=== PATIENT | female | born 1985 | race African-American/Black ===

== ENCOUNTER 2017-07-23 00:16 | Emergency (ER) | payer OTHER ==
[2017-07-23] MEDS ORDERED: CIPROFLOXACIN HCL 500 MG TABLET PO ONE (02:55)
[2017-07-23] MEDS ORDERED: CLONIDINE HCL 0.1 MG TABLET PO ONE (02:55)
--- NOTE | 2017-07-23 02:57 | ER Document Report ---
HPI - HPI Patient complains to provider of: foot ulcer Onset: Other - Chronic, worse over 2 days Onset/Duration: Worse Quality of pain: Achy Pain Level: 2 Context: Patient states that she has a chronic wound to her left foot that started as a blister one year ago and then developed into a callus. Patient states she cut the callus off 2 days ago after he started to lift up. Patient states she has noticed malodorous drainage from her foot. Patient denies any fever or significant foot tenderness. Patient does have a history of high blood pressure diabetes although has not been on any medication for the past 3 months as she had temporarily lost her insurance. Patient does have insurance now and has an appointment with her primary doctor in 2 weeks for recheck. Associated Symptoms: Other - Foot ulcer. denies: Fever Exacerbated by: Denies Relieved by: Denies Similar symptoms previously: Yes Recently seen / treated by doctor: No - ROS ROS below otherwise negative: Yes Systems Reviewed and Negative: Yes All other systems reviewed and negative - CONSTITUTIONAL Constitutional: DENIES: Fever, Chills - NEURO Neurology: DENIES: Headache - CARDIOVASCULAR Cardiovascular: DENIES: Chest pain - RESPIRATORY Respiratory: DENIES: Trouble Breathing, Coughing - GASTROINTESTINAL Gastrointestinal: DENIES: Nausea - REPRODUCTIVE Reproductive: DENIES: : - MUSCULOSKELETAL Musculoskeletal: DENIES: Swelling - DERM Skin Color: Normal Skin Problems: Ulcer Past Medical History - General Information source: Patient - Social History Smoking Status: Current Every Day Smoker Smoking Education Provided: Yes Drug Abuse: None 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 Lives with: Family Family History: Reviewed & Not Pertinent, Hypertension Patient has suicidal ideation: No Patient has homicidal ideation: No - Past Medical History Cardiac Medical History: Reports: Hx Hypertension Endocrine Medical History: Reports: Hx Diabetes Mellitus Type 2 Renal/ Medical History: Denies: Hx Peritoneal Dialysis Surgical Hx: Negative - Immunizations Hx Diphtheria, Pertussis, Tetanus Vaccination: No Vertical Provider Document - CONSTITUTIONAL Agree With Documented VS: Yes Exam Limitations: No Limitations General Appearance: WD/WN, No Apparent Distress, Obese - INFECTION CONTROL TRAVEL OUTSIDE OF THE [place] IN LAST 30 DAYS: No - HEENT HEENT: Atraumatic, Normocephalic - NECK Neck: Normal Inspection, Supple - RESPIRATORY Respiratory: Breath Sounds Normal, No Respiratory Distress O2 Sat by Pulse Oximetry: 99 - CARDIOVASCULAR Cardiovascular: Regular Rate, Regular Rhythm Pulses: Normal: Dorsalis pedis - BACK Back: Normal Inspection - MUSCULOSKELETAL/EXTREMETIES Musculoskeletal/Extremeties: MAYRA, FROM - NEURO Level of Consciousness: Awake, Alert, Appropriate Motor/Sensory: No Motor Deficit - DERM Integumentary: Warm, Dry. negative: Abscess Notes: Patient with chronic foot ulcer to plantar surface of left foot. Wound nontender. No surrounding erythema. No overt odor appreciated. Wound with a sloughy yellow-brown appearance Course - Re-evaluation Re-evalutation: 07/23/17 04:15 Patient states that she has previously taken glipizide to manage her diabetes but ran out a few months ago. Patient is uncertain of the blood pressure medication but does suspect that she has taken lisinopril to treat her blood pressure. Discussed results of patient's diagnostic tests with her. Patient encouraged to follow-up with primary doctor for recheck of her foot wound as well as her high blood pressure and diabetes management. Patient encouraged to follow-up with the wound clinic for further management of her chronic foot ulcer. Patient without any signs concerning for osteomyelitis or cellulitis at this time. Will place patient on antibiotic to cover given her reported history of malodorous drainage. - Vital Signs Vital signs: Temp Pulse Resp BP Pulse Ox 98.9 F 85 16 182/119 H 99 07/23/17 00:58 07/23/17 00:58 07/23/17 02:20 07/23/17 00:58 07/23/17 02:20 - Laboratory Result Diagrams: 07/23/17 01:57 07/23/17 01:57 Laboratory results interpreted by me: 07/23/17 06:02 Labs- Entire Visit 07/23/17 07/23/17 01:57 01:57 WBC 5.9 RBC 5.21 Hgb 14.1 Hct 41.9 MCV 80 MCH 26.9 L MCHC 33.5 RDW 14.3 H Plt Count 198 Seg Neutrophils % 46.8 Lymphocytes % 45.3 H Monocytes % 5.7 Eosinophils % 1.7 Basophils % 0.5 Absolute Neutrophils 2.7 Absolute Lymphocytes 2.7 Absolute Monocytes 0.3 Absolute Eosinophils 0.1 Absolute Basophils 0.0 Sodium 139.8 Potassium 3.6 Chloride 102 Carbon Dioxide 25 Anion Gap 13 BUN 14 Creatinine 0.57 Est GFR ( Amer) > 60 Est GFR (Non-Af Amer) > 60 Glucose 251 H Calcium 8.9 Total Bilirubin 0.6 Direct Bilirubin 0.3 Indirect Bilirubin Not Reportable Neonat Total Bilirubin Not Reportable AST 29 ALT 20 Alkaline Phosphatase 79 Total Protein 7.7 Albumin 3.8 - Diagnostic Test Radiology reviewed: Reports reviewed Discharge - Discharge Clinical Impression: Hx of essential hypertension Diabetic foot ulcer Qualifiers: Diabetic foot ulcer location: unspecified part of foot Diabetes mellitus type: type 2 Laterality: left Non-pressure ulcer stage: unspecified non-pressure ulcer stage Qualified Code(s): E11.621 - Type 2 diabetes mellitus with foot ulcer Condition: Stable Disposition: HOME, SELF-CARE Instructions: Diabetes ([facility]), Foot or Leg Ulcer ([facility]), High Blood Pressure, Requiring Treatment ([facility]) Additional Instructions: Return immediately for any new or worsening symptoms Followup with your primary care provider, call tomorrow to make a followup appointment Follow-up with the wound clinic for further management of diabetic foot ulcer Keep a log of your blood pressure as well as your blood sugar readings to take to your appointment with your primary doctor in 2 weeks. Monitor your blood sugar daily Prescriptions: Ciprofloxacin HCl [Cipro 500 mg Tablet] 500 mg PO BID #14 tablet Glipizide [Glipizide ER] 2.5 mg PO DAILY #15 tab.er.24 Lisinopril 10 mg PO DAILY #15 tablet Forms: Elevated Blood Pressure Referrals: ROBERT MITCHELL MD [Primary Care Provider] - Follow up in 3-5 days Wound Care [Provider Group] - 07/25/17
[2017-07-23 03:15] LABS: ABSOLUTE EOSINOPHILS # (AUTO) 0.1 10^3/uL (0.0-0.6); ABSOLUTE LYMPHOCYTES (AUTO) 2.7 10^3/uL (0.5-4.7); ABSOLUTE MONOCYTES (AUTO) 0.3 10^3/uL (0.1-1.4); ABSOLUTE NEUT (AUTO) 2.7 10^3/uL (1.7-8.2); BASOPHILS % (AUTO) 0.5 % (0-2); EOSINOPHILS % (AUTO) 1.7 % (0-6); HEMATOCRIT 41.9 % (36.0-47.0); HEMOGLOBIN 14.1 g/dL (12.0-15.5); HGB HCT DIFFERENCE 0.4; LYMPHOCYTES % (AUTO) 45.3 % (13-45); MEAN CORPUSCULAR HEMOGLOBIN 26.9 pg (27.0-33.4); MEAN CORPUSCULAR HGB CONC 33.5 g/dL (32.0-36.0); MEAN CORPUSCULAR VOLUME 80 fl (80-97); MONOCYTES % (AUTO) 5.7 % (3-13); RED BLOOD COUNT 5.21 10^6/uL (3.72-5.28); RED CELL DISTRIBUTION WIDTH 14.3 % (11.5-14.0); SEGMENTED NEUTROPHILS % (AUTO) 46.8 % (42-78); WHITE BLOOD COUNT 5.9 10^3/uL (4.0-10.5)
--- NOTE | 2017-07-23 03:25 | RADIOLOGY REPORT (SQ) ---
EXAM DESCRIPTION: FOOT LEFT COMPLETE COMPLETED DATE/TIME: 07/23/2017 3:07 am REASON FOR STUDY: foot wound, hx DM COMPARISON: None. NUMBER OF VIEWS: Three views. TECHNIQUE: AP, lateral and oblique radiographic images acquired of the left foot. LIMITATIONS: None. FINDINGS: MINERALIZATION: Normal. BONES: No acute fracture or dislocation. No worrisome bone lesions. Small calcaneal enthesophytes. Minimal osteophyte of the navicular at the talonavicular joint. JOINTS: No effusions. SOFT TISSUES: No soft tissue swelling. No foreign body. OTHER: No other significant finding. IMPRESSION: No acute findings. TECHNICAL DOCUMENTATION: JOB ID: [id number] [employer]- All Rights Reserved
[2017-07-23 03:30] LABS: ALANINE AMINOTRANSFERASE 20 U/L (9-52); ALBUMIN 3.8 g/dL (3.5-5.0); ALKALINE PHOSPHATASE 79 U/L (38-126); ANION GAP 13 (5-19); ASPARTATE AMINO TRANSFERASE 29 U/L (14-36); BILIRUBIN,DIRECT 0.3 mg/dL (0.0-0.4); BILIRUBIN,TOTAL 0.6 mg/dL (0.2-1.3); BLOOD UREA NITROGEN 14 mg/dL (7-20); CALCIUM 8.9 mg/dL (8.4-10.2); CARBON DIOXIDE 25 mmol/L (22-30); CHLORIDE 102 mmol/L (98-107); CREATININE RESULT 0.57 mg/dL (0.52-1.25); GLUCOSE 251 mg/dL (75-110); POTASSIUM 3.6 mmol/L (3.6-5.0); SODIUM 139.8 mmol/L (137-145); TOTAL PROTEIN 7.7 g/dL (6.3-8.2)
[2017-07-23 04:44] VITALS: BP 161/93
== END 2017-07-23 04:35 | disposition home or self-care (01) ==
LOC: ER 00:16
DX: E11.621 Type 2 diabetes mellitus with foot ulcer (principal); L97.529 Non-pressure chronic ulcer of other part of left foot with unspecified severity; T38.3X6A Underdosing of insulin and oral hypoglycemic [antidiabetic] drugs, initial encounter; Z91.128 Patient's intentional underdosing of medication regimen for other reason; Z91.14 Patient's other noncompliance with medication regimen; I10 Essential (primary) hypertension; F17.200 Nicotine dependence, unspecified, uncomplicated; Z71.6 Tobacco abuse counseling
CPT/HCPCS: 36415; 80053; 85025; 87040; 87070; 87075; 87077; 87186; 87205; 99284

== ENCOUNTER 2018-11-08 07:26 | Emergency (ER) | payer OTHER ==
[2018-11-08] MEDS ORDERED: RINGERS SOLUTION,LACTATED 1,000 ML IV ONE (08:27)
[2018-11-08 08:51] LABS: ABSOLUTE BASOPHILS # (AUTO) 0.1 10^3/uL (0.0-0.2); ABSOLUTE EOSINOPHILS # (AUTO) 0.1 10^3/uL (0.0-0.6); ABSOLUTE LYMPHOCYTES (AUTO) 1.8 10^3/uL (0.5-4.7); ABSOLUTE MONOCYTES (AUTO) 0.4 10^3/uL (0.1-1.4); ABSOLUTE NEUT (AUTO) 2.9 10^3/uL (1.7-8.2); EOSINOPHILS % (AUTO) 1.9 % (0-6); HEMATOCRIT 38.6 % (36.0-47.0); HEMOGLOBIN 13.2 g/dL (12.0-15.5); LYMPHOCYTES % (AUTO) 34.6 % (13-45); MEAN CORPUSCULAR HEMOGLOBIN 26.3 pg (27.0-33.4); MEAN CORPUSCULAR HGB CONC 34.2 g/dL (32.0-36.0); MEAN CORPUSCULAR VOLUME 77 fl (80-97); MONOCYTES % (AUTO) 8.3 % (3-13); PLATELET COUNT 234 10^3/uL (150-450); RED BLOOD COUNT 5.02 10^6/uL (3.72-5.28); RED CELL DISTRIBUTION WIDTH 16.1 % (11.5-14.0); SEGMENTED NEUTROPHILS % (AUTO) 54.2 % (42-78); TOTAL CELLS COUNTED % (AUTO) 100 %; WHITE BLOOD COUNT 5.3 10^3/uL (4.0-10.5)
[2018-11-08 09:10] LABS: ALANINE AMINOTRANSFERASE 16 U/L (9-52); ALBUMIN 3.9 g/dL (3.5-5.0); ALKALINE PHOSPHATASE 65 U/L (38-126); ANION GAP 11 (5-19); ASPARTATE AMINO TRANSFERASE 13 U/L (14-36); BILIRUBIN,DIRECT 0.2 mg/dL (0.0-0.4); BILIRUBIN,TOTAL 0.6 mg/dL (0.2-1.3); BLOOD UREA NITROGEN 9 mg/dL (7-20); CALCIUM 9.5 mg/dL (8.4-10.2); CARBON DIOXIDE 23 mmol/L (22-30); CHLORIDE 100 mmol/L (98-107); GLUCOSE 256 mg/dL (75-110); POTASSIUM 4.5 mmol/L (3.6-5.0); SODIUM 134.3 mmol/L (137-145); TOTAL PROTEIN 7.3 g/dL (6.3-8.2)
[2018-11-08 09:18] LABS: APPEARANCE,URINE CLEAR; BILIRUBIN,URINE NEGATIVE (NEGATIVE); COLOR,URINE YELLOW; GLUCOSE, URINE >=500 mg/dL (NEGATIVE); KETONES,URINE TRACE mg/dL (NEGATIVE); LEUKOCYTE ESTERASE,URINE NEGATIVE (NEGATIVE); NITRITE,URINE NEGATIVE (NEGATIVE); PROTEIN,URINE NEGATIVE (NEGATIVE); URINE SPECIFIC GRAVITY 1.043; UROBILINOGEN,URINE NEGATIVE mg/dL (<2.0)
[2018-11-08] MEDS ORDERED: NORMAL SALINE 1000 ML 1,000 ML IV ONE (09:25)
--- NOTE | 2018-11-08 09:30 | ER Document Report ---
ED General - General Chief Complaint: Dizziness Stated Complaint: DIZZY, NAUSEA, VISION ISSUE Time Seen by Provider: 11/08/18 08:19 Primary Care Provider: ROBERT MITCHELL MD [Primary Care Provider] - Follow up as needed Notes: Patient is a 33-year-old female presents to the emergency department for generalized nausea, dizziness vision loss morning. Patient states she feels as though she was standing for an extended period of time when she got really nauseous, dizzy, lightheaded broke out in a sweat. Patient states she feels as though she was seeing spots and potentially had tunnel vision. States she sat down and overall felt a lot better. Patient states she was sitting in a dark room at work and feels as though she may have fell asleep and felt a whole lot better. Patient states when she stood up again to go back to work she continued to feel nauseous so her job told her to come to the emergency room. Patient states currently while lying flat in the hospital bed she feels a whole lot better. She states she has a slight amount of nausea but is denying any dizziness, lightheadedness, headache, change in vision, chest pain, abdominal pain. Patient is denying any actual syncopal episode, she is denying hitting her head, neck, back or pain in any. Past medical history: Diabetes, hypertension Medications: Clonidine, glipizide Janumet Allergies: None Last menstrual period 09/26/2018 TRAVEL OUTSIDE OF THE [place] IN LAST 30 DAYS: No - Related Data Allergies/Adverse Reactions: No Known Allergies Allergy (Verified 11/08/18 07:26) Past Medical History - General Information source: Patient - Social History Smoking Status: Unknown if Ever Smoked Family History: Reviewed & Not Pertinent, Hypertension Patient has suicidal ideation: No Patient has homicidal ideation: No - Past Medical History Cardiac Medical History: Reports: Hx Hypertension Endocrine Medical History: Reports: Hx Diabetes Mellitus Type 2 Renal/ Medical History: Denies: Hx Peritoneal Dialysis - Immunizations Hx Diphtheria, Pertussis, Tetanus Vaccination: No Review of Systems - Review of Systems Constitutional: See HPI EENT: See HPI Cardiovascular: See HPI Respiratory: No symptoms reported Gastrointestinal: See HPI Genitourinary: No symptoms reported Female Genitourinary: See HPI Musculoskeletal: No symptoms reported Skin: No symptoms reported Hematologic/Lymphatic: No symptoms reported Neurological/Psychological: See HPI Physical Exam - Vital signs Vitals: Temp Pulse Resp BP Pulse Ox 98.6 F 79 18 154/99 H 100 11/08/18 07:31 11/08/18 07:31 11/08/18 07:31 11/08/18 07:31 11/08/18 07:31 - Notes Notes: GENERAL: Alert, interacts well. No acute distress. HEAD: Normocephalic, atraumatic. EYES: Pupils equal, round, and reactive to light. Extraocular movements intact. ENT: Oral mucosa moist, tongue midline. NECK: Full range of motion. Supple. Trachea midline. LUNGS: Clear to auscultation bilaterally, no wheezes, rales, or rhonchi. No respiratory distress. HEART: Regular rate and rhythm. No murmur ABDOMEN: Soft, non-tender. Non-distended. Bowel sounds present in all 4 quadrants. EXTREMITIES: Moves all 4 extremities spontaneously. No edema, normal radial and dorsalis pedis pulses bilaterally. No cyanosis. BACK: no cervical, thoracic, lumbar midline tenderness. No saddle anesthesia, normal distal neurovascular exam. NEUROLOGICAL: Alert and oriented x3. Normal speech. cranial nerves II through XII grossly intact PSYCH: Normal affect, normal mood. SKIN: Warm, dry, normal turgor. No rashes or lesions noted. Course - Re-evaluation Re-evalutation: 11/08/18 10:23 Patient's labs reveal no signs of leukocytosis, no signs of anemia. Patient's sodium is 134.3, treated with normal saline solution in the emergency department. Patient's initial blood sugar glucose is 256 with positive ketones noted on her urine. Patient's specific gravity was also elevated at 1.043. Treated with 2 total liters of fluid resuscitation in the emergency room. Patient does have a positive hCG. Patient also had positive orthostatics noted with a heart rate at 66 while lying flat and went up to 92 while standing. Again patient fluid resuscitated in the emergency department and overall feels a lot better. 11/08/18 12:47 After fluid resuscitation in the emergency department patient states she overall feels a lot better. Patient's blood sugar glucose is down to 172. Discussed close follow-up with primary care provider to inevitably get in with an MEDICAL SUPPORT SPECIALIST. Discussed continued care of her diabetes closely and need to discuss continued medications for her hypertension now due to her being . Patient voices understanding and states she will call her primary care provider today. Close return precautions discussed. - Vital Signs Vital signs: Temp Pulse Resp BP Pulse Ox 98.6 F 66 20 137/79 H 100 11/08/18 07:31 11/08/18 10:14 11/08/18 10:13 11/08/18 10:14 11/08/18 10:13 - Laboratory Result Diagrams: 11/08/18 08:35 11/08/18 08:35 Laboratory results interpreted by me: 11/08/18 11/08/18 11/08/18 08:35 08:35 09:03 MCV 77 L MCH 26.3 L RDW 16.1 H Sodium 134.3 L Glucose 256 H POC Glucose AST 13 L Urine Glucose (UA) >=500 H Urine Ketones TRACE H Urine HCG, Qual POSITIVE H 11/08/18 12:05 MCV MCH RDW Sodium Glucose POC Glucose 172 H AST Urine Glucose (UA) Urine Ketones Urine HCG, Qual Discharge - Discharge Clinical Impression: Dehydration Qualifiers: Weeks of gestation: less than 8 weeks Qualified Code(s): Z3A.01 - Less than 8 weeks gestation of Condition: Stable Disposition: HOME, SELF-CARE Instructions: Dehydration ([facility]), ([facility]) Additional Instructions: As we discussed today your labs reveal signs of dehydration. You are also . It is unsure of exactly how far along you are C need to follow-up with your primary care provider and inevitably MEDICAL SUPPORT SPECIALIST. Also as we discussed you need to call your primary care provider today in order to make an appointment in a rather emergent fashion due to the medications that you are on and them not being safe in . Please make sure if you have any other concerns to return to the emergency room. Referrals: ROBERT MITCHELL MD [Primary Care Provider] - Follow up as needed
[2018-11-08 13:12] VITALS: BP 156/105
== END 2018-11-08 12:50 | disposition home or self-care (01) ==
LOC: ER 07:26
DX: O99.281 Endocrine, nutritional and metabolic diseases complicating pregnancy, first trimester (principal); E86.0 Dehydration; O26.891 Other specified pregnancy related conditions, first trimester; R11.0 Nausea; R42 Dizziness and giddiness; O24.111 Pre-existing type 2 diabetes mellitus, in pregnancy, first trimester; E11.9 Type 2 diabetes mellitus without complications; Z79.84 Long term (current) use of oral hypoglycemic drugs; O16.1 Unspecified maternal hypertension, first trimester; Z3A.01 Less than 8 weeks gestation of pregnancy
CPT/HCPCS: 99284; 96360; 96361; 36415; 87086; 82962; 85025; 81025; 80053; 81001; J7030; J7120

== ENCOUNTER 2018-11-14 19:55 | Observation (INO) | payer OTHER ==
[2018-11-14] MEDS ORDERED: RINGERS SOLUTION,LACTATED 1,000 ML IV ONE ×2 (21:52→23:03)
--- NOTE | 2018-11-14 21:55 | ER Document Report ---
ED Medical Screen (RME) - General Chief Complaint: High Blood Sugar Stated Complaint: BLOOD SUGAR ISSUE Time Seen by Provider: 11/14/18 21:52 Primary Care Provider: ROBERT MITCHELL MD [Primary Care Provider] - Follow up as needed Notes: Patient is a 33-year-old female recently told she was , believe she is 7 weeks presents to the emergency department for an elevation in her blood sugar. Patient states she reported to this facility recently for generalized nausea and vomiting. States she was told she was and followed up with her primary care. Primary care changed her medications to Metformin and labetalol for her diabetes and hypertension. Patient states they tried to place her on Humalog and then inevitably NovoLog but patient states that the medication was over $600 so she was on to get it. Patient states she took her blood sugar today and it was over 300 which is why she presents to the emergency room. Patient states she did vomit once today but states she feels as though that may be associated with her morning sickness. Past medical history: Diabetes, hypertension Medications: Metformin, labetalol Allergies: None GENERAL: Alert, interacts well. No acute distress. HEAD: Normocephalic, atraumatic. ABDOMEN: Soft, non-tender. Non-distended. Bowel sounds present in all 4 quadrants. EXTREMITIES: Moves all 4 extremities spontaneously. No edema, normal radial and dorsalis pedis pulses bilaterally. No cyanosis. SKIN: Warm, dry, normal turgor. No rashes or lesions noted. I have greeted and performed a rapid initial assessment of this patient. A comprehensive ED assessment and evaluation of the patient, analysis of test results and completion of the medical decision making process will be conducted by additional ED providers. TRAVEL OUTSIDE OF THE [place] IN LAST 30 DAYS: No - Related Data Allergies/Adverse Reactions: No Known Allergies Allergy (Verified 11/08/18 07:26) Past Medical History - Past Medical History Cardiac Medical History: Reports: Hx Hypertension Endocrine Medical History: Reports: Hx Diabetes Mellitus Type 2 Renal/ Medical History: Denies: Hx Peritoneal Dialysis - Immunizations Hx Diphtheria, Pertussis, Tetanus Vaccination: No Physical Exam - Vital signs Vitals: Temp Pulse Resp BP Pulse Ox 99.5 F 77 18 190/110 H 100 11/14/18 20:05 11/14/18 20:05 11/14/18 20:05 11/14/18 20:05 11/14/18 20:05 Course - Vital Signs Vital signs: Temp Pulse Resp BP Pulse Ox 99.5 F 77 18 190/110 H 100 11/14/18 20:05 11/14/18 20:05 11/14/18 20:05 11/14/18 20:05 11/14/18 20:05 Doctor's Discharge - Discharge Referrals: ROBERT MITCHELL MD [Primary Care Provider] - Follow up as needed
[2018-11-14 22:30] LABS: ABSOLUTE BASOPHILS # (AUTO) 0.1 10^3/uL (0.0-0.2); ABSOLUTE EOSINOPHILS # (AUTO) 0.1 10^3/uL (0.0-0.6); ABSOLUTE LYMPHOCYTES (AUTO) 2.6 10^3/uL (0.5-4.7); ABSOLUTE MONOCYTES (AUTO) 0.7 10^3/uL (0.1-1.4); ABSOLUTE NEUT (AUTO) 4.7 10^3/uL (1.7-8.2); BASOPHILS % (AUTO) 0.8 % (0-2); EOSINOPHILS % (AUTO) 1.2 % (0-6); HEMATOCRIT 38.3 % (36.0-47.0); HEMOGLOBIN 12.9 g/dL (12.0-15.5); LYMPHOCYTES % (AUTO) 31.7 % (13-45); MEAN CORPUSCULAR HEMOGLOBIN 25.9 pg (27.0-33.4); MEAN CORPUSCULAR HGB CONC 33.6 g/dL (32.0-36.0); MEAN CORPUSCULAR VOLUME 77 fl (80-97); MONOCYTES % (AUTO) 8.2 % (3-13); PLATELET COUNT 255 10^3/uL (150-450); RED BLOOD COUNT 4.96 10^6/uL (3.72-5.28); SEGMENTED NEUTROPHILS % (AUTO) 58.1 % (42-78); TOTAL CELLS COUNTED % (AUTO) 100 %; WHITE BLOOD COUNT 8.2 10^3/uL (4.0-10.5)
[2018-11-14 22:52] LABS: APPEARANCE,URINE CLEAR; BILIRUBIN,URINE NEGATIVE (NEGATIVE); COLOR,URINE YELLOW; GLUCOSE, URINE >=500 mg/dL (NEGATIVE); KETONES,URINE NEGATIVE (NEGATIVE); LEUKOCYTE ESTERASE,URINE NEGATIVE (NEGATIVE); NITRITE,URINE NEGATIVE (NEGATIVE); PROTEIN,URINE NEGATIVE (NEGATIVE); URINE SPECIFIC GRAVITY 1.031; UROBILINOGEN,URINE NEGATIVE mg/dL (<2.0)
[2018-11-14 23:02] LABS: ALANINE AMINOTRANSFERASE 24 U/L (9-52); ALBUMIN 4.2 g/dL (3.5-5.0); ALKALINE PHOSPHATASE 71 U/L (38-126); ANION GAP 11 (5-19); ASPARTATE AMINO TRANSFERASE 14 U/L (14-36); BILIRUBIN,DIRECT 0.2 mg/dL (0.0-0.4); BILIRUBIN,TOTAL 0.6 mg/dL (0.2-1.3); BLOOD UREA NITROGEN 11 mg/dL (7-20); CALCIUM 9.4 mg/dL (8.4-10.2); CARBON DIOXIDE 24 mmol/L (22-30); CHLORIDE 97 mmol/L (98-107); GLUCOSE 271 mg/dL (75-110); POTASSIUM 4.2 mmol/L (3.6-5.0); SODIUM 131.5 mmol/L (137-145); TOTAL PROTEIN 7.6 g/dL (6.3-8.2)
[2018-11-15] MEDS ORDERED: LABETALOL HCL 200 MG TABLET PO ONE ×2 (00:06→06:30)
--- NOTE | 2018-11-15 00:10 | ER Document Report ---
ED General - General Chief Complaint: High Blood Sugar Stated Complaint: BLOOD SUGAR ISSUE Time Seen by Provider: 11/14/18 21:52 Notes: Patient is a 33-year-old female recently told she was , believe she is 7 weeks presents to the emergency department for an elevation in her blood sugar. Patient states she reported to this facility recently for generalized nausea and vomiting. States she was told she was and followed up with her primary care. Primary care changed her medications to Metformin and labetalol for her diabetes and hypertension. Patient states they tried to place her on Humalog and then inevitably NovoLog but patient states that the medication was over $600 so she was on to get it. Patient states she took her blood sugar today and it was over 300 which is why she presents to the emergency room. Patient states she did vomit once today but states she feels as though that may be associated with her morning sickness. Past medical history: Diabetes, hypertension Medications: Metformin, labetalol Allergies: None TRAVEL OUTSIDE OF THE [place] IN LAST 30 DAYS: No - Related Data Allergies/Adverse Reactions: No Known Allergies Allergy (Verified 11/08/18 07:26) Past Medical History - General Information source: Patient - Social History Smoking Status: Never Smoker Family History: Reviewed & Not Pertinent, Hypertension Patient has suicidal ideation: No Patient has homicidal ideation: No - Past Medical History Cardiac Medical History: Reports: Hx Hypertension Endocrine Medical History: Reports: Hx Diabetes Mellitus Type 2 Renal/ Medical History: Denies: Hx Peritoneal Dialysis - Immunizations Hx Diphtheria, Pertussis, Tetanus Vaccination: No Review of Systems - Review of Systems Constitutional: No symptoms reported EENT: No symptoms reported Cardiovascular: No symptoms reported. denies: Chest pain, Dyspnea Respiratory: No symptoms reported. denies: Short of breath Gastrointestinal: See HPI Genitourinary: No symptoms reported Female Genitourinary: No symptoms reported Musculoskeletal: No symptoms reported Skin: No symptoms reported Hematologic/Lymphatic: No symptoms reported Neurological/Psychological: No symptoms reported. denies: Headaches Physical Exam - Vital signs Vitals: Temp Pulse Resp BP Pulse Ox 99.5 F 77 18 190/110 H 100 11/14/18 20:05 11/14/18 20:05 11/14/18 20:05 11/14/18 20:05 11/14/18 20:05 - Notes Notes: GENERAL: Alert, interacts well. No acute distress. HEAD: Normocephalic, atraumatic. EYES: Pupils equal, round, and reactive to light. Extraocular movements intact. ENT: Oral mucosa moist, tongue midline. NECK: Full range of motion. Supple. Trachea midline. LUNGS: Clear to auscultation bilaterally, no wheezes, rales, or rhonchi. No respiratory distress. HEART: Regular rate and rhythm. No murmur ABDOMEN: Obese soft, non-tender. Non-distended. Bowel sounds present in all 4 quadrants. EXTREMITIES: Moves all 4 extremities spontaneously. No edema, normal radial and dorsalis pedis pulses bilaterally. No cyanosis. 5 out of 5 strength all 4 extremities BACK: no cervical, thoracic, lumbar midline tenderness. No saddle anesthesia, normal distal neurovascular exam. NEUROLOGICAL: Alert and oriented x3. Normal speech. cranial nerves II through XII grossly intact PSYCH: Normal affect, normal mood. SKIN: Warm, dry, normal turgor. No rashes or lesions noted. Course - Re-evaluation Re-evalutation: Discussed case with patient's primary care provider Dr. Arshad. He is requesting admission to the hospital for her blood pressure control. He is requesting sliding scale dosing for her blood sugar. Patient's labs show an anion gap of 11, blood sugar 271, no ketones noted on her urine. She has not noted to be in diabetic ketoacidosis. Her blood pressure is noted to continue to be higher. Treated with 100 mg of labetalol and admission to Dr. Arshad for observation. - Vital Signs Vital signs: Temp Pulse Resp BP Pulse Ox 98.7 F 88 18 165/87 H 99 11/15/18 04:33 11/15/18 04:33 11/15/18 04:33 11/15/18 06:05 11/15/18 04:33 - Laboratory Result Diagrams: 11/14/18 22:12 11/14/18 22:12 Laboratory results interpreted by me: 11/14/18 11/14/18 11/14/18 22:11 22:12 22:12 MCV 77 L MCH 25.9 L RDW 16.0 H Sodium 131.5 L Chloride 97 L Glucose 271 H Urine Glucose (UA) >=500 H Urine HCG, Qual POSITIVE H Discharge - Discharge Clinical Impression: Hyperglycemia Hypertension affecting Qualifiers: Trimester: first trimester Qualified Code(s): O16.1 - Unspecified maternal hypertension, first trimester Condition: Stable Disposition: ADMITTED OBSERVATION Admitting Provider: Pavithra Unit Admitted: Medical Floor
[2018-11-15] MEDS ORDERED: INSULIN REG, HUMAN 100 UNIT/ML 3 ML VIAL (PYX) IV ONE (00:36)
[2018-11-15] MEDS ORDERED: DEXTROSE 40% GEL 15 GM TUBE PO PRN ×3 (07:00→19:16)
[2018-11-15] MEDS ORDERED: DEXTROSE 50%-WATER SYRINGE 12.5 GM/25 ML DOSE IV PRN (07:00)
[2018-11-15] MEDS ORDERED: GLUCAGON,HUMAN RECOMB 1 MG INJ IM PRN ×2 (07:00→19:16)
[2018-11-15] MEDS ORDERED: DEXTROSE 40% GEL 15 GM TUBE X 2 PO PRN (07:00)
[2018-11-15] MEDS ORDERED: DEXTROSE 50%-WATER SYRINGE 25 GM/50 ML DOSE IV PRN (07:00)
[2018-11-15] MEDS ORDERED: NORMAL SALINE 1000 ML 1,000 ML IV PRN (08:08)
[2018-11-15] MEDS: INSULIN LISPRO 100 UNIT/ML 3 ML VIAL SUBCUT SCH ×3 (08:23→18:06)
[2018-11-15] MEDS ORDERED: LABETALOL HCL 200 MG TABLET PO SCH (10:00)
[2018-11-15] MEDS ORDERED: (PENDING PHARMACY ID) (Metformin Hcl [Metformin Hcl] 1,000 MG) PO SCH (10:00)
[2018-11-15] MEDS ORDERED: PRENATAL VITAMIN W DHA CAPSULE PO SCH (10:00)
[2018-11-15] MEDS: METFORMIN HCL 500 MG TABLET PO SCH ×2 (10:01→18:10)
[2018-11-15 10:17] LABS: ANION GAP 10 (5-19); BLOOD UREA NITROGEN 9 mg/dL (7-20); CALCIUM 9.6 mg/dL (8.4-10.2); CARBON DIOXIDE 24 mmol/L (22-30); CHLORIDE 101 mmol/L (98-107); GLUCOSE 232 mg/dL (75-110); POTASSIUM 4.4 mmol/L (3.6-5.0); SODIUM 135.4 mmol/L (137-145)
--- NOTE | 2018-11-15 12:36 | RADIOLOGY REPORT (SQ) ---
EXAM DESCRIPTION: U/S [id number] TRNABD 1GES W/ODOP COMPLETED DATE/TIME: 11/15/2018 12:10 pm REASON FOR STUDY: pt with pos preg test believed to be 7w per LMP COMPARISON: None. TECHNIQUE: Transabdominal static and realtime grayscale images acquired of the pelvis. Additional se lected spectral and color Doppler images recorded. All images stored on PACs. bHCG: None available CLINICAL DATES: 09/26/2018 LIMITATIONS: None. FINDINGS: FETUS: Single Living intrauterine . ULTRASOUND EGA: 7 weeks 0 days ULTRASOUND ZOIE: 07/04/2019 EFW: Not applicable less than 20 weeks. CRL: 9.8 mm FHR: 157 beats per minute. SURVEY: Too early to assess AMNIOTIC FLUID: Adequate amount. PLACENTA: Not yet developed due to early gestation. SUBCHORIONIC BLEED: No SIZE OF BLEED: Not applicable. UTERUS: No masses. No anomalies. Uterus is 11 x 6 x 5 cm in size CERVICAL LENGTH: Closed, 2.4 cm in length RIGHT ADNEXA: Not visualized due to adnexal bowel gas. LEFT ADNEXA: Not visualized due to adnexal bowel gas FREE FLUID: None. OTHER: No other significant finding. IMPRESSION: LIVING INTRAUTERINE . EGA 7 weeks 0 days Trimester of : First - 0 to 13 weeks. TECHNICAL DOCUMENTATION: JOB ID: [id number] [employer]- All Rights Reserved rev Reading location - IP/workstation name: [email or web address]
--- NOTE | 2018-11-15 13:22 | PDOC H&P ---
History of Present Illness Admission Date/PCP: 11/15/18 00:12 [facility] Patient complains of: High blood sugar History of Present Illness: AAMIR GUSMAN is a 33 year old female known to my practice who was recently diagnosed with intrauterine . In view of her her medication for diabetes mellitus and hypertension were changed accordingly. Patient reported to the ED due to elevated blood glucose level on home monitor. She claimed that her prescribed Humalog will cost about $600.00 out of pocket and she could not afford it. Her pharmacy is in the process of resubmitting Novolog insulin and she is not aware how much it will cost her due to her current prescription coverage limitation. She reported that her home accuchek reading remain persistently above 300 mg/dl. She denied any significant nausea, vomiting, abdominal pain, or abnormal vaginal bleeding. No fever or chills. No urinary frequency, dysuria or flank pain. No chest pain or difficulty with her breathing. Her initial evaluation in the ED was significant for hyperglycemia, elevated blood pressure and hyponatremia. Her morbidities include diabetes mellitus type 2, hypertension, and morbid obesity. She was advised hospitalization on observation bed for further evaluation and management. Past Medical History Cardiac Medical History: Reports: Hypertension Endocrine Medical History: Reports: Diabetes Mellitus Type 2 Social History Smoking Status: Never Smoker - Advance Directive Resuscitation Status: Full Code Family History Family History: Reviewed & Not Pertinent, Hypertension Parental Family History Reviewed: Yes Children Family History Reviewed: Yes Sibling(s) Family History Reviewed.: Yes Medication/Allergy Home Medications: Labetalol HCl 100 mg PO BID 11/15/18 Metformin HCl 1,000 mg PO BID 11/15/18 Allergies/Adverse Reactions: No Known Allergies Allergy (Verified 11/08/18 07:26) Review of Systems Constitutional: ABSENT: chills, fever(s), headache(s), weight gain, weight loss Eyes: ABSENT: visual disturbances Ears: ABSENT: hearing changes Cardiovascular: ABSENT: chest pain, dyspnea on exertion, edema, orthropnea, palpitations Respiratory: ABSENT: cough, hemoptysis Gastrointestinal: ABSENT: abdominal pain, constipation, diarrhea, hematemesis, hematochezia, nausea, vomiting Genitourinary: ABSENT: dysuria, hematuria Musculoskeletal: ABSENT: joint swelling Integumentary: ABSENT: rash, wounds Neurological: ABSENT: abnormal gait, abnormal speech, confusion, dizziness, focal weakness, syncope Psychiatric: ABSENT: anxiety, depression, homidical ideation, suicidal ideation Endocrine: ABSENT: cold intolerance, heat intolerance, polydipsia, polyuria Hematologic/Lymphatic: ABSENT: easy bleeding, easy bruising, lymphadenopathy Physical Exam Vital Signs: Temp Pulse Resp BP Pulse Ox 98.5 F 83 18 152/89 H 99 11/15/18 07:54 11/15/18 07:54 11/15/18 07:54 11/15/18 07:54 11/15/18 07:54 Intake & Output 11/14/18 11/15/18 11/16/18 06:59 06:59 06:59 Intake Total 1999 Balance 1999 Weight 149.232 kg General appearance: PRESENT: no acute distress, morbidly obese Head exam: PRESENT: atraumatic, normocephalic Eye exam: PRESENT: conjunctiva pink, EOMI, PERRLA. ABSENT: scleral icterus Ear exam: PRESENT: normal external ear exam Mouth exam: PRESENT: moist Neck exam: PRESENT: full ROM. ABSENT: JVD, lymphadenopathy, thyromegaly Respiratory exam: PRESENT: clear to auscultation [place] Cardiovascular exam: PRESENT: RRR. ABSENT: diastolic murmur, rubs, systolic murmur Pulses: PRESENT: normal dorsalis pedis pul, +2 pedal pulses bilateral Vascular exam: PRESENT: normal capillary refill. ABSENT: pallor GI/Abdominal exam: PRESENT: normal bowel sounds, soft. ABSENT: distended, guarding, mass, organolmegaly, rebound, tenderness Rectal exam: PRESENT: deferred Extremities exam: ABSENT: pedal edema Musculoskeletal exam: ABSENT: deformity Neurological exam: PRESENT: alert, awake, oriented to person, oriented to place, oriented to time, oriented to situation, CN II-XII grossly intact. ABSENT: motor sensory deficit Psychiatric exam: PRESENT: appropriate affect, normal mood. ABSENT: homicidal ideation, suicidal ideation Skin exam: PRESENT: dry, warm Results Laboratory Results: 11/14/18 22:12 11/14/18 22:12 11/14/18 11/14/18 11/14/18 22:11 22:12 22:12 WBC 8.2 RBC 4.96 Hgb 12.9 Hct 38.3 MCV 77 L MCH 25.9 L MCHC 33.6 RDW 16.0 H Plt Count 255 Seg Neutrophils % 58.1 Lymphocytes % 31.7 Monocytes % 8.2 Eosinophils % 1.2 Basophils % 0.8 Absolute Neutrophils 4.7 Absolute Lymphocytes 2.6 Absolute Monocytes 0.7 Absolute Eosinophils 0.1 Absolute Basophils 0.1 Sodium 131.5 L Potassium 4.2 Chloride 97 L Carbon Dioxide 24 Anion Gap 11 BUN 11 Creatinine 0.58 Est GFR ( Amer) > 60 Est GFR (Non-Af Amer) > 60 Glucose 271 H Calcium 9.4 Total Bilirubin 0.6 AST 14 ALT 24 Alkaline Phosphatase 71 Total Protein 7.6 Albumin 4.2 Urine Color YELLOW Urine Appearance CLEAR Urine pH 6.0 Ur Specific [place] 1.031 Urine Protein NEGATIVE Urine Glucose (UA) >=500 H Urine Ketones NEGATIVE Urine Blood NEGATIVE Urine Nitrite NEGATIVE Ur Leukocyte Esterase NEGATIVE Urine WBC (Auto) 0 Urine RBC (Auto) 0 Assessment & Plan - Diagnosis (1) Uncontrolled type 2 diabetes mellitus Qualifiers: Glycemic state: with hyperglycemia Qualified Code(s): E11.65 - Type 2 diabetes mellitus with hyperglycemia Is this a current diagnosis for this admission?: Yes Plan: Maintain on qachs accuchek and Humalog Insulin sliding scale coverage and IV fluid support. She will remain on her preadmission Metformin 1000 mg p.o bid therapy. (2) Uncontrolled stage 2 hypertension Is this a current diagnosis for this admission?: Yes Plan: I will adjust her Labetalol dosage as indicated to keep her SBP < 140mmHg and DBP < 90 mmHg. (3) and [id number]-[id number] diabetes mellitus in first trimester Is this a current diagnosis for this admission?: Yes Plan: Continue her medication management with vitamin administration. (4) Morbid (severe) obesity due to excess calories Plan: Maintain on adequate calorie intake in view of her . Encourage portion control and walking exercise. - Time Time Spent: 50 to 70 Minutes Medications reviewed and adjusted accordingly: Yes Anticipated discharge: Home Within: within 24 hours - Inpatient Certification Post Hospital Care: D/C It Service Delivery Manager Documentation - Patient may benefit from OB medicaid assistance to cover her medication during pregmnancy. I will request consultation with land use planner on this issue. If her blood pressure remain fairly controlled and her blood glucose remain in reasonable ranhe she will be discharge home withing next 24 hours. - Plan Summary Plan Summary: See admitting attending physician orders as outline for above care plan.
--- NOTE | 2018-11-15 17:53 | PDOC CONSULTATION ---
Consultation Consult Date: 11/15/18 Attending physician:: ROBERT MITCHELL Consult reason:: HTN and Type II DM and newly History of Present Illness Admission Date/PCP: 11/15/18 00:12 ROBERT MITCHELL Patient complains of: hyperglycemia and poor control of sugars and BP History of Present Illness: AAMIR GUSMAN is a 33 year old female at 7+1ega by known LMP which is c/w US today. ZOIE 07/03/2019 by LMP. She reports that she presented to ER for severely elevated BS at 300 on 11/14. She reports that she was on Janumet and Clonidine and another pill prior to . She is unsure of dosage. She reports that she was dx with DM and HTN approx 4 years ago. Her Hb A1c per report at dx was approx 11. HbA1c 8.7 today. She reports some morning sickness but o/w feels ok. She denies any other medical issues at this time. She was admitted by her PCM and PCM has consulted OB due to with comorbidities of HTN and DM Past Medical History LMP: 09/26/2018 Gynecological Infection: No Cardiac Medical History: Reports: Hypertension Endocrine Medical History: Reports: Diabetes Mellitus Type 2 Social History Information Source: Patient Lives with: Family Smoking Status: Never Smoker Frequency of Alcohol Use: None Hx Recreational Drug Use: No Drugs: None Hx Prescription Drug Abuse: No - Advance Directive Resuscitation Status: Full Code Family History Family History: Reviewed & Not Pertinent, Hypertension Parental Family History Reviewed: No Children Family History Reviewed: NA Sibling(s) Family History Reviewed.: NA Medication/Allergy Home Medications: Labetalol HCl 100 mg PO BID 11/15/18 Metformin HCl 1,000 mg PO BID 11/15/18 Allergies/Adverse Reactions: No Known Allergies Allergy (Verified 11/08/18 07:26) Review of Systems Constitutional: ABSENT: chills, fever(s), headache(s), weight gain, weight loss Ears: ABSENT: hearing changes Respiratory: ABSENT: cough, hemoptysis Gastrointestinal: ABSENT: abdominal pain, constipation, diarrhea, hematemesis, hematochezia, nausea, vomiting Genitourinary: ABSENT: dysuria, hematuria Neurological: ABSENT: abnormal gait, abnormal speech, confusion, dizziness, focal weakness, syncope Endocrine: ABSENT: cold intolerance, heat intolerance, polydipsia, polyuria Hematologic/Lymphatic: ABSENT: easy bleeding, easy bruising Physical Exam - Physical Exam Vital Signs: Temp Pulse Resp BP Pulse Ox 98.6 F 71 18 154/95 H 100 11/15/18 16:02 11/15/18 16:02 11/15/18 16:02 11/15/18 16:02 11/15/18 16:02 Intake & Output 11/14/18 11/15/18 11/16/18 06:59 06:59 06:59 Intake Total 1999 Balance 1999 Weight 149.232 kg General appearance: PRESENT: no acute distress, obese, well-developed, well- nourished Head exam: PRESENT: atraumatic, normocephalic Neck exam: PRESENT: full ROM. ABSENT: carotid bruit, JVD, lymphadenopathy, thyromegaly Respiratory exam: PRESENT: clear to auscultation [place], symmetrical, unlabored Cardiovascular exam: PRESENT: RRR. ABSENT: diastolic murmur, rubs, systolic m urmur Pulses: PRESENT: normal dorsalis pedis pul, +2 pedal pulses bilateral GI/Abdominal exam: PRESENT: normal bowel sounds, soft. ABSENT: distended, guarding, mass, organolmegaly, rebound, tenderness Rectal exam: PRESENT: deferred Extremities exam: PRESENT: full ROM. ABSENT: calf tenderness, clubbing, pedal edema Neurological exam: PRESENT: alert, awake, oriented to person, oriented to place, oriented to time, oriented to situation, CN II-XII grossly intact. ABSENT: motor sensory deficit Psychiatric exam: PRESENT: appropriate affect, normal mood. ABSENT: homicidal ideation, suicidal ideation Result Laboratory Results: 11/14/18 22:12 11/15/18 09:06 11/14/18 11/14/18 11/14/18 22:11 22:12 22:12 WBC 8.2 RBC 4.96 Hgb 12.9 Hct 38.3 MCV 77 L MCH 25.9 L MCHC 33.6 RDW 16.0 H Plt Count 255 Seg Neutrophils % 58.1 Lymphocytes % 31.7 Monocytes % 8.2 Eosinophils % 1.2 Basophils % 0.8 Absolute Neutrophils 4.7 Absolute Lymphocytes 2.6 Absolute Monocytes 0.7 Absolute Eosinophils 0.1 Absolute Basophils 0.1 Sodium 131.5 L Potassium 4.2 Chloride 97 L Carbon Dioxide 24 Anion Gap 11 BUN 11 Creatinine 0.58 Est GFR ( Amer) > 60 Est GFR (Non-Af Amer) > 60 Glucose 271 H Calcium 9.4 Total Bilirubin 0.6 AST 14 ALT 24 Alkaline Phosphatase 71 Total Protein 7.6 Albumin 4.2 Urine Color YELLOW Urine Appearance CLEAR Urine pH 6.0 Ur Specific [place] 1.031 Urine Protein NEGATIVE Urine Glucose (UA) >=500 H Urine Ketones NEGATIVE Urine Blood NEGATIVE Urine Nitrite NEGATIVE Ur Leukocyte Esterase NEGATIVE Urine WBC (Auto) 0 Urine RBC (Auto) 0 11/15/18 09:06 WBC RBC Hgb Hct MCV MCH MCHC RDW Plt Count Seg Neutrophils % Lymphocytes % Monocytes % Eosinophils % Basophils % Absolute Neutrophils Absolute Lymphocytes Absolute Monocytes Absolute Eosinophils Absolute Basophils Sodium 135.4 L Potassium 4.4 Chloride 101 Carbon Dioxide 24 Anion Gap 10 BUN 9 Creatinine 0.64 Est GFR ( Amer) > 60 Est GFR (Non-Af Amer) > 60 Glucose 232 H Calcium 9.6 Total Bilirubin AST ALT Alkaline Phosphatase Total Protein Albumin Urine Color Urine Appearance Urine pH Ur Specific [place] Urine Protein Urine Glucose (UA) Urine Ketones Urine Blood Urine Nitrite Ur Leukocyte Esterase Urine WBC (Auto) Urine RBC (Auto) Impressions: Obstetrics Ultrasound 11/15/18 00:00 IMPRESSION: LIVING INTRAUTERINE . EGA 7 weeks 0 days Trimester of : First - 0 to 13 weeks. Assessment & Plan - Diagnosis (1) Uncontrolled type 2 diabetes mellitus Qualifiers: Glycemic state: with hyperglycemia Qualified Code(s): E11.65 - Type 2 diabetes mellitus with hyperglycemia Is this a current diagnosis for this admission?: Yes Plan: Uncontrolled Type II DM Prolonged discussion with patient regarding the risks to with HbA1c of 8.7 - - including Miscarriage, IUFD, congenital cardiac anomalies, labor, delivery, PreE, NICU admission for baby etc. Reviewed goals for DM in are much more stringent than outside and that intervention now to move toward those goals is important. Metformin unfortunately is not achieving this goal was discontinued as Insulin is better to manage her accuchecks in . Numerical Control Drill Press Operator consult placed Accucheck changed to fasting and 2hr pp Will start insulin with targets as follows. Accucheck Goals: Fasting <90 2hr PP <120 (if needs to do 1 hr PP as outpatient then goal is <140) Tighter SSI orders written. SS consult for assistance with medicaid placed by [facility] - Thank you. Insulin regimen starting dose based on weight and gestational age with 2/3 to 1/3 rule (but this is just a starting dose and will need to be adjusted depending on her response.) We are happy to manage this in hospital and outpatient. 0.3 units per kg (150Kg) - total 45 units of insulin per day in divided dosage Per Calc: NPH 20u QAM, 10u QHS with snack - - adjusted to 15/10 to see how she responds then will increase from there. Regular 10u ACbrkfast, 5u ACdinner May also need to add regular insulin coverage for lunch depending on values. All insulin orders written. Consults that will be needed for DM as outpatient: Ophtho for eye exam, Cardiology for Maternal ECHO and EKG, WOODS SUPERINTENDENT at [facility] for management of (we will then place consult for MFM and ECHO). Due to increased risks as above: needs TSH (ordered), Needs 24 hr UTP and P:C ratio (ordered), (2) Morbid (severe) obesity due to excess calories Is this a current diagnosis for this admission?: Yes Plan: BMI 46 which puts patient at risk for PreE, delivery, obstructed labor, cardiac anomalies and peripartum thrombosis among many other things. Recommendations are as above for already addressed DM. Additionally will need SCDs and likely lovenox peripartum. Will address these issues again in office. (3) Hypertension affecting Qualifiers: Trimester: first trimester Qualified Code(s): O16.1 - Unspecified maternal hypertension, first trimester Is this a current diagnosis for this admission?: Yes Plan: BPs still with very poor control. Per patient reports she seems to have been on several medications to manage her BPs. 24 hr UTP ordered. Need to establish baseline renal function due to risk of PreE. Will increase Labetolol to 200mg TID, may need a secondary agent as well. Reviewed risks of HTN in and . - Time Critical Time spent with patient: 25-34 minutes Medications reviewed and adjusted accordingly: Yes Anticipated discharge: Home Within: within 48 hours - Inpatient Certification Based on my medical assessment, after consideration of the patient's comorbiditi es, presenting symptoms, or acuity I expect that the services needed warrant INPATIENT care.: Yes I certify that my determination is in accordance with my understanding of [facility]'s requirements for reasonable and necessary INPATIENT services [42 CFR 412.3e].: Yes Medical Necessity: Failure to Improve With Outpatient Therapy, Significant Comorbidiites Make Outpatient Treatment Too Risky, Need Close Monitoring Due to Risk of Patient Decompensation Post Hospital Care: D/C Bill Adjuster Documentation - Plan Summary Plan Summary: will try to continue to adjust meds and then continue management as an outpatient.
[2018-11-15 19:08] LABS: URIC ACID 2.7 mg/dL (2.5-6.2)
[2018-11-15] MEDS ORDERED: DEXTROSE 50%-WATER 25 GM/50 ML DISP.SYRIN IV PRN ×2 (19:16)
[2018-11-15 19:25] LABS: FREE T4 (FREE THYROXINE) 1.72 ng/dL (0.78-2.19)
[2018-11-15 19:39] LABS: THYROID STIMULATING HORMONE 0.17 uIU/mL (0.47-4.68)
[2018-11-15] MEDS ORDERED: INSULIN REG, HUMAN 100 UNIT/ML 3 ML VIAL (PYX) ONE (20:59)
[2018-11-15] MEDS ORDERED: INSULIN NPH (ISOPHANE), HUMAN 100 UNIT/ML 3 ML SUBCUT SCH (22:00)
[2018-11-15] MEDS: LABETALOL HCL 200 MG TABLET PO SCH (22:07)
[2018-11-16] MEDS: LABETALOL HCL 200 MG TABLET PO SCH (06:52)
[2018-11-16] MEDS ORDERED: INSULIN NPH (ISOPHANE), HUMAN 100 UNIT/ML 3 ML SUBCUT SCH (08:00)
[2018-11-16] MEDS ORDERED: INSULIN REG, HUMAN 100 UNIT/ML 3 ML VIAL (PYX) SUBCUT SCH ×2 (08:00→16:00)
--- NOTE | 2018-11-16 08:19 | PDOC DISCHARGE SUMMARY ---
General - Admit/Disc Date/PCP Admission Date/Primary Care Provider: 11/15/18 00:12 ROBERT MITCHELL Discharge Date: 11/16/18 - Discharge Diagnosis (1) Uncontrolled type 2 diabetes mellitus Is this a current diagnosis for this admission?: Yes (2) Uncontrolled stage 2 hypertension Is this a current diagnosis for this admission?: Yes (3) and [id number] diabetes mellitus in first trimester Is this a current diagnosis for this admission?: Yes (4) Morbid (severe) obesity due to excess calories Is this a current diagnosis for this admission?: Yes - Additional Information Resuscitation Status: Full Code Discharge Diet: Cardiac, Diabetic Discharge Activity: Activity As Tolerated Prescriptions: Insulin Regular, Human [Humulin R (Reg) Insulin 100 unit/mL] 0 - 12 unit SUBCUT ASDIR PRN #1000 unit PRN Reason: Labetalol HCl [Normodyne 200 mg Tablet] 200 mg PO Q8 #90 tablet Metformin HCl 1,000 mg PO BID #60 tablet NPH, Human Insulin Isophane [Humulin N (NPH) Insulin 100 unit/mL] 15 unit SUBCUT BIDACBS #1000 unit Vit/Dha [ Multi + Dha Capsule] 1 cap PO DAILY #90 capsule Syringe and Needle,Insulin,1Ml [Insulin Syringe 1 mL] 1 syr MC ASDIR PRN #100 syringe PRN Reason: Home Medications: Insulin Regular, Human [Humulin R (Reg) Insulin 100 unit/mL] 0 - 12 unit SUBCUT ASDIR PRN #1000 unit 11/16/18 Labetalol HCl [Normodyne 200 mg Tablet] 200 mg PO Q8 #90 tablet 11/16/18 Metformin HCl 1,000 mg PO BID #60 tablet 11/16/18 NPH, Human Insulin Isophane [Humulin N (NPH) Insulin 100 unit/mL] 15 unit SUBCUT BIDACBS #1000 unit 11/16/18 Vit/Dha [ Multi + Dha Capsule] 1 cap PO DAILY #90 capsule 11/16/18 Syringe and Needle,Insulin,1Ml [Insulin Syringe 1 mL] 1 syr MC ASDIR PRN #100 syringe 11/16/18 History of Present Illness Patient complains of: Elevated blood sugar History of Present Illness: AAMIR GUSMAN is a 33 year old female known to my practice who was recently diagnosed with intrauterine . In view of her her medication for diabetes mellitus and hypertension were changed accordingly. Patient reported to the ED due to elevated blood glucose level on home monitor. She claimed that her prescribed Humalog will cost about $600.00 out of pocket and she could not afford it. Her pharmacy is in the process of resubmitting Novolog insulin and she is not aware how much it will cost her due to her current prescription coverage limitation. She reported that her home accuchek reading remain persistently above 300 mg/dl. She denied any significant nausea, vomiting, abdominal pain, or abnormal vaginal bleeding. No fever or chills. No urinary frequency, dysuria or flank pain. No chest pain or difficulty with her breathing. Her initial evaluation in the ED was significant for hyperglycemia, elevated blood pressure and hyponatremia. Her morbidities include diabetes mellitus type 2, hypertension, and morbid obesity. She was advised hospitalization on observation bed for further evaluation and management. Hospital Course Hospital Course: Patient was managed with IV fluid support and insulin therapy with improvement in her blood glucose level. She remain on oral Metformin with NPH insulin and humalog insulin sliding scale management. Her Labetalol dosage was adjusted for blood pressure control.. She was seen in consultation by Dr. Beck, OB service, while on admission for her intrauterine . She has been instructed to follow up upon discharge. She will follow up with me in the office as instructed upon discharge. Physical Exam Vital Signs: Temp Pulse Resp BP Pulse Ox 98.4 F 72 18 168/96 H 100 11/16/18 04:48 11/16/18 04:48 11/16/18 04:48 11/16/18 04:48 11/16/18 04:48 Intake & Output 11/15/18 11/16/18 11/17/18 06:59 06:59 06:59 Intake Total 2000 1550 Output Total 600 Balance 2000 950 Weight 149.232 kg 150.7 kg General appearance: PRESENT: no acute distress, morbidly obese Head exam: PRESENT: atraumatic, normocephalic Eye exam: PRESENT: conjunctiva pink, EOMI, PERRLA. ABSENT: scleral icterus Ear exam: PRESENT: normal external ear exam Mouth exam: PRESENT: moist Respiratory exam: PRESENT: clear to auscultation [place] Cardiovascular exam: PRESENT: RRR. ABSENT: diastolic murmur, rubs, systolic murmur Vascular exam: ABSENT: pallor GI/Abdominal exam: PRESENT: normal bowel sounds, soft. ABSENT: distended, guarding, mass, organolmegaly, rebound, tenderness Extremities exam: ABSENT: pedal edema Neurological exam: PRESENT: alert, awake, oriented to person, oriented to place, oriented to time, oriented to situation, CN II-XII grossly intact. ABSENT: motor sensory deficit Psychiatric exam: PRESENT: appropriate affect, normal mood. ABSENT: homicidal ideation, suicidal ideation Skin exam: PRESENT: dry, warm Results Laboratory Results: 11/14/18 22:12 11/15/18 09:06 11/15/18 11/15/18 11/15/18 09:06 09:06 09:06 Sodium 135.4 L Potassium 4.4 Chloride 101 Carbon Dioxide 24 Anion Gap 10 BUN 9 Creatinine 0.64 Est GFR ( Amer) > 60 Est GFR (Non-Af Amer) > 60 Glucose 232 H Uric Acid 2.7 Calcium 9.6 AST 12 L ALT 19 TSH 0.17 L Free T4 1.72 Impressions: Obstetrics Ultrasound 11/15/18 00:00 IMPRESSION: LIVING INTRAUTERINE . EGA 7 weeks 0 days Trimester of : First - 0 to 13 weeks. Qualifiers - * PATIENT BEING DISCHARGED WITH ANY OF THE FOLLOWING DIAGNOSIS: No Plan Discharge Plan: D/C home today. Follow up with Dr. Beck and myself as instructed upon discharge.
[2018-11-16 08:35] VITALS: BP 152/94
[2018-11-16] MEDS ORDERED: INSULIN REG, HUMAN 100 UNIT/ML 3 ML VIAL (PYX) SUBCUT PRN (19:16)
== END 2018-11-16 09:20 | disposition home or self-care (01) ==
LOC: ER 19:55 → EH 11-15 00:12 → 2S 11-15 01:48
PROVIDERS: ADMIT Internal Medicine Geriatric Medicine; ATTEND Internal Medicine Geriatric Medicine
DX: O24.111 Pre-existing type 2 diabetes mellitus, in pregnancy, first trimester (principal); E11.65 Type 2 diabetes mellitus with hyperglycemia; O16.1 Unspecified maternal hypertension, first trimester; O99.211 Obesity complicating pregnancy, first trimester; E66.01 Morbid (severe) obesity due to excess calories; O26.891 Other specified pregnancy related conditions, first trimester; E87.1 Hypo-osmolality and hyponatremia; Z3A.01 Less than 8 weeks gestation of pregnancy; Z79.84 Long term (current) use of oral hypoglycemic drugs; Z79.899 Other long term (current) drug therapy; Z82.49 Family history of ischemic heart disease and other diseases of the circulatory system
CPT/HCPCS: 99284; 96360; 96361; 36415 ×2; 84439; 82962 ×2; 84450; 84460; 84443; 84550; 85025; 81025; 80048; 80053; 81001; 83036; 76801; J1815 ×5; J7120 ×2; J3490; G0378

== ENCOUNTER 2018-12-22 09:39 | Day surgery (SDC) | payer OTHER ==
[2018-12-22] MEDS ORDERED: SUCCINYLCHOLINE CHLORIDE INJ 200 MG/10 ML VIAL ONE (10:28)
[2018-12-22 10:38] LABS: HEMOGLOBIN 11.3 g/dL (12.0-15.5); MEAN CORPUSCULAR HEMOGLOBIN 26.1 pg (27.0-33.4); MEAN CORPUSCULAR HGB CONC 34.4 g/dL (32.0-36.0); MEAN CORPUSCULAR VOLUME 76 fl (80-97); PLATELET COUNT 256 10^3/uL (150-450); RED BLOOD COUNT 4.35 10^6/uL (3.72-5.28); RED CELL DISTRIBUTION WIDTH 16.2 % (11.5-14.0); WHITE BLOOD COUNT 4.7 10^3/uL (4.0-10.5)
[2018-12-22] MEDS ORDERED: MIDAZOLAM 2 MG/2 ML INJ ONE (11:30)
[2018-12-22] MEDS ORDERED: FENTANYL CITRATE INJ/PF 100 MCG/2 ML AMPUL ONE (11:30)
[2018-12-22] MEDS ORDERED: PROPOFOL INJ 200 MG/20 ML VIAL IV ONE (11:31)
[2018-12-22] MEDS ORDERED: ONDANSETRON HCL INJ/PF 4 MG/2 ML SDV ONE (11:31)
[2018-12-22] MEDS ORDERED: DEXAMETHASONE SOD PHOSPHATE INJ 4 MG/1 ML VIAL ONE (11:31)
[2018-12-22] MEDS ORDERED: FENTANYL CITRATE INJ/PF 100 MCG/2 ML AMPUL IV PRN ×3 (12:30)
[2018-12-22] MEDS ORDERED: DIPHENHYDRAMINE HCL 50 MG/ML VIAL IV PRN (12:30)
[2018-12-22] MEDS ORDERED: MEPERIDINE HCL/PF INJ 25 MG/1 ML DISP.SYRIN IV PRN (12:30)
[2018-12-22] MEDS ORDERED: MORPHINE SULFATE 10 MG/ML INJ IV PRN (12:30)
[2018-12-22] MEDS ORDERED: PROMETHAZINE HCL INJ 25 MG/1 ML VIAL IV PRN ×2 (12:30)
[2018-12-22] MEDS ORDERED: ONDANSETRON HCL INJ/PF 4 MG/2 ML SDV IV PRN (12:30)
[2018-12-22] MEDS ORDERED: KETOROLAC TROMETHAMINE INJ/PF 30 MG/1 ML SDV ONE (13:03)
[2018-12-22] MEDS ORDERED: RINGERS SOLUTION,LACTATED 1,000 ML IV PRN (13:22)
[2018-12-22] MEDS ORDERED: OXYCODONE-ACETAMINOPHEN 5-325 MG TABLET PO PRN ×2 (13:23→13:24)
[2018-12-22] MEDS ORDERED: IBUPROFEN 800 MG TABLET PO PRN (13:23)
[2018-12-22] MEDS ORDERED: MORPHINE SULFATE 10 MG/ML INJ IM PRN (13:24)
[2018-12-22] MEDS ORDERED: KETOROLAC TROMETHAMINE INJ/PF 30 MG/1 ML SDV IV ONE (14:00)
[2018-12-22 14:51] VITALS: BP 116/79
--- NOTE | 2018-12-22 17:04 | OPERATIVE REPORT E ---
Operative Report NAME: AAMIR GUSMAN : 1985 AGE: 33Y DATE OF SURGERY: 12/22/2018 ROOM: PREOPERATIVE DIAGNOSIS: MISSED AB AT 9 WEEKS. POSTOPERATIVE DIAGNOSIS: MISSED AB AT 9 WEEKS. OPERATION: SUCTION DILATION AND CURETTAGE. SURGEON: TOYA JOLLY M.D. ANESTHESIA STAFF: Dr. Walters ANESTHESIA: General. FINDINGS: Uterus sounded to 14 cm. Copious amounts of products of conception obtained. COMPLICATIONS: None. ESTIMATED BLOOD LOSS: 200 mL. SPECIMENS REMOVED: Products of conception. PROCEDURE: The patient was taken to the operating room, prepared and draped in normal sterile fashion in dorsal lithotomy position under sterile condition. In and out catheterization was performed for approximately 300 mL of clear urine. The sterile speculum was placed in the vagina. The cervix was located and grasped on the anterior lip with a single-tooth tenaculum. The uterus was then sounded to approximately 14 cm. The cervix was dilated to accommodate an 8 mm curved curette, which was introduced using the suction device, and suction and curettage was performed until no further tissue was obtained. A sharp curettage revealed small amount of decidua that was removed at that point, and another pass of the suction curettage was performed to ensure that products of conception were completely evacuated from the uterus. At the end of the procedure, the cervix was reinspected and found to be hemostatic and closing. The instruments were removed. Sponge, lap, and needle counts were correct x2, and the patient was taken to recovery in stable condition. DICTATING PHYSICIAN: TOYA JOLLY M.D. [id number] Y#: [id number] ID: [id number] JOB#: [id number] ACCT: [id number] cc:TOYA JOLLY M.D. >
== END 2018-12-22 14:35 | disposition home or self-care (01) ==
LOC: OROUT 09:39
PROVIDERS: ATTEND Obstetrics & Gynecology
DX: O02.1 Missed abortion (principal); E11.9 Type 2 diabetes mellitus without complications; E66.9 Obesity, unspecified; I10 Essential (primary) hypertension; Z87.891 Personal history of nicotine dependence
CPT/HCPCS: 1965; 36415; 82962; 85027; 88305; J0330; J1100; J1885; J2250; J2405; J2704; J3010

== ENCOUNTER 2019-04-20 08:44 | Emergency (ER) | payer OTHER ==
[2019-04-20] MEDS ORDERED: KETOROLAC TROMETHAMINE 60 MG/2 ML SDV IM ONE (10:44)
--- NOTE | 2019-04-20 11:28 | ER Document Report ---
HPI - HPI Time Seen by Provider: 04/20/19 09:31 Pain Level: 3 Notes: Patient is a 33-year-old female presenting to the emergency department chief complaint of left knee pain. Patient reports she was walking at work when she slipped on a wet spot on the floor and fell forward onto her left knee. She reports pain with any movement of the knee. She denies striking her head, denies any loss of consciousness. - CONSTITUTIONAL Constitutional: DENIES: Fever, Chills - EENT EENT: DENIES: Sore Throat, Ear Pain, Eye problems - NEURO Neurology: DENIES: Headache, Weakness, Vision blurred, Dizzinesss / Vertigo - REPRODUCTIVE Reproductive: DENIES: : - MUSCULOSKELETAL Musculoskeletal: REPORTS: Extremity pain - L knee Past Medical History - General Information source: Patient - Social History Smoking Status: Current Every Day Smoker Frequency of alcohol use: None Drug Abuse: None Family History: Reviewed & Not Pertinent, Hypertension Patient has suicidal ideation: No Patient has homicidal ideation: No - Past Medical History Cardiac Medical History: Reports: Hx Hypertension Denies: Hx Coronary Artery Disease, Hx Heart Attack Pulmonary Medical History: Denies: Hx Asthma, Hx Bronchitis, Hx COPD, Hx Pneumonia Neurological Medical History: Denies: Hx Cerebrovascular Accident, Hx Seizures Endocrine Medical History: Reports: Hx Diabetes Mellitus Type 2 Renal/ Medical History: Denies: Hx Peritoneal Dialysis Musculoskeletal Medical History: Denies Hx Arthritis - Immunizations Hx Diphtheria, Pertussis, Tetanus Vaccination: No Vertical Provider Document - CONSTITUTIONAL Notes: PHYSICAL EXAMINATION: GENERAL: Well-appearing, well-nourished and in no acute distress. HEAD: Atraumatic, normocephalic. EYES: Pupils equal round extraocular movements intact, conjunctiva are normal. ENT: Nares patent NECK: Normal range of motion LUNGS: No respiratory distress Musculoskeletal: Limited range of motion to left knee, strong popliteal pulse, mild swelling noted without erythema or edema. NEUROLOGICAL: Normal speech. PSYCH: Normal mood, normal affect. SKIN: Warm, Dry, normal turgor, no rashes or lesions noted. - INFECTION CONTROL TRAVEL OUTSIDE OF THE [place] IN LAST 30 DAYS: No Course - Re-evaluation Re-evalutation: Knee X-Ray 04/20/19 10:40 IMPRESSION: Mild degenerative joint disease with no acute finding. X-ray was negative for any fracture dislocation. Unable to rule out internal knee injury. Will place patient in an John Paul wrap due to her size and will have her use crutches. Patient given information for orthopedics. Patient will use ice, elevate, compression and ibuprofen at home. We will follow-up with Ortho if not improving over the next several days. - Vital Signs Vital signs: Temp Pulse Resp BP Pulse Ox 97.9 F 92 18 146/85 H 99 04/20/19 08:58 04/20/19 08:58 04/20/19 08:58 04/20/19 08:58 04/20/19 08:58 Procedures - Immobilization Left knee Pre-Proc Neuro Vasc Exam: Normal Immobilizer type: John Paul wrap, Crutches Performed by: PCT Post-Proc Neuro Vasc Exam: Normal Alignment checked and good: Yes Discharge - Discharge Clinical Impression: Left knee injury Qualifiers: Encounter type: initial encounter Qualified Code(s): S89.92XA - Unspecified injury of left lower leg, initial encounter Condition: Stable Disposition: HOME, SELF-CARE Instructions: Use of Crutches ([facility]), Ice & Elevation ([facility]), Sprained Knee ([facility]) Additional Instructions: The x-ray of your left knee does not show any acute abnormalities such as fractures or dislocations. This does not necessarily rule out an internal knee injury such as a torn ligament or tendon. Please use the John Paul wrap for compression, use crutches stay off of the left knee as much as possible. Take ibuprofen 600 mg every 6 hours. Use the pain medication prescribed for severe pain only. If the pain does not resolve or improve over the next several days please follow-up with orthopedics a contact has been provided for you below. Prescriptions: Hydrocodone Bit/Acetaminophen [Hydrocodon-Acetaminophen 5-325] 1 each PO Q4H #10 tablet Forms: Return to Work Referrals: MASSIEL BARRERA DO [ACTIVE STAFF] - Follow up as needed
--- NOTE | 2019-04-20 11:40 | RADIOLOGY REPORT (SQ) ---
EXAM DESCRIPTION: KNEE LEFT 4 VIEW COMPLETED DATE/TIME: 04/20/2019 11:32 am REASON FOR STUDY: knee pain s/p fall COMPARISON: None. NUMBER OF VIEWS: Four views. TECHNIQUE: AP, lateral, and both oblique radiographic images acquired of the left knee. LIMITATIONS: None. FINDINGS: MINERALIZATION: Normal. BONES: No acute fracture or dislocation. No worrisome bone lesions. JOINT: Marginal osteophytes are present laterally with slight narrowing of the joint space. Small po sterior patellar and trochlear osteophytes are present. There is no significant joint effusion. SOFT TISSUES: No soft tissue swelling. No radio-opaque foreign body. OTHER: No other significant finding. IMPRESSION: Mild degenerative joint disease with no acute finding. TECHNICAL DOCUMENTATION: JOB ID: [id number] [employer]- All Rights Reserved Reading location - IP/workstation name: [email or web address]
[2019-04-20 12:34] VITALS: BP 139/82
== END 2019-04-20 12:34 | disposition home or self-care (01) ==
LOC: ER 08:44
DX: S89.92XA Unspecified injury of left lower leg, initial encounter (principal); W01.0XXA Fall on same level from slipping, tripping and stumbling without subsequent striking against object, initial encounter; Y93.89 Activity, other specified; Y99.0 Civilian activity done for income or pay; M17.12 Unilateral primary osteoarthritis, left knee; F17.200 Nicotine dependence, unspecified, uncomplicated; I10 Essential (primary) hypertension; E11.9 Type 2 diabetes mellitus without complications
CPT/HCPCS: 73564; J1885; 96372; 99283

== ENCOUNTER 2019-09-06 06:49 | Emergency (ER) | payer OTHER ==
[2019-09-06] MEDS ORDERED: DEXAMETHASONE SOD PHOS INJ 10 MG/1 ML VIAL IM ONE (09:56)
[2019-09-06] MEDS ORDERED: KETOROLAC TROMETHAMINE 60 MG/2 ML SDV IM ONE (09:56)
[2019-09-06] MEDS ORDERED: CYCLOBENZAPRINE HCL 10 MG TABLET PO ONE (10:11)
--- NOTE | 2019-09-06 11:44 | ER Document Report ---
ED Neck/Back Problem - General Chief Complaint: Back Pain Stated Complaint: POSSIBLE PULLED MUSCLE IN BACK Time Seen by Provider: 09/06/19 09:44 Primary Care Provider: ROBERT MITCHELL MD [Primary Care Provider] - Follow up in 3-5 days Notes: 34-year-old female presents with left lower back pain that started upon awakening. Patient states she has associated numbness that runs down her left leg. Patient denies any injury or trauma. Patient denies any difficulty with urinating or defecating. Patient different denies any saddle anesthesia. Patient denies any IV drug use. Patient states she works on her feet all day and this makes it worse. TRAVEL OUTSIDE OF THE [place] IN LAST 30 DAYS: No - Related Data Allergies/Adverse Reactions: No Known Allergies Allergy (Verified 04/20/19 08:46) Home Medications: bp med. novalin N and R insulins Past Medical History - Social History Smoking Status: Current Every Day Smoker Family History: Reviewed & Not Pertinent, Hypertension Patient has suicidal ideation: No Patient has homicidal ideation: No - Past Medical History Cardiac Medical History: Reports: Hx Hypertension Denies: Hx Coronary Artery Disease, Hx Heart Attack Pulmonary Medical History: Denies: Hx Asthma, Hx Bronchitis, Hx COPD, Hx Pneumonia Neurological Medical History: Denies: Hx Cerebrovascular Accident, Hx Seizures Endocrine Medical History: Reports: Hx Diabetes Mellitus Type 2 Renal/ Medical History: Denies: Hx Peritoneal Dialysis Musculoskeletal Medical History: Denies Hx Arthritis - Immunizations Hx Diphtheria, Pertussis, Tetanus Vaccination: No Review of Systems - Review of Systems Notes: Constitutional: Negative for fever. HENT: Negative for sore throat. Eyes: Negative for visual changes. Cardiovascular: Negative for chest pain. Respiratory: Negative for shortness of breath. Gastrointestinal: Negative for abdominal pain, vomiting or diarrhea. Genitourinary: Negative for dysuria. Musculoskeletal: Positive for back pain. Skin: Negative for rash. Neurological: Negative for headaches, weakness or numbness. 10 point ROS negative except as marked above and in HPI. Physical Exam - Vital signs Vitals: Temp Pulse Resp BP Pulse Ox 97.7 F 110 H 16 155/110 H 100 09/06/19 06:57 09/06/19 06:57 09/06/19 06:57 09/06/19 06:57 09/06/19 06:57 - Notes Notes: GENERAL: Well-appearing, well-nourished and uncomfortable. HEAD: Atraumatic, normocephalic. EYES: Extraocular movements intact, sclera anicteric, conjunctiva are normal. ENT: TMs normal, nares patent, oropharynx clear without exudates. Moist mucous membranes. NECK: Normal range of motion, supple without lymphadenopathy or JVD. ABDOMEN: Soft, nontender. No guarding, no rebound. No masses appreciated. EXTREMITIES: Normal range of motion, no pitting or edema. No clubbing or cyano sis. BACK: No spinal tenderness. Tenderness to the left lower paraspinal muscles. NEUROLOGICAL: Cranial nerves II through XII grossly intact. Normal speech, normal gait. Lower extremity strength equal bilaterally. PSYCH: Normal mood, normal affect. SKIN: Warm, Dry, normal turgor, no rashes or lesions noted. Course - Re-evaluation Re-evalutation: 09/06/19 34-year-old female presents with left low back that started upon awakening. Patient has numbness down the left leg. Patient denies any difficulty with urinating/defecating or saddle anesthesia. Patient denies any history of IV drug abuse. Patient is nontoxic, well-appearing. Patient is tender over left lower lumbar paraspinal muscles. No spinal tenderness. No fu rther labs or imaging warranted based off of exam. Patient given shot of Toradol and Decadron. And Flexeril. 09/06/19 11:43 Pt is feeling better. Patient resting comfortably. Patient given prescription for ibuprofen and prednisone. Patient also given prescription for Nexium to prevent stomach ulcers. Patient given prescription for Flexeril with sedation warnings. Patient given close follow-up with PCP. Strict return precautions given. Patient voices understanding and agrees with plan of care. - Vital Signs Vital signs: Temp Pulse Resp BP Pulse Ox 97.7 F 110 H 16 155/110 H 100 09/06/19 06:57 09/06/19 06:57 09/06/19 06:57 09/06/19 06:57 09/06/19 06:57 Discharge - Discharge Clinical Impression: Sciatica Qualifiers: Laterality: left Qualified Code(s): M54.32 - Sciatica, left side Strain of lumbar paraspinal muscle Qualifiers: Encounter type: initial encounter Qualified Code(s): S39.012A - Strain of muscle, fascia and tendon of lower back, initial encounter Condition: Stable Disposition: HOME, SELF-CARE Instructions: Low Back Pain ([facility]), Muscle Strain ([facility]), Warm Packs ([facility]) Additional Instructions: Please take medications as prescribed. Please take Nexium while taking ibuprofen and steroids to prevent a stomach ulcer. Please take Flexeril as prescribed. Do not drink or drive while taking Flexeril as it may make you drowsy. Please follow-up with your primary care doctor in 3 to 5 days. Return immediately to ER if you start having any worsening symptoms, including numbness to your private area, difficulty with urinating/defecating, worsening pain, fever, chest pain, shortness of breath, nausea/vomiting, or any other symptoms that are concerning to you. Prescriptions: Prednisone [Deltasone] 20 mg PO BID #14 tablet Cyclobenzaprine HCl [Flexeril 10 mg Tablet] 10 mg PO TIDP PRN #15 tab PRN Reason: Ibuprofen [Motrin 800 mg Tablet] 800 mg PO Q8H PRN #30 tab PRN Reason: Esomeprazole Mag Trihydrate [Nexium] 40 mg PO DAILY #14 capsule.dr Forms: Return to Work Referrals: ROBERT MITCHELL MD [Primary Care Provider] - Follow up in 3-5 days
[2019-09-06 12:26] VITALS: BP 142/99
== END 2019-09-06 12:25 | disposition home or self-care (01) ==
LOC: ER 06:49
DX: S39.012A Strain of muscle, fascia and tendon of lower back, initial encounter (principal); M54.32 Sciatica, left side; R20.0 Anesthesia of skin; X58.XXXA Exposure to other specified factors, initial encounter; F17.200 Nicotine dependence, unspecified, uncomplicated; E11.9 Type 2 diabetes mellitus without complications; I10 Essential (primary) hypertension
CPT/HCPCS: 99283; 96372; 36415; 84703; J1885; J1100

== ENCOUNTER 2020-06-04 10:33 | Inpatient (IN) | payer OTHER ==
--- NOTE | 2020-06-04 12:12 | ER Document Report ---
ED Medical Screen (RME) - General Chief Complaint: Skin Sore(s) Stated Complaint: LEFT PINKY TOE PAIN,LEG PAIN Primary Care Provider: ROBERT MITCHELL MD [Primary Care Provider] - Follow up as needed Notes: 35-year-old female with past medical history of hypertension, diabetes, neuropathy presenting today with left foot pain for approximately 3 weeks. 3 weeks ago she put a hot pack on her left foot due to her feet being swollen and a blister developed. The blister slowly progressed and spread. She has not seen her primary care provider. She does not know what her blood sugars have been. She cannot feel the bottom portion of her foot. She takes NovoLog and amlodipine. She denies says that she has had some chills. No fever. No additional symptoms reported at this time. Physical exam: Left foot-left second toe is necrotic, necrosis also on the left little toe. She has no sensation along the plantar lateral aspect of her foot, no sensation along the big toe. She has palpable dorsalis pedis pulse. Associated erythema and warmth distal to the toes. I have greeted and performed a rapid initial assessment of this patient. A comprehesive ED assessment and evaluation of this patient, analysis of test results and completion of the medical decision-making process will be conducted by additional ED providers. TRAVEL OUTSIDE OF THE [place] IN LAST 30 DAYS: No - Related Data Allergies/Adverse Reactions: No Known Allergies Allergy (Verified 06/04/20 11:43) Home Medications: metformin. vitamin b 12. acidophilus. amlodipine. iron. irbesartan. hctz. novolin. humulin Past Medical History - Social History Chew tobacco use (# tins/day): No Frequency of alcohol use: None Drug Abuse: None - Past Medical History Cardiac Medical History: Reports: Hx Hypertension Denies: Hx Coronary Artery Disease, Hx Heart Attack Pulmonary Medical History: Denies: Hx Asthma, Hx Bronchitis, Hx COPD, Hx Pneumonia Neurological Medical History: Denies: Hx Cerebrovascular Accident, Hx Seizures Endocrine Medical History: Reports: Hx Diabetes Mellitus Type 2 Renal/ Medical History: Denies: Hx Peritoneal Dialysis Musculoskeltal Medical History: Denies Hx Arthritis - Immunizations Hx Diphtheria, Pertussis, Tetanus Vaccination: No Physical Exam - Vital signs Vitals: Temp Pulse Resp BP Pulse Ox 99.3 F 128 H 19 164/101 H 100 06/04/20 10:38 06/04/20 10:38 06/04/20 10:38 06/04/20 10:38 06/04/20 10:38 Course - Vital Signs Vital signs: Temp Pulse Resp BP Pulse Ox 99.3 F 128 H 19 164/101 H 100 06/04/20 11:43 06/04/20 10:38 06/04/20 10:38 06/04/20 10:38 06/04/20 10:38 Doctor's Discharge - Discharge Referrals: ROBERT MITCHELL MD [Primary Care Provider] - Follow up as needed
[2020-06-04] MEDS ORDERED: VANCOMYCIN HCL INJ 1000 MG VIAL IV ONE (12:14)
[2020-06-04] MEDS ORDERED: PIPERACILLIN/TAZOBACTAM 3.375 GM VIAL IV ONE (12:16)
[2020-06-04 12:38] LABS: ABSOLUTE BASOPHILS # (AUTO) 0.1 10^3/uL (0.0-0.2); ABSOLUTE LYMPHOCYTES (AUTO) 1.3 10^3/uL (0.5-4.7); ABSOLUTE MONOCYTES (AUTO) 0.8 10^3/uL (0.1-1.4); ABSOLUTE NEUT (AUTO) 9.5 10^3/uL (1.7-8.2); BASOPHILS % (AUTO) 0.6 % (0-2); EOSINOPHILS % (AUTO) 0.2 % (0-6); HEMATOCRIT 34.5 % (36.0-47.0); HEMOGLOBIN 12.1 g/dL (12.0-15.5); LYMPHOCYTES % (AUTO) 11.2 % (13-45); MEAN CORPUSCULAR HEMOGLOBIN 25.6 pg (27.0-33.4); MEAN CORPUSCULAR HGB CONC 35.2 g/dL (32.0-36.0); MEAN CORPUSCULAR VOLUME 73 fl (80-97); MONOCYTES % (AUTO) 6.8 % (3-13); PLATELET COUNT 281 10^3/uL (150-450); RED BLOOD COUNT 4.73 10^6/uL (3.72-5.28); SEGMENTED NEUTROPHILS % (AUTO) 81.2 % (42-78); TOTAL CELLS COUNTED % (AUTO) 100 %; WHITE BLOOD COUNT 11.7 10^3/uL (4.0-10.5)
--- NOTE | 2020-06-04 12:51 | RADIOLOGY REPORT (SQ) ---
EXAM DESCRIPTION: FOOT LEFT COMPLETE IMAGES COMPLETED DATE/TIME: 06/04/2020 12:42 pm REASON FOR STUDY: necrosis COMPARISON: 07/23/2017 NUMBER OF VIEWS: Three views. TECHNIQUE: AP, lateral and oblique radiographic images acquired of the left foot. LIMITATIONS: None. FINDINGS: MINERALIZATION: Normal. BONES: No acute fracture or dislocation. No worrisome bone lesions. JOINTS: No effusions. SOFT TISSUES: No soft tissue swelling. No foreign body. OTHER: No other significant finding. IMPRESSION: Negative exam. No conventional radiographic evidence of osteomyelitis. TECHNICAL DOCUMENTATION: JOB ID: [id number] [employer]- All Rights Reserved Reading location - IP/workstation name: [email or web address]
[2020-06-04 13:05] LABS: ALBUMIN 3.8 g/dL (3.5-5.0); ALKALINE PHOSPHATASE 78 U/L (38-126); ANION GAP 9 (5-19); ASPARTATE AMINO TRANSFERASE 15 U/L (14-36); BILIRUBIN,DIRECT 0.4 mg/dL (0.0-0.4); BILIRUBIN,TOTAL 0.7 mg/dL (0.2-1.3); BLOOD UREA NITROGEN 7 mg/dL (7-20); CALCIUM 9.2 mg/dL (8.4-10.2); CARBON DIOXIDE 27 mmol/L (22-30); CHLORIDE 97 mmol/L (98-107); GLUCOSE 205 mg/dL (75-110); POTASSIUM 3.9 mmol/L (3.6-5.0); TOTAL PROTEIN 7.8 g/dL (6.3-8.2)
--- NOTE | 2020-06-04 14:22 | ER Document Report ---
ED General - General Chief Complaint: Skin Sore(s) Stated Complaint: LEFT PINKY TOE PAIN,LEG PAIN Time Seen by Provider: 06/04/20 14:09 Primary Care Provider: ROBERT MITCHELL MD [Primary Care Provider] - Follow up as needed Mode of Arrival: Ambulatory Information source: Patient Notes: Patient is a 35-year-old -[place] female with history of diabetes. Com es in today for left foot infection. According to the patient several weeks ago had a hot pack on her foot. Blister formed as a result of the hot pack. Instead of healing the blister formed an ulceration particularly over the small toe. Now patient is having redness and swelling of the left foot also having skin ulceration of the left small digit and there is also some blackening of the skin of the second toe. She reports chills. No nausea or vomiting TRAVEL OUTSIDE OF THE [place] IN LAST 30 DAYS: No - Related Data Allergies/Adverse Reactions: No Known Allergies Allergy (Verified 06/04/20 11:43) Home Medications: metformin. vitamin b 12. acidophilus. amlodipine. iron. irbesartan. hctz. novolin. humulin Past Medical History - General Information source: Patient - Social History Smoking Status: Current Every Day Smoker Chew tobacco use (# tins/day): No Frequency of alcohol use: None Drug Abuse: None Family History: Reviewed & Not Pertinent, Hypertension Patient has homicidal ideation: No - Past Medical History Cardiac Medical History: Reports: Hx Hypertension Denies: Hx Coronary Artery Disease, Hx Heart Attack Pulmonary Medical History: Denies: Hx Asthma, Hx Bronchitis, Hx COPD, Hx Pneumonia Neurological Medical History: Denies: Hx Cerebrovascular Accident, Hx Seizures Endocrine Medical History: Reports: Hx Diabetes Mellitus Type 2 Renal/ Medical History: Denies: Hx Peritoneal Dialysis Musculoskeletal Medical History: Denies Hx Arthritis Past Surgical History: Reports: Hx Gynecologic Surgery - D&C 2019 - Immunizations Hx Diphtheria, Pertussis, Tetanus Vaccination: No Review of Systems - Review of Systems Notes: Constitutional: No fevers. +chills. EENT: No eye redness. No eye pain. No ear pain. No sore throat. Cardiovascular: No chest pain. No palpitations. Respiratory: No cough. No shortness of breath. No respiratory distress. Gastrointestinal: No abdominal pain. No nausea, vomiting, or diarrhea. Genitourinary: Atraumatic. No lesions. No pain. No discharge. Musculoskeletal: Positive left foot infection Skin: Positive ulceration left foot Lymphatic: No swollen lymph nodes. Neurologic: No headache. No syncope. Psychiatric: No suicidal or homicidal ideation. Physical Exam - Vital signs Vitals: Temp Pulse Resp BP Pulse Ox 99.3 F 128 H 19 164/101 H 100 06/04/20 10:38 06/04/20 10:38 06/04/20 10:38 06/04/20 10:38 06/04/20 10:38 - Notes Notes: General: Well-developed, well-nourished. In no acute distress. Non-toxic appearing. Cardiac: Well-perfused. Tachycardia .no murmurs, rubs, or gallops. Pulmonary: No respiratory distress. No cyanosis. Bilateral lung anthony are clear to auscultation. Abdominal: Non-distended. Non-rigid. Bowels sounds are present in all four quadrants. No guarding or rebound. HEENT: Head is atraumatic. Conjunctivae not reddened. No tearing. PERRL. EOMI. Orbits atraumatic. No periorbital swelling or erythema. Oropharynx is without erythema, swelling, or exudates. Neck: Supple. No adenopathy. No meningismus. Dermatologic: Warm with good turgor. No rash. Atraumatic. Chest: Atraumatic. No chest wall tenderness to palpation. Musculoskeletal: Left foot examined. Left small toe is ulcerated over the dorsal surface. There is formation of some black eschar. Left second toe is also turning black over the middle phalanx Genitourinary: Examination deferred Neurologic: No gross neurologic deficits. Psychiatric: Normal mood. Course - Re-evaluation Re-evalutation: 06/04/20 15:55 Multiple phone calls placed to Dr. Mitchell cell phone as well as his office. No response from either end. 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 06/04/20 17:06 I was finally able to get through to Dr. Mitchell. He agrees to admit her. - Vital Signs Vital signs: Temp Pulse Resp BP Pulse Ox 99.1 F 128 H 23 H 164/101 H 98 06/04/20 15:25 06/04/20 10:38 06/04/20 16:00 06/04/20 10:38 06/04/20 16:00 - Laboratory Result Diagrams: 06/04/20 12:25 06/04/20 12:25 Laboratory results interpreted by me: 06/04/20 06/04/20 12:25 12:25 WBC 11.7 H Hct 34.5 L MCV 73 L MCH 25.6 L RDW 17.0 H Lymph % (Auto) 11.2 L Absolute Neuts (auto) 9.5 H Seg Neutrophils % 81.2 H Sodium 132.6 L Chloride 97 L Glucose 205 H Discharge - Discharge Clinical Impression: Cellulitis of foot Diabetic ulcer of toe Qualifiers: Diabetes mellitus type: type 2 Laterality: left Non-pressure ulcer stage: with other severity Qualified Code(s): E11.621 - Type 2 diabetes mellitus with foot ulcer; L97.528 - Non-pressure chronic ulcer of other part of left foot with other specified severity Condition: Good Disposition: ADMITTED INPATIENT Admitting Provider: Pavithra Unit Admitted: Medical Floor
[2020-06-04] MEDS ORDERED: NORMAL SALINE 1000 ML 1,000 ML IV ONE (14:26)
[2020-06-04] MEDS ORDERED: ACETAMINOPHEN 325 MG TABLET PO ONE (14:47)
[2020-06-04 18:04] LABS: APPEARANCE,URINE CLEAR; BILIRUBIN,URINE NEGATIVE (NEGATIVE); COLOR,URINE YELLOW; GLUCOSE, URINE 150 mg/dL (NEGATIVE); KETONES,URINE NEGATIVE (NEGATIVE); LEUKOCYTE ESTERASE,URINE NEGATIVE (NEGATIVE); NITRITE,URINE NEGATIVE (NEGATIVE); PROTEIN,URINE NEGATIVE (NEGATIVE); URINE SPECIFIC GRAVITY 1.014
[2020-06-04] MEDS ORDERED: DEXTROSE 40% GEL 15 GM TUBE PO PRN ×2 (18:42)
[2020-06-04] MEDS ORDERED: GLUCAGON,HUMAN RECOMB 1 MG INJ IM PRN (18:42)
[2020-06-04] MEDS ORDERED: DEXTROSE 50%-WATER 25 GM/50 ML DISP.SYRIN IV PRN ×2 (18:42)
[2020-06-04] MEDS ORDERED: VANCOMYCIN HCL 0 MG in DEXTROSE 5%-WATER 250 ML IV NR (19:00)
[2020-06-04] MEDS: ENOXAPARIN SODIUM INJ 40 MG/0.4 ML DISP.SYRIN SUBCUT SCH (19:44)
[2020-06-04] MEDS: NORMAL SALINE 1000 ML 1,000 ML IV PRN (19:45)
[2020-06-04] MEDS: INSULIN LISPRO 100 UNIT/ML 3 ML VIAL SUBCUT SCH (22:30)
[2020-06-04] MEDS: PIPERACILLIN SODIUM/TAZOBACTAM 3.375 GM in NORMAL SALINE 100 ML IV SCH (22:41)
[2020-06-05] MEDS: PIPERACILLIN SODIUM/TAZOBACTAM 3.375 GM in NORMAL SALINE 100 ML IV SCH ×4 (02:44→21:35)
[2020-06-05] MEDS: PANTOPRAZOLE SODIUM 40 MG TABLET.DR PO SCH (05:47)
[2020-06-05] MEDS ORDERED: VANCOMYCIN HCL 2,000 MG in DEXTROSE 5%-WATER 500 ML IV SCH (06:00)
[2020-06-05 06:53] LABS: ABSOLUTE EOSINOPHILS # (AUTO) 0.1 10^3/uL (0.0-0.6); ABSOLUTE LYMPHOCYTES (AUTO) 1.8 10^3/uL (0.5-4.7); ABSOLUTE MONOCYTES (AUTO) 0.9 10^3/uL (0.1-1.4); ABSOLUTE NEUT (AUTO) 5.7 10^3/uL (1.7-8.2); BASOPHILS % (AUTO) 0.5 % (0-2); EOSINOPHILS % (AUTO) 1.1 % (0-6); HEMATOCRIT 32.1 % (36.0-47.0); LYMPHOCYTES % (AUTO) 20.8 % (13-45); MEAN CORPUSCULAR HEMOGLOBIN 25.1 pg (27.0-33.4); MEAN CORPUSCULAR HGB CONC 34.2 g/dL (32.0-36.0); MEAN CORPUSCULAR VOLUME 73 fl (80-97); MONOCYTES % (AUTO) 10.6 % (3-13); PLATELET COUNT 271 10^3/uL (150-450); RED BLOOD COUNT 4.38 10^6/uL (3.72-5.28); RED CELL DISTRIBUTION WIDTH 16.9 % (11.5-14.0); TOTAL CELLS COUNTED % (AUTO) 100 %; WHITE BLOOD COUNT 8.6 10^3/uL (4.0-10.5)
[2020-06-05 07:17] LABS: ALBUMIN 3.2 g/dL (3.5-5.0); ALKALINE PHOSPHATASE 71 U/L (38-126); ANION GAP 8 (5-19); ASPARTATE AMINO TRANSFERASE 14 U/L (14-36); BILIRUBIN,DIRECT 0.4 mg/dL (0.0-0.4); BILIRUBIN,TOTAL 0.8 mg/dL (0.2-1.3); BLOOD UREA NITROGEN 7 mg/dL (7-20); CALCIUM 8.6 mg/dL (8.4-10.2); CARBON DIOXIDE 25 mmol/L (22-30); CHLORIDE 103 mmol/L (98-107); CHOLESTEROL 138.83 mg/dL (0-200); GLUCOSE 248 mg/dL (75-110); TOTAL PROTEIN 6.8 g/dL (6.3-8.2); TRIGLYCERIDES 149 mg/dL (<150)
[2020-06-05 07:28] LABS: DIRECT LDL 81 mg/dL (<100)
[2020-06-05] MEDS ORDERED: INSULIN NPH HUMAN ISOPHANE SUBCUT SCH (08:00)
--- NOTE | 2020-06-05 08:30 | EKG REPORT ---
SEVERITY:- NORMAL ECG - SINUS RHYTHM : Confirmed by: Marleni Chilel MD 05-Jun-2020 08:29:59
[2020-06-05] MEDS: LACTOBACILLUS ACIDOPHILUS 250 MG TAB PO SCH ×2 (09:33→17:09)
[2020-06-05] MEDS: AMLODIPINE BESYLATE 10 MG TABLET PO SCH (09:33)
[2020-06-05] MEDS: HYDROCHLOROTHIAZIDE 12.5 MG TABLET PO SCH (09:33)
[2020-06-05] MEDS: TRAMADOL HCL 50 MG TABLET PO PRN (09:33)
[2020-06-05] MEDS: LOSARTAN POTASSIUM 50 MG TABLET PO SCH (09:34)
[2020-06-05] MEDS: FERROUS SULFATE 325 MG TABLET PO SCH (09:34)
[2020-06-05] MEDS: METFORMIN HCL 500 MG TABLET PO SCH ×2 (09:34→17:09)
[2020-06-05] MEDS: INSULIN NPH (ISOPHANE), HUMAN 100 UNIT/ML 3 ML SUBCUT SCH ×2 (09:35→17:10)
[2020-06-05] MEDS: ENOXAPARIN SODIUM INJ 40 MG/0.4 ML DISP.SYRIN SUBCUT SCH (09:36)
[2020-06-05] MEDS: INSULIN LISPRO 100 UNIT/ML 3 ML VIAL SUBCUT SCH ×4 (09:36→22:21)
[2020-06-05] MEDS ORDERED: [UNRECOGNIZED DRUG - OTHER] PO SCH (10:00)
[2020-06-05] MEDS ORDERED: (PENDING PHARMACY ID) (Metformin Hcl [Metformin Hcl] 1,000 MG) PO SCH (10:00)
[2020-06-05] MEDS ORDERED: (PENDING PHARMACY ID) (Cyanocobalamin (Vitamin B-12) [Vitamin B-12] 50 MCG) PO SCH (10:00)
[2020-06-05] MEDS ORDERED: (PENDING PHARMACY ID) (Irbesartan [Irbesartan] 300 MG) PO SCH (10:00)
--- NOTE | 2020-06-05 13:55 | PDOC H&P ---
History of Present Illness Admission Date/PCP: 06/04/20 18:12 [facility] Patient complains of: Left foot pain, swelling, sore History of Present Illness: AAMIR GUSMAN is a 35 year old female patient known to my practice who presented to the ED with several weeks of left foot and leg pain. Patient reported usage of warm compress on her left foot for pain. She subsequently developed blister lesion on her pinky toe that eventually developed into a sore. Patient reported development of warmth and swelling over her left foot. There is development of black discoloration over her second toe with increasing pain that prompted her coming to the ED. She denied any definite fever or elevated temperature but admitted to intermittent chills. She has history of diabetes mellitus type 2 and admitted to poor glycemic control. Her medication and dietary compliance remain a concern. She denied any chest pain, abdominal pain, nausea, or vomiting. Her morbidities are as listed below. She was advised hospitalization for further evaluation and management. Past Medical History Cardiac Medical History: Reports: Hypertension Denies: Coronary Artery Disease, Myocardial Infarction Pulmonary Medical History: Denies: Asthma, Bronchitis, Chronic Obstructive Pulmonary Disease (COPD), Pneumonia Neurological Medical History: Denies: Seizures Endocrine Medical History: Reports: Diabetes Mellitus Type 2 Musculoskeltal Medical History: Denies: Arthritis Psychiatric Medical History: Denies: Depression Hematology: Denies: Anemia Social History Smoking Status: Current Every Day Smoker Cigarettes Packs Per Day: 0.5 Electronic Cigarette use?: No Frequency of Alcohol Use: None Hx Recreational Drug Use: No Drugs: None Hx Prescription Drug Abuse: No - Advance Directive Resuscitation Status: Full Code Family History Family History: Reviewed & Not Pertinent, Hypertension Parental Family History Reviewed: Yes Children Family History Reviewed: Yes Sibling(s) Family History Reviewed.: Yes Medication/Allergy Home Medications: Metformin HCl 1,000 mg PO BID #60 tablet 11/16/18 Amlodipine Besylate [Norvasc 10 mg Tablet] 10 mg PO DAILY 06/04/20 Cyanocobalamin (Vitamin B-12) [Vitamin B-12] 50 mcg PO DAILY 06/04/20 Ferrous Sulfate [Feosol 325 mg Tablet] 325 mg PO DAILY 06/04/20 Hydrochlorothiazide [Hydrodiuril 12.5 mg Tablet] 12.5 mg PO DAILY 06/04/20 Insulin NPH Human Isophane [Novolin N Flexpen] 30 units SQ QPM 06/04/20 Insulin NPH Human Isophane [Novolin N Flexpen] 50 units SQ QAM 06/04/20 Insulin Regular, Human [Novolin R] 0 units SQ .PERSLIDINGSCALE MDD AT LUNCH Irbesartan 300 mg PO DAILY 06/04/20 Lactobacillus Acidophilus/Fos [Acidophilus Probiotic Tablet] 1 tab PO BID 06/04/20 Allergies/Adverse Reactions: No Known Allergies Allergy (Verified 06/04/20 11:43) Review of Systems Constitutional: PRESENT: chills. ABSENT: fever(s), headache(s) Eyes: ABSENT: visual disturbances Ears: ABSENT: hearing changes Nose, Mouth, and Throat: ABSENT: headache(s), vertigo Cardiovascular: ABSENT: chest pain, dyspnea on exertion, edema, orthropnea, palpitations Respiratory: ABSENT: cough, dyspnea, hemoptysis, sputum Gastrointestinal: ABSENT: abdominal pain, constipation, diarrhea, hematemesis, hematochezia, nausea, vomiting Genitourinary: ABSENT: difficulty urinating, dysuria, hematuria Musculoskeletal: PRESENT: other - foot swelling with pain and open wound on left 5th and blister lesion on 2nd toe. ABSENT: joint swelling Integumentary: ABSENT: rash, wounds Neurological: ABSENT: abnormal gait, abnormal speech, confusion, dizziness, focal weakness, syncope Psychiatric: ABSENT: anxiety, depression, homidical ideation, suicidal ideation Endocrine: ABSENT: cold intolerance, heat intolerance, menstrual abnormalities, polydipsia, polyuria Hematologic/Lymphatic: ABSENT: easy bleeding, easy bruising, lymphadenopathy Allergic/Immunologic: ABSENT: seasonal rhinorrhea Physical Exam Vital Signs: Temp Pulse Resp BP Pulse Ox 99.3 F 84 16 125/83 100 06/04/20 22:27 06/05/20 02:00 06/04/20 22:27 06/04/20 22:27 06/04/20 22:27 Intake & Output 06/04/20 06/05/20 06/06/20 06:59 06:59 06:59 Intake Total 1000 Balance 1000 Weight 161 kg General appearance: PRESENT: no acute distress, morbidly obese Head exam: PRESENT: atraumatic, normocephalic Eye exam: PRESENT: conjunctiva pink, EOMI, PERRLA. ABSENT: scleral icterus Ear exam: PRESENT: normal external ear exam Mouth exam: PRESENT: moist, tongue midline Neck exam: PRESENT: full ROM. ABSENT: carotid bruit, JVD, lymphadenopathy, thyromegaly Respiratory exam: PRESENT: clear to auscultation [place] Cardiovascular exam: PRESENT: RRR, +S1, +S2. ABSENT: diastolic murmur, rubs, systolic murmur Pulses: PRESENT: normal dorsalis pedis pul, +2 pedal pulses bilateral Vascular exam: PRESENT: normal capillary refill. ABSENT: pallor GI/Abdominal exam: PRESENT: normal bowel sounds, soft. ABSENT: distended, guarding, mass, organolmegaly, rebound, tenderness Rectal exam: PRESENT: deferred Extremities exam: PRESENT: tenderness - left foot wth sweling, open wound on left 5th toe and around 2nd toe.. ABSENT: pedal edema Musculoskeletal exam: PRESENT: ambulatory Neurological exam: PRESENT: alert, awake, oriented to person, oriented to place, oriented to time, oriented to situation, CN II-XII grossly intact. ABSENT: motor sensory deficit Psychiatric exam: PRESENT: appropriate affect, normal mood. ABSENT: homicidal ideation, suicidal ideation Skin exam: PRESENT: dry, intact, warm. ABSENT: cyanosis, rash Results Laboratory Results: 06/05/20 06:04 06/05/20 06:04 06/04/20 06/04/20 06/04/20 12:25 12:25 12:25 WBC 11.7 H RBC 4.73 Hgb 12.1 Hct 34.5 L MCV 73 L MCH 25.6 L MCHC 35.2 RDW 17.0 H Plt Count 281 Seg Neutrophils % 81.2 H Sodium 132.6 L Potassium 3.9 Chloride 97 L Carbon Dioxide 27 Anion Gap 9 BUN 7 Creatinine 0.59 Est GFR ( Amer) > 60 Glucose 205 H Lactic Acid 1.9 Calcium 9.2 Total Bilirubin 0.7 AST 15 Alkaline Phosphatase 78 Total Protein 7.8 Albumin 3.8 Triglycerides Cholesterol LDL Cholesterol Direct VLDL Cholesterol HDL Cholesterol Urine Color Urine Appearance Urine pH Ur Specific [place] Urine Protein Urine Glucose (UA) Urine Ketones Urine Blood Urine Nitrite Ur Leukocyte Esterase Urine WBC (Auto) Urine RBC (Auto) 06/04/20 06/05/20 06/05/20 17:30 06:04 06:04 WBC 8.6 RBC 4.38 Hgb 11.0 L Hct 32.1 L MCV 73 L MCH 25.1 L MCHC 34.2 RDW 16.9 H Plt Count 271 Seg Neutrophils % 67.0 Sodium 135.6 L Potassium 4.0 Chloride 103 Carbon Dioxide 25 Anion Gap 8 BUN 7 Creatinine 0.66 Est GFR ( Amer) > 60 Glucose 248 H Lactic Acid Calcium 8.6 Total Bilirubin 0.8 AST 14 Alkaline Phosphatase 71 Total Protein 6.8 Albumin 3.2 L Triglycerides 149 Cholesterol 138.83 LDL Cholesterol Direct 81 VLDL Cholesterol 30.0 HDL Cholesterol 30 L Urine Color YELLOW Urine Appearance CLEAR Urine pH 6.0 Ur Specific [place] 1.014 Urine Protein NEGATIVE Urine Glucose (UA) 150 H Urine Ketones NEGATIVE Urine Blood NEGATIVE Urine Nitrite NEGATIVE Ur Leukocyte Esterase NEGATIVE Urine WBC (Auto) 0 Urine RBC (Auto) 1 Impressions: Foot X-Ray 06/04/20 12:12 IMPRESSION: Negative exam. No conventional radiographic evidence of osteomyelitis. Assessment & Plan - Diagnosis (1) Cellulitis of foot Is this a current diagnosis for this admission?: Yes Plan: See admitting attending physician orders for details. (2) Diabetic ulcer of toe Qualifiers: Diabetes mellitus type: type 2 Laterality: left Non-pressure ulcer stage: with other severity Qualified Code(s): E11.621 - Type 2 diabetes mellitus with foot ulcer; L97.528 - Non-pressure chronic ulcer of other part of left foot with other specified severity Is this a current diagnosis for this admission?: Yes Plan: See admitting attending physician orders for details. (3) Uncontrolled stage 2 hypertension Is this a current diagnosis for this admission?: Yes Plan: See admitting attending physician orders for details. (4) Uncontrolled type 2 diabetes mellitus Qualifiers: Glycemic state: with hyperglycemia Qualified Code(s): E11.65 - Type 2 diabetes mellitus with hyperglycemia Is this a current diagnosis for this admission?: Yes Plan: See admitting attending physician orders for details. (5) Morbid (severe) obesity due to excess calories Is this a current diagnosis for this admission?: Yes Plan: See admitting attending physician orders for details. - Time Time Spent: 50 to 70 Minutes Medications reviewed and adjusted accordingly: Yes Anticipated Discharge Disposition: Home with Home Health Anticipated Discharge Timeframe: within 72 hours - Inpatient Certification Based on my medical assessment, after consideration of the patient's comorbid ities, presenting symptoms, or acuity I expect that the services needed warrant INPATIENT care.: Yes I certify that my determination is in accordance with my understanding of Medicare's requirements for reasonable and necessary INPATIENT services [42 CFR 412.3e].: Yes Medical Necessity: Significant Comorbidiites Make Outpatient Treatment Too Risky, Need Close Monitoring Due to Risk of Patient Decompensation, Need For IV Fluids, Need For Continuous Telemetry Monitoring, Need for IV Antibiotics, Need for Surgery, Risk of Complication if Not Cared For in Hospital, Risk of Diagnosis Which Will Require Inpatient Eval/Care/Monitoring Post Hospital Care: D/C [employer] Documentation - Plan Summary Plan Summary: See admitting attending physician orders for details.
[2020-06-05] MEDS: VANCOMYCIN HCL 1,500 MG in DEXTROSE 5%-WATER 250 ML IV SCH ×2 (13:58→22:22)
--- NOTE | 2020-06-05 14:11 | PDOC PROGRESS REPORT ---
Subjective Progress Note for:: 06/05/20 Subjective:: Patient reported pain in her left foot. Awaiting surgical evaluation. No chest pain, difficulty with breathing, nausea, vomiting, or abdominal pain. She demonstrate persistent hypoglycemia so far since admission. Reason For Visit: DIABETIC ULCER OF TOE/CELLULITIS Physical Exam Vital Signs: Temp Pulse Resp BP Pulse Ox 99.3 F 84 16 125/83 100 06/04/20 22:27 06/05/20 02:00 06/04/20 22:27 06/04/20 22:27 06/04/20 22:27 Intake & Output 06/04/20 06/05/20 06/06/20 06:59 06:59 06:59 Intake Total 1000 Balance 1000 Weight 161 kg General appearance: PRESENT: mild distress - due to left foot pain, morbidly obese Head exam: PRESENT: atraumatic, normocephalic Eye exam: PRESENT: conjunctiva pink. ABSENT: scleral icterus Mouth exam: PRESENT: moist Respiratory exam: PRESENT: clear to auscultation [place] Cardiovascular exam: PRESENT: RRR, +S1, +S2. ABSENT: diastolic murmur, rubs, systolic murmur Vascular exam: ABSENT: pallor GI/Abdominal exam: PRESENT: normal bowel sounds, soft. ABSENT: distended, guarding, mass, organolmegaly, rebound, tenderness Extremities exam: ABSENT: pedal edema Neurological exam: PRESENT: alert, awake, oriented to person, oriented to place, oriented to time, oriented to situation, CN II-XII grossly intact. ABSENT: motor sensory deficit Psychiatric exam: PRESENT: appropriate affect, normal mood. ABSENT: homicidal ideation, suicidal ideation Skin exam: PRESENT: dry, warm. ABSENT: intact - there is open wound involving left 5th toe and to certain degree left 2nd toe. Some improvement in her left foot swelling is probably due to elevated position. Results Laboratory Results: 06/05/20 06:04 06/05/20 06:04 06/04/20 06/04/20 06/04/20 12:25 12:25 12:25 WBC 11.7 H RBC 4.73 Hgb 12.1 Hct 34.5 L MCV 73 L MCH 25.6 L MCHC 35.2 RDW 17.0 H Plt Count 281 Seg Neutrophils % 81.2 H Sodium 132.6 L Potassium 3.9 Chloride 97 L Carbon Dioxide 27 Anion Gap 9 BUN 7 Creatinine 0.59 Est GFR ( Amer) > 60 Glucose 205 H Lactic Acid 1.9 Calcium 9.2 Total Bilirubin 0.7 AST 15 Alkaline Phosphatase 78 Total Protein 7.8 Albumin 3.8 Triglycerides Cholesterol LDL Cholesterol Direct VLDL Cholesterol HDL Cholesterol Urine Color Urine Appearance Urine pH Ur Specific [place] Urine Protein Urine Glucose (UA) Urine Ketones Urine Blood Urine Nitrite Ur Leukocyte Esterase Urine WBC (Auto) Urine RBC (Auto) 06/04/20 06/05/20 06/05/20 17:30 06:04 06:04 WBC 8.6 RBC 4.38 Hgb 11.0 L Hct 32.1 L MCV 73 L MCH 25.1 L MCHC 34.2 RDW 16.9 H Plt Count 271 Seg Neutrophils % 67.0 Sodium 135.6 L Potassium 4.0 Chloride 103 Carbon Dioxide 25 Anion Gap 8 BUN 7 Creatinine 0.66 Est GFR ( Amer) > 60 Glucose 248 H Lactic Acid Calcium 8.6 Total Bilirubin 0.8 AST 14 Alkaline Phosphatase 71 Total Protein 6.8 Albumin 3.2 L Triglycerides 149 Cholesterol 138.83 LDL Cholesterol Direct 81 VLDL Cholesterol 30.0 HDL Cholesterol 30 L Urine Color YELLOW Urine Appearance CLEAR Urine pH 6.0 Ur Specific [place] 1.014 Urine Protein NEGATIVE Urine Glucose (UA) 150 H Urine Ketones NEGATIVE Urine Blood NEGATIVE Urine Nitrite NEGATIVE Ur Leukocyte Esterase NEGATIVE Urine WBC (Auto) 0 Urine RBC (Auto) 1 Impressions: Foot X-Ray 06/04/20 12:12 IMPRESSION: Negative exam. No conventional radiographic evidence of osteomyelitis. Assessment & Plan - Diagnosis (1) Cellulitis of foot Is this a current diagnosis for this admission?: Yes Plan: Continue current antibiotic coverage with Zosyn and Vancomycin ads per pharmacy protocol. (2) Diabetic ulcer of toe Qualifiers: Diabetes mellitus type: type 2 Laterality: left Non-pressure ulcer stage: with other severity Qualified Code(s): E11.621 - Type 2 diabetes mellitus with foot ulcer; L97.528 - Non-pressure chronic ulcer of other part of left foot with other specified severity Is this a current diagnosis for this admission?: Yes Plan: Follow up with surgical consult request for evaluation of her left foot wound and consideration of debridement as necessary. Continue daily wet to dry dressing. (3) Uncontrolled stage 2 hypertension Is this a current diagnosis for this admission?: Yes Plan: There is fair improvement in her blood pressure control. Continue to monitor renal indices as needed. (4) Uncontrolled type 2 diabetes mellitus Qualifiers: Glycemic state: with hyperglycemia Qualified Code(s): E11.65 - Type 2 diabetes mellitus with hyperglycemia Is this a current diagnosis for this admission?: Yes Plan: Continue current sliding scale coverage. I will restart her preadmission diabetic medication since her oral intake is better. (5) Morbid (severe) obesity due to excess calories Is this a current diagnosis for this admission?: Yes Plan: Maintain on dietary choice and calorie restrictions. - Time Time Spent with patient: 25-34 minutes Level of Care: IMCU Medications reviewed and adjusted accordingly: Yes Anticipated discharge: Home with Homehealth Anticipated DC Timeframe: within 72 hours - Inpatient Certification Based on my medical assessment, after consideration of the patient's comorbidities, presenting symptoms, or acuity I expect that the services needed warrant INPATIENT care.: Yes I certify that my determination is in accordance with my understanding of Medicare's requirements for reasonable and necessary INPATIENT services [42 CFR 412.3e].: Yes Medical Necessity: Significant Comorbidiites Make Outpatient Treatment Too Risky , Need Close Monitoring Due to Risk of Patient Decompensation, Need For IV Fluids, Need For Continuous Telemetry Monitoring, Need for IV Antibiotics, Need for Surgery, Risk of Complication if Not Cared For in Hospital, Risk of Diagnosis Which Will Require Inpatient Eval/Care/Monitoring Post 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 Repeat request for surgical consultation for her left foot wound evaluation and further management as necessary.
[2020-06-05] MEDS ORDERED: GLUCAGON,HUMAN RECOMB 1 MG INJ SUBCUT PRN (15:15)
[2020-06-05] MEDS ORDERED: DEXTROSE 40% GEL 15 GM TUBE PO PRN ×2 (15:15)
[2020-06-05] MEDS ORDERED: DEXTROSE 50%-WATER 25 GM/50 ML DISP.SYRIN IV PRN ×2 (15:15)
[2020-06-05] MEDS: NORMAL SALINE 1000 ML 1,000 ML IV PRN (17:07)
--- NOTE | 2020-06-05 17:56 | PDOC CONSULTATION ---
Consultation Consult Date: 06/05/20 Provider Consulted: TAWNY GODWIN Consult reason:: Left foot infection. History of Present Illness Admission Date/PCP: 06/04/20 18:12 [facility] Patient complains of: Left foot pain History of Present Illness: AAMIR GUSMAN is a 35 year old female with history of diabetes and hypertension presenting with a several week history of a blister on her left foot fifth toe which turned black with some associated pain. Patient developed similar finding on the second toe more recently. She has no history of peripheral vascular dise ase and she denies any claudication symptoms. No history of atrial fib Past Medical History Cardiac Medical History: Reports: Hypertension Denies: Coronary Artery Disease, Myocardial Infarction Pulmonary Medical History: Denies: Asthma, Bronchitis, Chronic Obstructive Pulmonary Disease (COPD), Pneumonia Neurological Medical History: Denies: Seizures Endocrine Medical History: Reports: Diabetes Mellitus Type 2 Musculoskeltal Medical History: Denies: Arthritis Psychiatric Medical History: Denies: Depression Hematology: Denies: Anemia Social History Smoking Status: Current Every Day Smoker Cigarettes Packs Per Day: 0.5 Electronic Cigarette use?: No Frequency of Alcohol Use: None Hx Recreational Drug Use: No Drugs: None Hx Prescription Drug Abuse: No - Advance Directive Resuscitation Status: Full Code Family History Family History: Reviewed & Not Pertinent, Hypertension Parental Family History Reviewed: Yes - High blood pressure and diabetes Children Family History Reviewed: Yes Sibling(s) Family History Reviewed.: Yes Medication/Allergy Home Medications: Metformin HCl 1,000 mg PO BID #60 tablet 11/16/18 Amlodipine Besylate [Norvasc 10 mg Tablet] 10 mg PO DAILY 06/04/20 Cyanocobalamin (Vitamin B-12) [Vitamin B-12] 50 mcg PO DAILY 06/04/20 Ferrous Sulfate [Feosol 325 mg Tablet] 325 mg PO DAILY 06/04/20 Hydrochlorothiazide [Hydrodiuril 12.5 mg Tablet] 12.5 mg PO DAILY 06/04/20 Insulin NPH Human Isophane [Novolin N Flexpen] 30 units SQ QPM 06/04/20 Insulin NPH Human Isophane [Novolin N Flexpen] 50 units SQ QAM 06/04/20 Insulin Regular, Human [Novolin R] 0 units SQ .PERSLIDINGSCALE MDD AT LUNCH 06/04/20 Irbesartan 300 mg PO DAILY 06/04/20 Lactobacillus Acidophilus/Fos [Acidophilus Probiotic Tablet] 1 tab PO BID 06/04/20 Allergies/Adverse Reactions: No Known Allergies Allergy (Verified 06/04/20 11:43) Physical Exam Vital Signs: Temp Pulse Resp BP Pulse Ox 98.6 F 81 17 120/74 100 06/05/20 11:33 06/05/20 11:33 06/05/20 11:33 06/05/20 11:33 06/05/20 11:33 Intake & Output 06/04/20 06/05/20 06/06/20 06:59 06:59 06:59 Intake Total 1000 972 Balance 1000 972 Weight 161 kg General appearance: PRESENT: no acute distress, cooperative Eye exam: PRESENT: conjunctiva pink Respiratory exam: PRESENT: clear to auscultation [place] Cardiovascular exam: PRESENT: RRR Vascular exam: PRESENT: other - 2+ palpable dorsalis pedis pulses bilaterally GI/Abdominal exam: PRESENT: other - Soft, nondistended, nontender to palpation. Extremities exam: PRESENT: other - No finger splinter hemorrhages. Right foot appears normal with no ulcerations and no lesions. Left forefoot has diffuse swelling with black discoloration of the fifth toe with purulent discharge and surrounding erythema. The left second toe has a black discoloration but no discharge. No crepitus. Neurological exam: PRESENT: alert, awake Psychiatric exam: PRESENT: appropriate affect Skin exam: PRESENT: warm Results Laboratory Results: 06/05/20 06:04 06/05/20 06:04 06/04/20 06/05/20 06/05/20 17:30 06:04 06:04 WBC 8.6 RBC 4.38 Hgb 11.0 L Hct 32.1 L MCV 73 L MCH 25.1 L MCHC 34.2 RDW 16.9 H Plt Count 271 Seg Neutrophils % 67.0 Sodium 135.6 L Potassium 4.0 Chloride 103 Carbon Dioxide 25 Anion Gap 8 BUN 7 Creatinine 0.66 Est GFR ( Amer) > 60 Glucose 248 H Calcium 8.6 Total Bilirubin 0.8 AST 14 Alkaline Phosphatase 71 Total Protein 6.8 Albumin 3.2 L Triglycerides 149 Cholesterol 138.83 LDL Cholesterol Direct 81 VLDL Cholesterol 30.0 HDL Cholesterol 30 L Urine Color YELLOW Urine Appearance CLEAR Urine pH 6.0 Ur Specific [place] 1.014 Urine Protein NEGATIVE Urine Glucose (UA) 150 H Urine Ketones NEGATIVE Urine Blood NEGATIVE Urine Nitrite NEGATIVE Ur Leukocyte Esterase NEGATIVE Urine WBC (Auto) 0 Urine RBC (Auto) 1 Impressions: Foot X-Ray 06/04/20 12:12 IMPRESSION: Negative exam. No conventional radiographic evidence of osteomyelitis. Assessment & Plan - Diagnosis (1) Diabetic infection of left foot Is this a current diagnosis for this admission?: Yes Plan: Of the left fifth toe. Will need 5th toe amputation. It has the appearance of wet gangrene. Patient with black discoloration of the left second toe without purulent discharge.Patient will benefit from amputation of this toe as well at the same time. Patient has excellent pulses of her left foot. Recommend cardiology consultation for echocardiography to rule out a embolic focus. Plan left fifth and second toe amputation tomorrow. We will make the patient n.p.o. post midnight. I have discussed with the patient the risk and benefits of surgery including risk of poor wound healing, need for additional surgery, need for additional surgery, infection, bleeding, cardiopulmonary risks. Patient understands and agrees to proceed.
[2020-06-05] MEDS ORDERED: INSULIN NPH HUMAN ISOPHANE 30 UNIT SUBCUT SCH (18:00)
--- NOTE | 2020-06-05 21:50 | XCELERA REPORT ---
[address] [address] Transthoracic Echocardiogram Report Name: AAMIR GUSMAN Age: 35 yrs Gender: Female : 1985 Patient Status: Inpatient Patient Location: [address] [place] [address] Study Date: 06/05/2020 08:01 PM Height: 71 in Weight: 354 lb BSA: 2.7 m2 Procedure: A two-dimensional transthoracic echocardiogram with color flow and Doppler was performed. Study Quality: Good. Reason For Study: Left foot cellulitis with toe gangrene, DMT2, HTN History: MURMUR / HTN / PRE_OP( Indication Discussed with ). Ordering Physician: ROBERT MITCHELL Performed By: Karis Ojeda Interpretation Summary The left ventricle is normal in size. There is mild concentric left ventricular hypertrophy. Left ventricular systolic function is normal. LV EF is 65% Doppler measurements suggest normal left ventricular diastolic function The left ventricular wall motion is normal. There is no thrombus. No ASD,VSD,or PFO seen. The right ventricle is normal in size and function. The right atrium is normal. The left atrial size is normal. There is no evidence of mitral valve prolapse. There is no vegetation seen on the mitral valve. There is no mitral valve stenosis. There is a trace amount of mitral regurgitation There is no aortic valvular vegetation. There is no aortic valve stenosis There is no LVOT obstruction. No aortic regurgitation is present. There is no tricuspid stenosis. There is a trace amount of tricuspid regurgitation Tricuspid regurgitation jet envelope not well defined to measure RV systolic pressure accurately. There is no pulmonic valvular stenosis. There is no pulmonic valvular regurgitation. The aortic root is normal size. The inferior vena cava appeared normal and decreased > 50% with respiration (RAP 5-10 mmHg) There is no pericardial effusion. MMode/2D Measurements & Calculations RVDd: 3.2 cm LVIDd: 5.1 cm FS: 38.6 % Ao root diam: 3.4 cm IVSd: 1.2 cm LVIDs: 3.1 cm EDV(Teich): 124.0 ml Ao root area: 9.0 cm2 LVPWd: 1.2 cm ESV(Teich): 38.9 ml LA dimension: 2.9 cm EF(Teich): 68.6 % Doppler Measurements & Calculations MV E max yusuf: MV P1/2t max yusuf: Ao V2 max: LV V1 max P.3 cm/sec 145.4 cm/sec 182.6 cm/sec 7.1 mmHg MV A max yusuf: MV P1/2t: 78.4 msec Ao max PG: LV V1 max: 93.8 cm/sec MVA(P1/2t): 2.8 cm2 13.3 mmHg 132.8 cm/sec MV E/A: 1.4 MV dec slope: 543.2 cm/sec2 MV dec time: 0.23 sec PA V2 max: MV P1/2t-pr_phl: 89.8 cm/sec 78.4 msec PA max P.2 mmHg Left Ventricle The left ventricle is normal in size. There is mild concentric left ventricular hypertrophy. Left ventricular systolic function is normal. LV EF is 65%. Doppler measurements suggest normal left ventricular diastolic function. The left ventricular wall motion is normal. There is no thrombus. No ASD,VSD,or PFO seen. Right Ventricle The right ventricle is normal in size and function. Atria The right atrium is normal. The left atrial size is normal. Mitral Valve There is no evidence of mitral valve prolapse. There is no vegetation seen on the mitral valve. There is no mitral valve stenosis. There is a trace amount of mitral regurgitation. Aortic Valve There is no aortic valvular vegetation. There is no aortic valve stenosis. There is no LVOT obstruction. No aortic regurgitation is present. Tricuspid Valve There is no tricuspid stenosis. There is a trace amount of tricuspid regurgitation. Tricuspid regurgitation jet envelope not well defined to measure RV systolic pressure accurately. Pulmonic Valve There is no pulmonic valvular stenosis. There is no pulmonic valvular regurgitation. Great Vessels The aortic root is normal size. The inferior vena cava appeared normal and decreased > 50% with respiration (RAP 5-10 mmHg). Effusions There is no pericardial effusion. : ROBERT MITCHELL, Marleni
--- NOTE | 2020-06-05 21:53 | PDOC CONSULTATION ---
Consultation-Blank Consultation: CARDIOLOGY consultation by Dr. Marleni Chilel on 06/05/2020. Patient seen at 9:15 PM. 60 minutes spent on this patient more than 50% of time spent in direct patient care. REASON FOR CONSULTATION: Preoperative cardiac risk assessment for left fifth toe amputation. CONSULT REQUESTING PHYSICIAN: Dr. Arshad. HISTORY of PRESENT ILLNESS: Patient is a 35-year-old Afro-Finnish female with known history of hypertension, diabetes mellitus type 2 insulin-dependent admitted with a few weeks history of blister in the left fifth toe which is turned into a diabetic ulcer with gangrene and infection. Hence patient's for amputation of the left fifth toe. She also has early changes of diabetic infection/gangrene of the left second toe. The patient denies any chest pain or discomfort. There is no shortness of breath. Although she is a smoker there is no history of COPD. There is no history of sleep apnea. There is no history of asthma. The patient denies any symptoms suggestive of cold infection. She has no cough or upper respiratory tract infection. She has no history of dyspnea on exertion. She is obese but has no history of sleep apnea. She has no chest pain discomfort. There is no prior history of [place] angina coronary artery disease. She has no history of atrial fibrillation or other cardiac arrhythmias. There is no history of congestive heart failure. No history of palpitations or syncope. Past Medical History Cardiac Medical History: Reports: Hypertension Denies: Coronary Artery Disease, Myocardial Infarction Pulmonary Medical History: Denies: Asthma, Bronchitis, Chronic Obstructive Pulmonary Disease (COPD), Pneumonia Neurological Medical History: Denies: Seizures Endocrine Medical History: Reports: Diabetes Mellitus Type 2 Musculoskeltal Medical History: Denies: Arthritis Psychiatric Medical History: Denies: Depression Hematology: Denies: Anemia Social History Smoking Status: Current Every Day Smoker Cigarettes Packs Per Day: 0.5 Electronic Cigarette use?: No Frequency of Alcohol Use: None Hx Recreational Drug Use: No Drugs: None Hx Prescription Drug Abuse: No - Advance Directive Resuscitation Status: Full Code. The patient's mother is her surrogate healthcare decision maker. Family History Family History: Reviewed & Not Pertinent, Hypertension Parental Family History Reviewed: Yes Children Family History Reviewed: Yes Sibling(s) Family History Reviewed.: Yes Medication/Allergy Home Medications: Metformin HCl 1,000 mg PO BID #60 tablet 11/16/18 Amlodipine Besylate [Norvasc 10 mg Tablet] 10 mg PO DAILY 06/04/20 Cyanocobalamin (Vitamin B-12) [Vitamin B-12] 50 mcg PO DAILY 06/04/20 Ferrous Sulfate [Feosol 325 mg Tablet] 325 mg PO DAILY 06/04/20 Hydrochlorothiazide [Hydrodiuril 12.5 mg Tablet] 12.5 mg PO DAILY 06/04/20 Insulin NPH Human Isophane [Novolin N Flexpen] 30 units SQ QPM 06/04/20 Insulin NPH Human Isophane [Novolin N Flexpen] 50 units SQ QAM 06/04/20 Insulin Regular, Human [Novolin R] 0 units SQ .PERSLIDINGSCALE MDD AT LUNCH 06/04/20 Irbesartan 300 mg PO DAILY 06/04/20 Lactobacillus Acidophilus/Fos [Acidophilus Probiotic Tablet] 1 tab PO BID 06/04/20 Allergies/Adverse Reactions: No Known Allergies Allergy (Verified 06/04/20 11:43) Current Medications Generic Name Dose Route Start Last Admin Trade Name Delia PRN Reason Stop Dose Admin Amlodipine Besylate 10 mg 06/05/20 10:00 06/05/20 09:33 Norvasc 10 Mg Tablet PO 07/05/20 09:59 10 mg DAILY ADY Administration Dextrose 12.5 gm 06/04/20 18:42 Dextrose Inj 50% Syringe (25 Gm/50 Ml) IV 07/04/20 18:41 PRN PRN FOR BG 50-69 IN ALERT PATIENT Protocol Dextrose 25 gm 06/04/20 18:42 Dextrose Inj 50% Syringe (25 Gm/50 Ml) IV 07/04/20 18:41 PRN PRN PER PROTOCOL Protocol Enoxaparin Sodium 40 mg 06/04/20 19:30 06/05/20 09:36 Lovenox Inj 40 Mg/0.4 Ml Disp.Syrin SUBCUT 07/04/20 19:29 40 mg DAILY ADY Administration Ferrous Sulfate 325 mg 06/05/20 10:00 06/05/20 09:34 Feosol 325 Mg Tablet PO 07/05/20 09:59 325 mg DAILY ADY Administration Glucagon 1 mg 06/04/20 18:42 Glucagen Inj 1 Mg Vial IM 07/04/20 18:41 PRN PRN Evaluate for BG < 70 Protocol Glucose 15 gm 06/04/20 18:42 Glutose 40% Gel 15 Gm Tube PO 07/04/20 18:41 PRN PRN FOR BG 50-69 IN ALERT PATIENT Protocol Glucose 30 gm 06/04/20 18:42 Glutose 40% Gel 15 Gm Tube PO 07/04/20 18:41 PRN PRN FOR BG < 50 IN ALERT PATIENT Protocol Hydrochlorothiazide 12.5 mg 06/05/20 10:00 06/05/20 09:33 Hydrodiuril 12.5 Mg Tablet PO 07/05/20 09:59 12.5 mg DAILY ADY Administration Sodium Chloride 1,000 mls @ 100 mls/hr 06/04/20 18:42 06/05/20 17:07 Nacl 0.9% 1000 Ml Iv Soln IV 07/04/20 18:41 100 mls/hr CONTINUOUS PRN Administration THIS MED IS NOT "PRN" Piperacillin Sod/Tazobactam 100 mls @ 200 mls/hr 06/04/20 21:00 06/05/20 21:35 Sod 3.375 gm/ Sodium Chloride IV 06/11/20 20:59 200 mls/hr Q6A ADY Administration Vancomycin HCl 1,500 mg/ 250 mls @ 166.667 mls/hr 06/05/20 14:00 06/05/20 22:22 Dextrose IV 06/12/20 13:59 166.66 mls/hr Q8 ADY Administration Insulin Human Lispro 0 - 12 unit 06/04/20 22:00 06/05/20 22:21 Humalog Insulin 100 Unit/1 Ml 3 Ml Vial SUBCUT 07/04/20 21:59 4 unit ACHS ADY Administration Protocol Insulin Human NPH 50 unit 06/05/20 08:00 06/05/20 09:35 Humulin N (Nph) Insulin 100 Unit/1 Ml 3 Ml SUBCUT 07/05/20 07:59 50 unit QAM ADY Administration Insulin Human NPH 30 unit 06/05/20 18:00 06/05/20 17:10 Humulin N (Nph) Insulin 100 Unit/1 Ml 3 Ml SUBCUT 07/05/20 17:59 30 unit QPM ADY Administration Lactobacillus Acidophilus 250 mg 06/05/20 10:00 06/05/20 17:09 Bacid 250 Mg Tablet PO 07/05/20 09:59 250 mg BID ADY Administration Losartan Potassium 100 mg 06/05/20 10:00 06/05/20 09:34 Cozaar 50 Mg Tablet PO 07/05/20 09:59 100 mg DAILY ADY Administration Metformin HCl 1,000 mg 06/05/20 08:00 06/05/20 17:09 Glucophage 500 Mg Tablet PO 07/05/20 07:59 1,000 mg BIDACBS ADY Administration Pantoprazole Sodium 40 mg 06/05/20 06:00 06/05/20 05:[address] Tablet PO 07/05/20 05:59 40 mg Q6AM ADY Administration Patient Own Medication 50 mcg 06/05/20 10:00 Cyanocobalamin (Vitamin B-12) [Vitamin B-12] PO 07/05/20 09:59 .DAILY ADY Tramadol HCl 50 mg 06/05/20 08:30 06/05/20 09:33 Ultram 50 Mg Tablet PO 06/12/20 08:29 50 mg Q6HP PRN Administration FOR PAIN Discontinued Medications Generic Name Dose Route Start Last Admin Trade Name Freq PRN Reason Stop Dose Admin Acetaminophen 975 mg 06/04/20 14:47 06/04/20 14:52 Tylenol 325 Mg Tablet PO 06/04/20 14:48 975 mg NOW ONE Administration Sodium Chloride 1,000 mls @ 0 mls/hr 06/04/20 14:26 06/04/20 15:35 Nacl 0.9% 1000 Ml Iv Soln IV 06/04/20 14:27 Infused BOLUS ONE Infusion Wide Open Vancomycin HCl 2,000 mg/ 500 mls @ 250 mls/hr 06/05/20 06:00 06/05/20 05:47 Dextrose IV 06/12/20 05:59 250 mls/hr Q12A ADY 250 mls/hr Administration Piperacillin Sod/Tazobactam Sod 3.375 gm 06/04/20 12:16 06/04/20 14:22 Zosyn Inj 3.375 Gm Vial IV 06/04/20 12:17 3.375 gm IVBAG (ED) ONE Administration Vancomycin HCl 2,000 mg 06/04/20 12:14 06/04/20 15:22 Vancocin Inj 1000 Mg Vial IV 06/04/20 12:15 2,000 mg IVBAG (ED) ONE Administration Review of Systems Constitutional: PRESENT: chills. ABSENT: fever(s), headache(s) Eyes: ABSENT: visual disturbances Ears: ABSENT: hearing changes Nose, Mouth, and Throat: ABSENT: headache(s), vertigo Cardiovascular: ABSENT: chest pain, dyspnea on exertion, edema, orthropnea, palpitations Respiratory: ABSENT: cough, dyspnea, hemoptysis, sputum Gastrointestinal: ABSENT: abdominal pain, constipation, diarrhea, hematemesis, hematochezia, nausea, vomiting Genitourinary: ABSENT: difficulty urinating, dysuria, hematuria Musculoskeletal: PRESENT: other - foot swelling with pain and open wound on left 5th and blister lesion on 2nd toe. ABSENT: joint swelling Integumentary: ABSENT: rash, wounds Neurological: ABSENT: abnormal gait, abnormal speech, confusion, dizziness, focal weakness, syncope Psychiatric: ABSENT: anxiety, depression, homidical ideation, suicidal ideation Endocrine: ABSENT: cold intolerance, heat intolerance, menstrual abnormalities, polydipsia, polyuria Hematologic/Lymphatic: ABSENT: easy bleeding, easy bruising, lymphadenopathy Allergic/Immunologic: ABSENT: seasonal rhinorrhea PHYSICAL EXAMINATION: The patient is morbidly obese. In no acute distress. Selected Entries 06/05/20 20:00 Temperature 98.9 F Temperature Oral Source Pulse Rate 92 Respiratory 14 Rate Blood Pressure 143/85 H [Upper Arm] Blood Pressure 104 Mean [Upper Arm ] Blood Pressure Sitting Position [Upper Arm] Blood Pressure 143 H Systolic [Upper Arm] O2 Sat by Pulse 100 Oximetry Oxygen Delivery Room Air Method ( includes room air) HEAD: Is atraumatic normocephalic. EYES: Pupils are equal round regular reactive to light accommodation. Extraocular movements are normal. There is no conjunctival pallor. There is no scleral icterus. EARS: Tympanic membranes are intact. External auditory canals are clear. NOSE: There is no deviated nasal septum. There is no inflammation of the nasal mucous membrane. MOUTH: Mucous membranes of mouth are moist. Tongue is moist. There is no ulcers. There is no bleeding from the gums. THROAT: There is no redness of the oropharynx. There is no exudates. SKIN: There is no skin rashes. There is no petechia or ecchymosis. There is no skin lesions. NECK: Is supple. There is no JVD. Carotids are equal there is no bruit. There is no lymphadenopathy. There is no goiter. There is no accessory muscle respiration use. Trachea central. LUNGS: Is clear to auscultation percussion. HEART: S1-S2 is heard. There is no S4 gallop there is no S3 gallop. There is systolic murmur left sternal border and the apex without radiation. THERE is no rub. ABDOMEN: Is obese. Nontender there is no hepatosplenomegaly. Bowel sounds are well heard. Bowel sounds are normal. There is no tender areas of. EXTREMITIES: Femorals are deep. There is no femoral bruits. Leg pulses are well felt. There is no pedal edema. There is no DVT cellulitis. There is no calf tenderness. There is early gangrenous changes of the left second toe. There is wet gangrene with infection of the left fifth toe INJECTION SPECIALIST: The patient is conscious awake alert oriented x3 with no focal deficits. PSYCHIATRIC: The patient judgment site are intact her affect is normal. EKG: Sinus rhythm within normal limits. ECHOCARDIOGRAM: Normal left ventricle chamber size. There is mild LVH. Normal left ventricular diastolic function. There is no regional or focal wall motion abnormality. LV ejection fraction is normal. There is trace mitral regurgitation and trace tricuspid regurgitation. There is no mitral stenosis or mitral prolapse. There is no aortic stenosis or aortic regurgitation. The tricuspid regurgitant jet is not enough to estimate right ventricle systolic pressure. There is no pericardial effusion. Labs- Entire Visit 06/04/20 06/04/20 06/04/20 12:25 12:25 12:25 WBC 11.7 H RBC 4.73 Hgb 12.1 Hct 34.5 L MCV 73 L MCH 25.6 L MCHC 35.2 RDW 17.0 H Plt Count 281 Lymph % (Auto) 11.2 L [place] % (Auto) 6.8 Eos % (Auto) 0.2 Baso % (Auto) 0.6 Absolute Neuts (auto) 9.5 H Absolute Lymphs (auto) 1.3 Absolute Monos (auto) 0.8 Absolute Eos (auto) 0.0 Absolute Basos (auto) 0.1 Seg Neutrophils % 81.2 H Sodium 132.6 L Potassium 3.9 Chloride 97 L Carbon Dioxide 27 Anion Gap 9 BUN 7 Creatinine 0.59 Est GFR ( Amer) > 60 Est GFR (MDRD) Non-Af > 60 Glucose 205 H POC Glucose Hemoglobin A1c % Lactic Acid 1.9 Calcium 9.2 Total Bilirubin 0.7 Direct Bilirubin 0.4 Neonat Total Bilirubin Not Reportable Neonat Direct Bilirubin Not Reportable Neonat Indirect Bili Not Reportable AST 15 ALT 13 Alkaline Phosphatase 78 Total Protein 7.8 Albumin 3.8 Triglycerides Cholesterol LDL Cholesterol Direct VLDL Cholesterol HDL Cholesterol Urine Color Urine Appearance Urine pH Ur Specific Swisher Urine Protein Urine Glucose (UA) Urine Ketones Urine Blood Urine Nitrite Urine Bilirubin Urine Urobilinogen Ur Leukocyte Esterase Urine WBC (Auto) Urine RBC (Auto) Squamous Epi Cells Auto Urine Mucus (Auto) Urine Ascorbic Acid Urine HCG, Qual SARS-CoV-2 (PCR) 06/04/20 06/05/20 06/05/20 17:30 06:04 06:04 WBC 8.6 RBC 4.38 Hgb 11.0 L Hct 32.1 L MCV 73 L MCH 25.1 L MCHC 34.2 RDW 16.9 H Plt Count 271 Lymph % (Auto) 20.8 [place] % (Auto) 10.6 Eos % (Auto) 1.1 Baso % (Auto) 0.5 Absolute Neuts (auto) 5.7 Absolute Lymphs (auto) 1.8 Absolute Monos (auto) 0.9 Absolute Eos (auto) 0.1 Absolute Basos (auto) 0.0 Seg Neutrophils % 67.0 Sodium 135.6 L Potassium 4.0 Chloride 103 Carbon Dioxide 25 Anion Gap 8 BUN 7 Creatinine 0.66 Est GFR ( Amer) > 60 Est GFR (MDRD) Non-Af > 60 Glucose 248 H POC Glucose Hemoglobin A1c % Lactic Acid Calcium 8.6 Total Bilirubin 0.8 Direct Bilirubin 0.4 Neonat Total Bilirubin Not Reportable Neonat Direct Bilirubin Not Reportable Neonat Indirect Bili Not Reportable AST 14 ALT 9 Alkaline Phosphatase 71 Total Protein 6.8 Albumin 3.2 L Triglycerides 149 Cholesterol 138.83 LDL Cholesterol Direct 81 VLDL Cholesterol 30.0 HDL Cholesterol 30 L Urine Color YELLOW Urine Appearance CLEAR Urine pH 6.0 Ur Specific Swisher 1.014 Urine Protein NEGATIVE Urine Glucose (UA) 150 H Urine Ketones NEGATIVE Urine Blood NEGATIVE Urine Nitrite NEGATIVE Urine Bilirubin NEGATIVE Urine Urobilinogen 2.0 H Ur Leukocyte Esterase NEGATIVE Urine WBC (Auto) 0 Urine RBC (Auto) 1 Squamous Epi Cells Auto 1 Urine Mucus (Auto) RARE Urine Ascorbic Acid NEGATIVE Urine HCG, Qual NEGATIVE SARS-CoV-2 (PCR) 09/24/20 09/24/20 09/24/20 06:04 07:26 11:34 WBC RBC Hgb Hct MCV MCH MCHC RDW Plt Count Lymph % (Auto) [place] % (Auto) Eos % (Auto) Baso % (Auto) Absolute Neuts (auto) Absolute Lymphs (auto) Absolute Monos (auto) Absolute Eos (auto) Absolute Basos (auto) Seg Neutrophils % Sodium Potassium Chloride Carbon Dioxide Anion Gap BUN Creatinine Est GFR ( Amer) Est GFR (MDRD) Non-Af Glucose POC Glucose 288 H 267 H Hemoglobin A1c % 10.7 H Lactic Acid Calcium Total Bilirubin Direct Bilirubin Neonat Total Bilirubin Neonat Direct Bilirubin Neonat Indirect Bili AST ALT Alkaline Phosphatase Total Protein Albumin Triglycerides Cholesterol LDL Cholesterol Direct VLDL Cholesterol HDL Cholesterol Urine Color Urine Appearance Urine pH Ur Specific Swisher Urine Protein Urine Glucose (UA) Urine Ketones Urine Blood Urine Nitrite Urine Bilirubin Urine Urobilinogen Ur Leukocyte Esterase Urine WBC (Auto) Urine RBC (Auto) Squamous Epi Cells Auto Urine Mucus (Auto) Urine Ascorbic Acid Urine HCG, Qual SARS-CoV-2 (PCR) 06/05/20 06/05/20 06/05/20 15:22 17:00 21:37 WBC RBC Hgb Hct MCV MCH MCHC RDW Plt Count Lymph % (Auto) [place] % (Auto) Eos % (Auto) Baso % (Auto) Absolute Neuts (auto) Absolute Lymphs (auto) Absolute Monos (auto) Absolute Eos (auto) Absolute Basos (auto) Seg Neutrophils % Sodium Potassium Chloride Carbon Dioxide Anion Gap BUN Creatinine Est GFR ( Amer) Est GFR (MDRD) Non-Af Glucose POC Glucose 169 H 202 H Hemoglobin A1c % Lactic Acid Calcium Total Bilirubin Direct Bilirubin Neonat Total Bilirubin Neonat Direct Bilirubin Neonat Indirect Bili AST ALT Alkaline Phosphatase Total Protein Albumin Triglycerides Cholesterol LDL Cholesterol Direct VLDL Cholesterol HDL Cholesterol Urine Color Urine Appearance Urine pH Ur Specific Swisher Urine Protein Urine Glucose (UA) Urine Ketones Urine Blood Urine Nitrite Urine Bilirubin Urine Urobilinogen Ur Leukocyte Esterase Urine WBC (Auto) Urine RBC (Auto) Squamous Epi Cells Auto Urine Mucus (Auto) Urine Ascorbic Acid Urine HCG, Qual SARS-CoV-2 (PCR) NEGATIVE Foot X-Ray 06/04/20 12:12 IMPRESSION: Negative exam. No conventional radiographic evidence of osteomyelitis. IMPRESSION/RECOMMENDATION: 1. 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 For amputation of the left fifth toe. 2. Hypertension: Patient's blood pressure reasonably controlled continue current antihypertensive. 3. Diabetes mellitus type 2 insulin-dependent. Continue current antidiabetic treatment and Accu-Cheks regularly. 4. Systolic murmur most likely flow murmur no valvular lesions by echocardiography. 5. Clinically and by history no evidence of coronary artery disease. 6. Preoperative cardiac risk assessment work. MY RECOMMENDATION/OPINION IS THAT THIS PATIENT WILL BE LOW CARDIAC RISK FOR THIS SURGICAL PROCEDURE. Medications reviewed. Medical regiment and management plan discussed with Dr. Arshad. Medical decision making is of high complexity. 60 minutes spent with patient with more than 50% of time spent in direct patient care. Will follow.
[2020-06-06] MEDS: PIPERACILLIN SODIUM/TAZOBACTAM 3.375 GM in NORMAL SALINE 100 ML IV SCH ×4 (03:00→21:18)
[2020-06-06] MEDS: PANTOPRAZOLE SODIUM 40 MG TABLET.DR PO SCH (05:09)
[2020-06-06] MEDS: VANCOMYCIN HCL 1,500 MG in DEXTROSE 5%-WATER 250 ML IV SCH ×3 (05:10→22:15)
[2020-06-06] MEDS: INSULIN LISPRO 100 UNIT/ML 3 ML VIAL SUBCUT SCH ×4 (10:43→22:14)
[2020-06-06] MEDS: METFORMIN HCL 500 MG TABLET PO SCH ×2 (10:43→16:57)
[2020-06-06] MEDS: LACTOBACILLUS ACIDOPHILUS 250 MG TAB PO SCH ×2 (10:45→17:46)
[2020-06-06] MEDS: FERROUS SULFATE 325 MG TABLET PO SCH (10:46)
[2020-06-06] MEDS: LOSARTAN POTASSIUM 50 MG TABLET PO SCH (10:46)
[2020-06-06] MEDS: ENOXAPARIN SODIUM INJ 40 MG/0.4 ML DISP.SYRIN SUBCUT SCH (10:47)
[2020-06-06] MEDS: AMLODIPINE BESYLATE 10 MG TABLET PO SCH (10:51)
[2020-06-06] MEDS: HYDROCHLOROTHIAZIDE 12.5 MG TABLET PO SCH (10:51)
[2020-06-06] MEDS: NORMAL SALINE 1000 ML 1,000 ML IV PRN (10:51)
[2020-06-06] MEDS: INSULIN NPH (ISOPHANE), HUMAN 100 UNIT/ML 3 ML SUBCUT SCH ×2 (10:55→17:46)
[2020-06-06] MEDS ORDERED: KETAMINE HCL INJ 500 MG/10 ML VIAL ONE (12:46)
[2020-06-06] MEDS ORDERED: MIDAZOLAM 2 MG/2 ML INJ ONE (12:47)
[2020-06-06] MEDS ORDERED: LIDOCAINE 1% INJ-PF (10 MG/ML) 30 ML SDV ONE (12:47)
[2020-06-06] MEDS ORDERED: BUPIVACAINE HCL 0.25 % INJ/PF (2.5 MG/1 ML) 30 ML VIAL ONE (12:47)
[2020-06-06] MEDS ORDERED: PROPOFOL INJ 200 MG/20 ML VIAL IV ONE (12:47)
[2020-06-06] MEDS ORDERED: FENTANYL CITRATE INJ/PF 100 MCG/2 ML AMPUL ONE (12:47)
[2020-06-06] MEDS ORDERED: DIPHENHYDRAMINE HCL 50 MG/ML VIAL IV PRN (13:27)
[2020-06-06] MEDS ORDERED: MORPHINE SULFATE 10 MG/ML INJ IV PRN (13:27)
[2020-06-06] MEDS ORDERED: MEPERIDINE HCL/PF INJ 25 MG/1 ML DISP.SYRIN IV PRN (13:27)
[2020-06-06] MEDS ORDERED: FENTANYL CITRATE INJ/PF 100 MCG/2 ML AMPUL IV PRN ×3 (13:27)
[2020-06-06] MEDS ORDERED: PROMETHAZINE HCL INJ 25 MG/1 ML VIAL IV PRN ×2 (13:27)
--- NOTE | 2020-06-06 16:43 | PDOC PROGRESS REPORT ---
Subjective Progress Note for:: 06/06/20 Subjective:: Patient denied any chest pain or difficulty with breathing. No nausea, vomiting, or abdominal pain. No fever or chills. She is post left foot 2nd and 5th toes amputation. Dressing is currently satisfactory. Reason For Visit: DIABETIC ULCER OF TOE/CELLULITIS Physical Exam Vital Signs: Temp Pulse Resp BP Pulse Ox 97.8 F 79 16 130/84 H 100 06/06/20 14:03 06/06/20 14:03 06/06/20 14:03 06/06/20 14:03 06/06/20 14:03 Intake & Output 06/05/20 06/06/20 06/07/20 06:59 06:59 06:59 Intake Total 1999 2962 500 Balance 1999 2962 500 Weight 161 kg 155.4 kg Physical Exam: General appearance: PRESENT: appropriate in responses, morbidly obese Head exam: PRESENT: atraumatic, normocephalic Eye exam: PRESENT: conjunctiva pink. ABSENT: pallor, scleral icterus Mouth exam: PRESENT: moist Respiratory exam: PRESENT: clear to auscultation [place] Cardiovascular exam: PRESENT: RRR, +S1, +S2. ABSENT: diastolic murmur, rubs, systolic murmur GI/Abdominal exam: PRESENT: normal bowel sounds, soft. ABSENT: distended, guarding, mass, organomegaly, rebound, tenderness. Extremities exam: ABSENT: pedal edema, s/p left 2nd and 5th toes amputation. Neurological exam: PRESENT: alert, awake, oriented to person, oriented to place, oriented to time, oriented to situation, CN II-XII grossly intact. ABSENT: motor sensory deficit Psychiatric exam: PRESENT: appropriate affect, normal mood. ABSENT: homicidal ideation, suicidal ideation Skin exam: PRESENT: dry, warm. Satisfactory left foot dressing. Results Laboratory Results: 06/05/20 06:04 06/05/20 06:04 06/04/20 18:59 Foot - Left Gram Stain - Final 06/04/20 18:59 Foot - Left Wound Culture - Final Group B Beta Streptococcus Skin Miladys Impressions: Foot X-Ray 06/04/20 12:12 IMPRESSION: Negative exam. No conventional radiographic evidence of o steomyelitis. Assessment & Plan - Diagnosis (1) Cellulitis of foot Is this a current diagnosis for this admission?: Yes (2) Diabetic ulcer of toe Qualifiers: Diabetes mellitus type: type 2 Laterality: left Non-pressure ulcer stage: with other severity Qualified Code(s): E11.621 - Type 2 diabetes mellitus with foot ulcer; L97.528 - Non-pressure chronic ulcer of other part of left foot with other specified severity Is this a current diagnosis for this admission?: Yes (3) Uncontrolled stage 2 hypertension Is this a current diagnosis for this admission?: Yes (4) Uncontrolled type 2 diabetes mellitus Qualifiers: Glycemic state: with hyperglycemia Qualified Code(s): E11.65 - Type 2 diabetes mellitus with hyperglycemia Is this a current diagnosis for this admission?: Yes (5) Morbid (severe) obesity due to excess calories Is this a current diagnosis for this admission?: Yes - Time Time Spent with patient: 25-34 minutes Level of Care: IMCU Medications reviewed and adjusted accordingly: Yes Anticipated discharge: Home with Homehealth Anticipated DC Timeframe: within 72 hours - Inpatient Certification Based on my medical assessment, after consideration of the patient's comorbidities, presenting symptoms, or acuity I expect that the services needed warrant INPATIENT care.: Yes I certify that my determination is in accordance with my understanding of Medicare's requirements for reasonable and necessary INPATIENT services [42 CFR 412.3e].: Yes Medical Necessity: Significant Comorbidiites Make Outpatient Treatment Too Risky, Need Close Monitoring Due to Risk of Patient Decompensation, Need For IV Fluids, Need For Continuous Telemetry Monitoring, Need for IV Antibiotics, Need for Surgery, Risk of Complication if Not Cared For in Hospital, Risk of Diagnosis Which Will Require Inpatient Eval/Care/Monitoring Post Hospital Care: D/C Die Sinker Documentation - Plan Summary Plan Summary: Continue all current medication management. Wound care at the direction of the surgical team.
--- NOTE | 2020-06-06 18:46 | PDOC PROGRESS REPORT ---
Subjective Progress Note for:: 06/06/20 Subjective:: 35-year-old female with a severe diabetic foot infection and wet gangrene of the left fifth toe. She reports erythema extending up the dorsum of the foot. She reports left foot pain, malaise, and fatigue. She denies chest pain, shortness of breath, dizziness, orthostasis, nausea, vomiting, abdominal pain, headache. Reason For Visit: DIABETIC ULCER OF TOE/CELLULITIS Physical Exam Vital Signs: Temp Pulse Resp BP Pulse Ox 98.7 F 81 16 98/71 L 99 06/06/20 16:34 06/06/20 16:34 06/06/20 14:03 06/06/20 16:34 06/06/20 16:34 Intake & Output 06/05/20 06/06/20 06/07/20 06:59 06:59 06:59 Intake Total 1999 2962 990 Balance 1999 2962 990 Weight 161 kg 155.4 kg General appearance: PRESENT: no acute distress, morbidly obese Head exam: PRESENT: atraumatic, normocephalic Eye exam: PRESENT: EOMI, PERRLA. ABSENT: scleral icterus Mouth exam: PRESENT: moist, neck supple Neck exam: ABSENT: meningismus, tenderness, thyromegaly, tracheal deviation Cardiovascular exam: ABSENT: tachycardia GI/Abdominal exam: PRESENT: soft. ABSENT: tenderness Rectal exam: PRESENT: deferred Extremities exam: PRESENT: other - Wet gangrene of the left fifth toe. It extends to the base of the toe, with erythema extending up the dorsum of the foot. Neurological exam: PRESENT: alert, awake, oriented to person, oriented to place, oriented to time, oriented to situation Psychiatric exam: ABSENT: agitated, anxious, depressed Focused psych exam: ABSENT: delusional Skin exam: PRESENT: erythema - See extremity exam. ABSENT: jaundice Results Laboratory Results: 06/05/20 06:04 06/05/20 06:04 06/04/20 18:59 Foot - Left Gram Stain - Final 06/04/20 18:59 Foot - Left Wound Culture - Final Group B Beta Streptococcus Skin Miladys Impressions: Foot X-Ray 06/04/20 12:12 IMPRESSION: Negative exam. No conventional radiographic evidence of osteomyelitis. Assessment & Plan - Diagnosis (1) Gangrene of left foot Is this a current diagnosis for this admission?: Yes - Time Anticipated Discharge Disposition: unknwon Anticipated Discharge Timeframe: unknown - Plan Summary Plan Summary: This is a 35-year-old female with wet gangrene of the left foot. She has obvious necrosis of the left fifth toe, with erythema extending up the dorsum of the foot. Plan for amputation of the left fifth toe today, with drainage of any purulent material of the foot. The patient also has an eschar/callus of the left second toe. At this time I do not identify any obvious infection. I have discussed foot care with her, and the patient does not desire any other amputations (except for the left fifth toe) at this time. Continue to monitor the left second toe very closely. If at any time it appears compromised, she may require amputation of this toe.
--- NOTE | 2020-06-06 18:52 | Operative Report ---
Nonrecallable Operative Report DATE OF SURGERY: 06/06/20 PREOPERATIVE DIAGNOSIS: Wet gangrene of the left fifth toe POSTOPERATIVE DIAGNOSIS: 1. Same as above. 2. Diabetic foot abscess, left. OPERATION: Ray amputation of the left fifth toe, with drainage of accompanying left foot abscess SURGEON: KYRA MENESES ANESTHESIA: LMAC TISSUE REMOVED OR ALTERED: 1. Left fifth toe and metatarsal head. 2. Wound culture of abscess cavity COMPLICATIONS: None apparent ESTIMATED BLOOD LOSS: Minimal PROCEDURE: Drains/implants: 4 x 4 gauze soaked in Kerlix. Procedure in detail: After informed consent was obtained, the patient was brought to the operating room and laid in the supine position. The area of the left foot was prepped and draped in a normal sterile fashion. Local anesthesia was used to anesthetize the skin and soft tissues of the foot. An incision was created around the left fifth toe. The incision was carried proximally on the dorsal/lateral aspect of the foot over the metatarsal. The toe was disarticulated sharply, with a scalpel. It was then passed off the field. As the incision was carried proximally, and an abscess cavity was identified on the dorsum of the foot. There was purulent material present. This was cultured. Next, all nonviable tissue was debrided away sharply. This included skin, fatty tissue, and some muscle. Once the tissue appeared healthy, the metatarsal head was divided using the large bone cutters. It was passed off the field. Next 2- 0 Vicryl suture was used to provide soft tissue coverage over the cut bone surface. The wound was then irrigated, and packed with a 4 x 4 gauze soaked in Betadine. The skin was left open. A dressing was placed, and the procedure was concluded. All sponge, instrument, and needle counts were correct x2. Condition: Fair.
[2020-06-06 21:56] LABS: VANCOMYCIN,TROUGH 11.5 ug/mL (5.0-20.0)
--- NOTE | 2020-06-06 22:42 | Progress Note ---
Provider Note Provider Note: CARDIOLOGY PROGRESS NOTE by Dr. Marleni Chilel on 06/06/2020. SUBJECTIVE: The patient had amputation of her toes. She is stable and without any chest pain or discomfort. There is no shortness of breath there is no PND orthopnea or leg edema. There is no arrhythmias seen on the monitor. PHYSICAL EXAMINATION: The patient morbidly obese. In no acute distress Selected Entries 06/06/20 06/06/20 14:03 16:34 Temperature 97.8 F Pulse Rate 79 Respiratory 16 Rate Blood Pressure 130/84 H O2 Sat by Pulse 100 Oximetry Oxygen Delivery Room Air Method HEAD: Is atraumatic normocephalic. EYES: Pupils are equal round regular reactive to light accommodation. Extraocular movements are normal. There is no conjunctival pallor. There is no scleral icterus. EARS: Tympanic membranes are intact. External auditory canals are clear. NOSE: There is no deviated nasal s eptum. There is no inflammation of the nasal mucous membrane. MOUTH: Mucous membranes of mouth are moist. Tongue is moist. There is no ulcers. There is no bleeding from the gums. THROAT: There is no redness of the oropharynx. There is no exudates. SKIN: There is no skin rashes. There is no petechia or ecchymosis. There is no skin lesions. NECK: Is supple. There is no JVD. Carotids are equal there is no bruit. There is no lymphadenopathy. There is no goiter. There is no accessory muscle respiration use. Trachea central. LUNGS: Is clear to auscultation percussion. HEART: S1-S2 is heard. There is no S4 gallop there is no S3 gallop. There is systolic murmur left sternal border and the apex without radiation. THERE is no rub. ABDOMEN: Is obese. Nontender there is no hepatosplenomegaly. Bowel sounds are well heard. Bowel sounds are normal. There is no tender areas of. EXTREMITIES: Femorals are deep. There is no femoral bruits. Leg pulses are well felt. There is no pedal edema. There is no DVT cellulitis. There is no calf tenderness. There is dressing in the left foot which is clean and dry. 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 PSYCHIATRIC: The patient judgment site are intact her affect is normal. Labs- All tests 24 hr 06/06/20 06/06/20 06/06/20 16:46 21:16 21:16 Creatinine 0.70 Est GFR ( Amer) > 60 Est GFR (MDRD) Non-Af > 60 POC Glucose 229 H Time Trough Drawn 6 Vancomycin Trough 11.5 06/06/20 21:27 Creatinine Est GFR ( Amer) Est GFR (MDRD) Non-Af POC Glucose 204 H Time Trough Drawn Vancomycin Trough Foot X-Ray 06/04/20 12:12 IMPRESSION: Negative exam. No conventional radiographic evidence of osteomyelitis. Cardiac status is stable. IMPRESSION/RECOMMENDATION: 1. 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 Status post amputation of the second and fifth left toes. Postop patient stable 2. Hypertension: Patient's blood pressure reasonably controlled continue current antihypertensive. 3. Diabetes mellitus type 2 insulin-dependent. Continue current antidiabetic treatment and Accu-Cheks regularly. 4. Systolic murmur most likely flow murmur no valvular lesions by echocardiograph. 5. Although clinicallyCAD or by history, patient's risk factor for coronary artery disease are namely age, hypertension, diabetes mellitus, and tobacco abuse disorder hence later would recommend patient have an IV Lexiscan C ardiolite stress test. This can be done as an outpatient if the patient so desires. Medications reviewed. Medical regimen and management plan discussed with the attending provider on the case. Medical decision making is of moderate complexity. Cardiac status is stable. We will sign off. 40 minutes spent as patient more than 50% of time spent in direct patient care. If the patient so desires she can follow-up with me in the office.
[2020-06-07] MEDS: PIPERACILLIN SODIUM/TAZOBACTAM 3.375 GM in NORMAL SALINE 100 ML IV SCH ×4 (03:00→21:00)
[2020-06-07] MEDS: VANCOMYCIN HCL 1,500 MG in DEXTROSE 5%-WATER 250 ML IV SCH ×3 (05:50→22:12)
[2020-06-07] MEDS: PANTOPRAZOLE SODIUM 40 MG TABLET.DR PO SCH (05:50)
[2020-06-07 06:42] LABS: ABSOLUTE EOSINOPHILS # (AUTO) 0.3 10^3/uL (0.0-0.6); ABSOLUTE LYMPHOCYTES (AUTO) 1.5 10^3/uL (0.5-4.7); ABSOLUTE MONOCYTES (AUTO) 0.9 10^3/uL (0.1-1.4); ABSOLUTE NEUT (AUTO) 4.8 10^3/uL (1.7-8.2); BASOPHILS % (AUTO) 0.6 % (0-2); EOSINOPHILS % (AUTO) 3.7 % (0-6); HEMOGLOBIN 10.7 g/dL (12.0-15.5); LYMPHOCYTES % (AUTO) 20.2 % (13-45); MEAN CORPUSCULAR HEMOGLOBIN 24.5 pg (27.0-33.4); MEAN CORPUSCULAR HGB CONC 33.5 g/dL (32.0-36.0); MEAN CORPUSCULAR VOLUME 73 fl (80-97); MONOCYTES % (AUTO) 11.8 % (3-13); PLATELET COUNT 303 10^3/uL (150-450); RED BLOOD COUNT 4.37 10^6/uL (3.72-5.28); RED CELL DISTRIBUTION WIDTH 16.4 % (11.5-14.0); SEGMENTED NEUTROPHILS % (AUTO) 63.7 % (42-78); TOTAL CELLS COUNTED % (AUTO) 100 %; WHITE BLOOD COUNT 7.6 10^3/uL (4.0-10.5)
[2020-06-07 07:06] LABS: ANION GAP 9 (5-19); BLOOD UREA NITROGEN 7 mg/dL (7-20); CALCIUM 8.6 mg/dL (8.4-10.2); CARBON DIOXIDE 24 mmol/L (22-30); CHLORIDE 103 mmol/L (98-107); GLUCOSE 184 mg/dL (75-110); POTASSIUM 4.1 mmol/L (3.6-5.0)
--- NOTE | 2020-06-07 10:49 | PDOC PROGRESS REPORT ---
Subjective Progress Note for:: 06/07/20 Reason For Visit: DIABETIC ULCER OF TOE/CELLULITIS Patient has no complaints, less pain in her foot, and reports less swelling Physical Exam Vital Signs: Temp Pulse Resp BP Pulse Ox 98.3 F 78 18 140/73 H 99 06/07/20 07:40 06/07/20 07:40 06/07/20 07:40 06/07/20 07:40 06/07/20 07:40 Intake & Output 06/06/20 06/07/20 06/08/20 06:59 06:59 06:59 Intake Total 2962 1640 250 Balance 2962 1640 250 Weight 155.4 kg 161.4 kg 161.4 kg General appearance: PRESENT: no acute distress Musculoskeletal exam: PRESENT: other - Left foot examined, dressings removed. Bounding dorsalis pedis pulse. Packing removed from left fifth ray amputation site. Wound cavity clean, no foul smell; no pus expressed from the dorsum of the foot; left second toe dry, with bruised skin and eschar medially; toe appears viable Results Laboratory Results: 06/07/20 05:33 06/07/20 05:33 06/06/20 06/07/20 06/07/20 21:16 05:33 05:33 WBC 7.6 RBC 4.37 Hgb 10.7 L Hct 32.0 L MCV 73 L MCH 24.5 L MCHC 33.5 RDW 16.4 H Plt Count 303 Seg Neutrophils % 63.7 Sodium 136.3 L Potassium 4.1 Chloride 103 Carbon Dioxide 24 Anion Gap 9 BUN 7 Creatinine 0.70 0.72 Est GFR ( Amer) > 60 > 60 Glucose 184 H Calcium 8.6 06/04/20 18:59 Foot - Left Gram Stain - Final 06/04/20 18:59 Foot - Left Wound Culture - Final Group B Beta Streptococcus Skin Miladys Impressions: Foot X-Ray 06/04/20 12:12 IMPRESSION: Negative exam. No conventional radiographic evidence of osteomyelitis. Assessment & Plan - Diagnosis (1) Hyperglycemia Is this a current diagnosis for this admission?: Yes Plan: Impression: Patient is postoperative day 1 status post left fifth ray amputation, wound left open, foot sepsis stabilizing with no indication of infection progression; no indication for further debridement today Plan: 1. Wound redressed today; patient may be up ambulating with surgical sandal 2. Left second toe appears viable at this time. 3. Will reexamine left foot and wound tomorrow morning. The above discussed with nursing staff - Time Time Spent: 30 to 50 Minutes Critical Time spent with patient: Less than 15 minutes Anticipated Discharge Disposition: Home, Self Care Anticipated Discharge Timeframe: within 48 hours
[2020-06-07] MEDS: METFORMIN HCL 500 MG TABLET PO SCH ×2 (11:09→16:02)
[2020-06-07] MEDS: LACTOBACILLUS ACIDOPHILUS 250 MG TAB PO SCH ×2 (11:09→18:35)
[2020-06-07] MEDS: LOSARTAN POTASSIUM 50 MG TABLET PO SCH (11:09)
[2020-06-07] MEDS: TRAMADOL HCL 50 MG TABLET PO PRN (11:10)
[2020-06-07] MEDS: HYDROCHLOROTHIAZIDE 12.5 MG TABLET PO SCH (11:11)
[2020-06-07] MEDS: AMLODIPINE BESYLATE 10 MG TABLET PO SCH (11:11)
[2020-06-07] MEDS: FERROUS SULFATE 325 MG TABLET PO SCH (11:11)
[2020-06-07] MEDS: INSULIN NPH (ISOPHANE), HUMAN 100 UNIT/ML 3 ML SUBCUT SCH ×2 (11:12→18:35)
[2020-06-07] MEDS: INSULIN LISPRO 100 UNIT/ML 3 ML VIAL SUBCUT SCH ×4 (11:13→22:11)
[2020-06-07] MEDS: ENOXAPARIN SODIUM INJ 40 MG/0.4 ML DISP.SYRIN SUBCUT SCH (11:14)
[2020-06-07] MEDS: NORMAL SALINE 1000 ML 1,000 ML IV PRN (14:04)
--- NOTE | 2020-06-07 16:18 | PDOC PROGRESS REPORT ---
Subjective Progress Note for:: 06/07/20 Subjective:: Patient seen by the bedside, status post amputation of toes of the left foot, on IV antibiotic Reason For Visit: DIABETIC ULCER OF TOE/CELLULITIS Physical Exam Vital Signs: Temp Pulse Resp BP Pulse Ox 98.2 F 78 19 154/87 H 100 06/07/20 11:38 06/07/20 11:38 06/07/20 11:38 06/07/20 11:38 06/07/20 11:38 Intake & Output 06/06/20 06/07/20 06/08/20 06:59 06:59 06:59 Intake Total 2962 2640 750 Balance 2962 2640 750 Weight 155.4 kg 161.4 kg 161.4 kg General appearance: PRESENT: obese Eye exam: PRESENT: PERRLA Respiratory exam: PRESENT: clear to auscultation chelsea Cardiovascular exam: PRESENT: +S1, +S2 GI/Abdominal exam: PRESENT: soft Neurological exam: PRESENT: alert, CN II-XII grossly intact Results Laboratory Results: 06/07/20 05:33 06/07/20 05:33 06/06/20 06/07/20 06/07/20 21:16 05:33 05:33 WBC 7.6 RBC 4.37 Hgb 10.7 L Hct 32.0 L MCV 73 L MCH 24.5 L MCHC 33.5 RDW 16.4 H Plt Count 303 Seg Neutrophils % 63.7 Sodium 136.3 L Potassium 4.1 Chloride 103 Carbon Dioxide 24 Anion Gap 9 BUN 7 Creatinine 0.70 0.72 Est GFR ( Amer) > 60 > 60 Glucose 184 H Calcium 8.6 Impressions: Foot X-Ray 06/04/20 12:12 IMPRESSION: Negative exam. No conventional radiographic evidence of osteo myelitis. Assessment & Plan - Diagnosis (1) Type 2 diabetes mellitus with foot ulcer Qualifiers: Diabetes mellitus custodial insulin use: with custodial use Qualified Code(s): E11.621 - Type 2 diabetes mellitus with foot ulcer; L97.509 - Non- pressure chronic ulcer of other part of unspecified foot with unspecified severity; Z79.4 - group home (current) use of insulin Is this a current diagnosis for this admission?: Yes (2) Cellulitis of unspecified part of limb Qualifiers: Site of cellulitis of extremity: toe Laterality: left Qualified Code(s): L03.032 - Cellulitis of left toe Is this a current diagnosis for this admission?: Yes (3) Type 2 diabetes mellitus with other skin complications Is this a current diagnosis for this admission?: Yes (4) Gangrene of left foot Is this a current diagnosis for this admission?: Yes - Time Time Spent with patient: 35 or more minutes Level of Care: IMCU Medications reviewed and adjusted accordingly: Yes Anticipated discharge: Home - Plan Summary Plan Summary: Patient will continue IV antibiotic
[2020-06-08] MEDS: PANTOPRAZOLE SODIUM 40 MG TABLET.DR PO SCH (05:34)
[2020-06-08] MEDS: PIPERACILLIN SODIUM/TAZOBACTAM 3.375 GM in NORMAL SALINE 100 ML IV SCH ×4 (05:34→21:30)
[2020-06-08] MEDS: VANCOMYCIN HCL 1,500 MG in DEXTROSE 5%-WATER 250 ML IV SCH ×3 (05:34→21:30)
[2020-06-08] MEDS: INSULIN LISPRO 100 UNIT/ML 3 ML VIAL SUBCUT SCH ×4 (07:56→21:30)
[2020-06-08] MEDS: INSULIN NPH (ISOPHANE), HUMAN 100 UNIT/ML 3 ML SUBCUT SCH ×2 (09:28→17:20)
[2020-06-08] MEDS: HYDROCHLOROTHIAZIDE 12.5 MG TABLET PO SCH (09:29)
[2020-06-08] MEDS: AMLODIPINE BESYLATE 10 MG TABLET PO SCH (09:29)
[2020-06-08] MEDS: LACTOBACILLUS ACIDOPHILUS 250 MG TAB PO SCH ×2 (09:29→17:20)
[2020-06-08] MEDS: LOSARTAN POTASSIUM 50 MG TABLET PO SCH (09:29)
[2020-06-08] MEDS: METFORMIN HCL 500 MG TABLET PO SCH ×2 (09:29→15:40)
[2020-06-08] MEDS: FERROUS SULFATE 325 MG TABLET PO SCH (09:29)
[2020-06-08] MEDS: ENOXAPARIN SODIUM INJ 40 MG/0.4 ML DISP.SYRIN SUBCUT SCH (09:36)
[2020-06-08] MEDS: NORMAL SALINE 1000 ML 1,000 ML IV PRN (10:28)
--- NOTE | 2020-06-08 15:14 | PDOC PROGRESS REPORT ---
Subjective Progress Note for:: 06/08/20 Reason For Visit: DIABETIC ULCER OF TOE/CELLULITIS Patient has no complaints, states left foot feels better Physical Exam Vital Signs: Temp Pulse Resp BP Pulse Ox 98.4 F 69 16 120/65 100 06/08/20 11:50 06/08/20 11:50 06/08/20 11:50 06/08/20 11:50 06/08/20 11:50 Intake & Output 06/07/20 06/08/20 06/09/20 06:59 06:59 06:59 Intake Total 2640 4430 610 Balance 2640 4430 610 Weight 161.4 kg 151.4 kg General appearance: PRESENT: no acute distress Musculoskeletal exam: PRESENT: other - Left foot dressing removed down to the skin and wound; wound packing removed, no foul-smelling drainage; granulation tissue filling in.: Left second toe dry, no change from yesterday; mild to moderate edema of the foot however less cellulitic changes; range of motion of foot good Results Laboratory Results: 06/07/20 05:33 06/07/20 05:33 06/06/20 13:20 Toe - Diabetic Ulcer Gram Stain - Final Impressions: Foot X-Ray 06/04/20 12:12 IMPRESSION: Negative exam. No conventional radiographic evidence of osteomyelitis. Assessment & Plan - Diagnosis (1) Diabetic infection of left foot Is this a current diagnosis for this admission?: Yes Plan: Impression: Patient is postoperative day 2 status post left ray amputation, with a stable wound, resolving sepsis; growing gram Streptococcus and Sera; range of motion of the foot Plan: 1. May be up with surgical boot 2. We will discuss addition of antifungal therapy 3. No indication for additional surgical debridement at this time. (2) Hyperglycemia Is this a current diagnosis for this admission?: Yes (3) Morbid (severe) obesity due to excess calories Is this a current diagnosis for this admission?: Yes - Time Time Spent: 30 to 50 Minutes Critical Time spent with patient: Less than 15 minutes Anticipated Discharge Disposition: Home, Self Care Anticipated Discharge Timeframe: TBD
--- NOTE | 2020-06-08 15:49 | PDOC PROGRESS REPORT ---
Subjective Progress Note for:: 06/08/20 Subjective:: Patient seen by the bedside, the wound culture grew Sera, Streptococcus Reason For Visit: DIABETIC ULCER OF TOE/CELLULITIS Physical Exam Vital Signs: Temp Pulse Resp BP Pulse Ox 98.4 F 73 16 120/65 100 06/08/20 11:50 06/08/20 14:00 06/08/20 11:50 06/08/20 11:50 06/08/20 11:50 Intake & Output 06/07/20 06/08/20 06/09/20 06:59 06:59 06:59 Intake Total 2640 4430 860 Balance 2640 4430 860 Weight 161.4 kg 151.4 kg General appearance: PRESENT: no acute distress Eye exam: PRESENT: PERRLA Respiratory exam: PRESENT: clear to auscultation chelsea Cardiovascular exam: PRESENT: +S1, +S2 GI/Abdominal exam: PRESENT: soft Neurological exam: PRESENT: alert, CN II-XII grossly intact Results Laboratory Results: 06/07/20 05:33 06/07/20 05:33 06/06/20 13:20 Toe - Diabetic Ulcer Gram Stain - Final Impressions: Foot X-Ray 06/04/20 12:12 IMPRESSION: Negative exam. No conventional radiographic evidence of osteomyelitis. Assessment & Plan - Diagnosis (1) Type 2 diabetes mellitus with foot ulcer Qualifiers: Diabetes mellitus manager intermediate insulin use: with retirement use Qualified Code(s): E11.621 - Type 2 diabetes mellitus with foot ulcer; L97.509 - Non- pressure chronic ulcer of other part of unspecified foot with unspecified severity; Z79.4 - terminal operations manager (current) use of insulin Is this a current diagnosis for this admission?: Yes (2) Cellulitis of unspecified part of limb Qualifiers: Site of cellulitis of extremity: toe Laterality: left Qualified Code(s): L03.032 - Cellulitis of left toe Is this a current diagnosis for this admission?: Yes (3) Type 2 diabetes mellitus with other skin complications Is this a current diagnosis for this admission?: Yes (4) Gangrene of left foot Is this a current diagnosis for this admission?: Yes Plan: Status post amputation of the toes, wound culture grew Sera, start Diflucan - Time Time Spent with patient: 25-34 minutes Level of Care: IMCU Medications reviewed and adjusted accordingly: Yes Anticipated discharge: Home Anticipated DC Timeframe: Other
[2020-06-09] MEDS: PIPERACILLIN SODIUM/TAZOBACTAM 3.375 GM in NORMAL SALINE 100 ML IV SCH ×2 (02:27→09:03)
[2020-06-09] MEDS: VANCOMYCIN HCL 1,500 MG in DEXTROSE 5%-WATER 250 ML IV SCH ×2 (06:54→17:51)
[2020-06-09] MEDS: PANTOPRAZOLE SODIUM 40 MG TABLET.DR PO SCH (06:54)
[2020-06-09] MEDS: INSULIN LISPRO 100 UNIT/ML 3 ML VIAL SUBCUT SCH ×4 (08:47→22:01)
[2020-06-09] MEDS: AMLODIPINE BESYLATE 10 MG TABLET PO SCH (09:03)
[2020-06-09] MEDS: LACTOBACILLUS ACIDOPHILUS 250 MG TAB PO SCH ×2 (09:03→17:49)
[2020-06-09] MEDS: HYDROCHLOROTHIAZIDE 12.5 MG TABLET PO SCH (09:03)
[2020-06-09] MEDS: METFORMIN HCL 500 MG TABLET PO SCH ×2 (09:03→17:50)
[2020-06-09] MEDS: NORMAL SALINE 1000 ML 1,000 ML IV PRN ×2 (09:03→19:05)
[2020-06-09] MEDS: LOSARTAN POTASSIUM 50 MG TABLET PO SCH (09:03)
[2020-06-09] MEDS: INSULIN NPH (ISOPHANE), HUMAN 100 UNIT/ML 3 ML SUBCUT SCH ×2 (09:04→17:49)
[2020-06-09] MEDS: FERROUS SULFATE 325 MG TABLET PO SCH (09:04)
[2020-06-09] MEDS: ENOXAPARIN SODIUM INJ 40 MG/0.4 ML DISP.SYRIN SUBCUT SCH (09:10)
--- NOTE | 2020-06-09 19:24 | PDOC PROGRESS REPORT ---
Subjective Progress Note for:: 06/09/20 Reason For Visit: DIABETIC ULCER OF TOE/CELLULITIS Physical Exam Vital Signs: Temp Pulse Resp BP Pulse Ox 98.2 F 67 13 138/83 H 99 06/09/20 11:36 06/09/20 11:36 06/09/20 11:36 06/09/20 11:36 06/09/20 11:36 Intake & Output 06/08/20 06/09/20 06/10/20 06:59 06:59 06:59 Intake Total 4430 3490 2623 Balance 4430 3490 2623 Weight 151.4 kg 150.4 kg Results Laboratory Results: 06/07/20 05:33 06/07/20 05:33 06/04/20 18:12 Blood Blood Culture - Final NO GROWTH IN 5 DAYS 06/04/20 12:25 Blood Blood Culture - Final NO GROWTH IN 5 DAYS 06/06/20 13:20 Toe - Diabetic Ulcer Gram Stain - Final 06/06/20 13:20 Toe - Diabetic Ulcer Wound Culture - Final Group C Beta Streptococcus C.albicans/C.dubliniensis No Anaerobic Organisms Impressions: Foot X-Ray 06/04/20 12:12 IMPRESSION: Negative exam. No conventional radiographic evidence of osteomyelitis. Assessment & Plan - Diagnosis (1) Gangrene of left foot Is this a current diagnosis for this admission?: Yes - Time Anticipated Discharge Disposition: Home with Home Health Anticipated Discharge Timeframe: within 48 hours - Plan Summary Plan Summary: 35-year-old female status post amputation of the left fifth toe with drainage of a large foot abscess. I have removed her dressing today and inspected the wound. It appears clean, without purulence. The erythema is decreasing. I have ordered a home wound VAC. Continue with damp to dry dressing changes twice daily in the hospital. Once her wound VAC has been approved, she is ready for discharge. She should follow-up with [facility] in 1 to 2 weeks for wound care. Surgery will sign off at this time. Please renotify with any questions or concerns.
[2020-06-10] MEDS: NORMAL SALINE 1000 ML 1,000 ML IV PRN (04:45)
[2020-06-10] MEDS: PANTOPRAZOLE SODIUM 40 MG TABLET.DR PO SCH (05:55)
[2020-06-10] MEDS: INSULIN LISPRO 100 UNIT/ML 3 ML VIAL SUBCUT SCH ×4 (09:03→21:00)
[2020-06-10] MEDS: AMLODIPINE BESYLATE 10 MG TABLET PO SCH (09:12)
[2020-06-10] MEDS: LACTOBACILLUS ACIDOPHILUS 250 MG TAB PO SCH ×2 (09:12→17:28)
[2020-06-10] MEDS: HYDROCHLOROTHIAZIDE 12.5 MG TABLET PO SCH (09:12)
[2020-06-10] MEDS: FERROUS SULFATE 325 MG TABLET PO SCH (09:12)
[2020-06-10] MEDS: INSULIN NPH (ISOPHANE), HUMAN 100 UNIT/ML 3 ML SUBCUT SCH ×2 (09:13→17:28)
[2020-06-10] MEDS: METFORMIN HCL 500 MG TABLET PO SCH ×2 (09:13→17:28)
[2020-06-10] MEDS: LOSARTAN POTASSIUM 50 MG TABLET PO SCH (09:14)
[2020-06-10] MEDS: ENOXAPARIN SODIUM INJ 40 MG/0.4 ML DISP.SYRIN SUBCUT SCH (09:14)
--- NOTE | 2020-06-10 09:15 | PDOC PROGRESS REPORT ---
Subjective Progress Note for:: 06/09/20 Subjective:: No fever or chills. No chest pain or difficulty with breathing. No nausea, vomiting, or abdominal pain. Awaiting wound vac application to her left foot amputated toes. Reason For Visit: DIABETIC ULCER OF TOE/CELLULITIS Physical Exam Vital Signs: Temp Pulse Resp BP Pulse Ox 98.2 F 67 13 138/83 H 99 06/09/20 11:36 06/09/20 11:36 06/09/20 11:36 06/09/20 11:36 06/09/20 11:36 Intake & Output 06/08/20 06/09/20 06/10/20 06:59 06:59 06:59 Intake Total 4430 3490 250 Balance 4430 3490 250 Weight 151.4 kg 150.4 kg Physical Exam: General appearance: PRESENT: appropriate in responses, morbidly obese Head exam: PRESENT: atraumatic, normocephalic Eye exam: PRESENT: conjunctiva pink. ABSENT: pallor, sclera icterus Mouth exam: PRESENT: moist Respiratory exam: PRESENT: clear to auscultation chelsea Cardiovascular exam: PRESENT: RRR, +S1, +S2. ABSENT: diastolic murmur, rubs, systolic murmur GI/Abdominal exam: PRESENT: normal bowel sounds, soft. ABSENT: distended, guarding, mass, organomegaly, rebound, tenderness. Extremities exam: ABSENT: pedal edema, s/p left 2nd and 5th toes amputation dressing satisfactory. Neurological exam: PRESENT: alert, awake, oriented to person, oriented to place, oriented to time, oriented to situation, CN II-XII grossly intact. ABSENT: motor sensory deficit Psychiatric exam: PRESENT: appropriate affect, normal mood. ABSENT: homicidal ideation, suicidal ideation Skin exam: PRESENT: dry, warm. Satisfactory left foot dressing. Results Laboratory Results: 06/07/20 05:33 06/07/20 05:33 06/04/20 12:25 Blood Blood Culture - Final NO GROWTH IN 5 DAYS 06/06/20 13:20 Toe - Diabetic Ulcer Gram Stain - Final 06/06/20 13:20 Toe - Diabetic Ulcer Wound Culture - Final Group C Beta Streptococcus C.albicans/C.dubliniensis No Anaerobic Organisms Impressions: Foot X-Ray 06/04/20 12:12 IMPRESSION: Negative exam. No conventional radiographic evidence of osteomyelitis. Assessment & Plan - Diagnosis (1) Cellulitis of foot Is this a current diagnosis for this admission?: Yes (2) Diabetic ulcer of toe Qualifiers: Diabetes mellitus type: type 2 Laterality: left Non-pressure ulcer stage: with other severity Qualified Code(s): E11.621 - Type 2 diabetes mellitus with foot ulcer; L97.528 - Non-pressure chronic ulcer of other part of left foot with other specified severity Is this a current diagnosis for this admission?: Yes (3) Uncontrolled stage 2 hypertension Is this a current diagnosis for this admission?: Yes (4) Uncontrolled type 2 diabetes mellitus Qualifiers: Glycemic state: with hyperglycemia Qualified Code(s): E11.65 - Type 2 diabetes mellitus with hyperglycemia Is this a current diagnosis for this admission?: Yes (5) Morbid (severe) obesity due to excess calories Is this a current diagnosis for this admission?: Yes - Time Time Spent with patient: 25-34 minutes Level of Care: IMCU Medications reviewed and adjusted accordingly: Yes Anticipated discharge: Home with Homehealth Anticipated DC Timeframe: within 72 hours - Inpatient Certification Based on my medical assessment, after consideration of the patient's comorbidities, presenting symptoms, or acuity I expect that the services needed warrant INPATIENT care.: Yes I certify that my determination is in accordance with my understanding of Medicare's requirements for reasonable and necessary INPATIENT services [42 CFR 412.3e].: Yes Medical Necessity: Significant Comorbidiites Make Outpatient Treatment Too Risky, Need Close Monitoring Due to Risk of Patient Decompensation, Need For IV Fluids, Need For Continuous Telemetry Monitoring, Need for IV Antibiotics, Need for Surgery, Risk of Complication if Not Cared For in Hospital, Risk of Diagnosis Which Will Require Inpatient Eval/Care/Monitoring Post Hospital Care: D/C Combo Welder Documentation - Plan Summary Plan Summary: D/C IV antibiotic coverage. No bacterial growth x 5 days of blood culture. Continue local wound care as per surgical team recommendations.
--- NOTE | 2020-06-10 18:21 | PDOC PROGRESS REPORT ---
Subjective Progress Note for:: 06/10/20 Subjective:: No fever or chills. No chest pain or difficulty with breathing. No fever or chills. Accucheck improving. Left foot wound post amputation satisfactory. No nausea, vomiting, or abdominal pain. Still awaiting wound vac device for her left foot amputated toes wound management. Reason For Visit: DIABETIC ULCER OF TOE/CELLULITIS Physical Exam Vital Signs: Temp Pulse Resp BP Pulse Ox 98.1 F 74 17 114/65 100 06/10/20 15:43 06/10/20 15:43 06/10/20 15:43 06/10/20 15:43 06/10/20 15:43 Intake & Output 06/09/20 06/10/20 06/11/20 06:59 06:59 06:59 Intake Total 3490 5520 910 Balance 3490 5520 910 Weight 150.4 kg 160.2 kg Physical Exam: General appearance: PRESENT: appropriate in responses, morbidly obese Head exam: PRESENT: atraumatic, normocephalic Eye exam: PRESENT: conjunctiva pink. ABSENT: pallor, sclera icterus Mouth exam: PRESENT: moist Respiratory exam: PRESENT: clear to auscultation [place] Cardiovascular exam: PRESENT: RRR, +S1, +S2. ABSENT: diastolic murmur, rubs, systolic murmur GI/Abdominal exam: PRESENT: normal bowel sounds, soft. ABSENT: distended, guarding, mass, organomegaly, rebound, tenderness. Extremities exam: ABSENT: pedal edema, s/p left 2nd and 5th toes amputation dressing satisfactory. Neurological exam: PRESENT: alert, awake, oriented to person, oriented to place, oriented to time, oriented to situation, CN II-XII grossly intact. ABSENT: motor sensory deficit Psychiatric exam: PRESENT: appropriate affect, normal mood. ABSENT: homicidal ideation, suicidal ideation Skin exam: PRESENT: dry, warm. Satisfactory left foot dressing. Results Laboratory Results: 06/07/20 05:33 06/07/20 05:33 06/04/20 18:12 Blood Blood Culture - Final NO GROWTH IN 5 DAYS Impressions: Foot X-Ray 06/04/20 12:12 IMPRESSION: Negative exam. No conventional radiographic evidence of osteomyelitis. Assessment & Plan - Diagnosis (1) Cellulitis of foot Is this a current diagnosis for this admission?: Yes (2) Diabetic ulcer of toe Qualifiers: Diabetes mellitus type: type 2 Laterality: left Non-pressure ulcer stage: with other severity Qualified Code(s): E11.621 - Type 2 diabetes mellitus with foot ulcer; L97.528 - Non-pressure chronic ulcer of other part of left foot with other specified severity Is this a current diagnosis for this admission?: Yes (3) Uncontrolled stage 2 hypertension Is this a current diagnosis for this admission?: Yes (4) Uncontrolled type 2 diabetes mellitus Qualifiers: Glycemic state: with hyperglycemia Qualified Code(s): E11.65 - Type 2 diabetes mellitus with hyperglycemia Is this a current diagnosis for this admission?: Yes (5) Morbid (severe) obesity due to excess calories Is this a current diagnosis for this admission?: Yes - Time Time Spent with patient: 25-34 minutes Level of Care: IMCU Medications reviewed and adjusted accordingly: Yes Anticipated discharge: Home with Homehealth Anticipated DC Timeframe: within 24 hours - Inpatient Certification Based on my medical assessment, after consideration of the patient's comorbidities, presenting symptoms, or acuity I expect that the services needed warrant INPATIENT care.: Yes I certify that my determination is in accordance with my understanding of Medicare's requirements for reasonable and necessary INPATIENT services [42 CFR 412.3e].: Yes Medical Necessity: Significant Comorbidiites Make Outpatient Treatment Too Risky, Need Close Monitoring Due to Risk of Patient Decompensation, Need For IV Fluids, Need For Continuous Telemetry Monitoring, Risk of Complication if Not Cared For in Hospital, Risk of Diagnosis Which Will Require Inpatient Eval/Care/Monitoring Post Hospital Care: D/C Safe Deposit Clerk Documentation - Plan Summary Plan Summary: Continue current medication management. Follow up on wound vac device availability. Possible d/c tomorrow.
[2020-06-11] MEDS: PANTOPRAZOLE SODIUM 40 MG TABLET.DR PO SCH (05:14)
[2020-06-11] MEDS: NORMAL SALINE 1000 ML 1,000 ML IV PRN (05:14)
[2020-06-11] MEDS: LOSARTAN POTASSIUM 50 MG TABLET PO SCH (09:34)
[2020-06-11] MEDS: LACTOBACILLUS ACIDOPHILUS 250 MG TAB PO SCH (09:34)
[2020-06-11] MEDS: AMLODIPINE BESYLATE 10 MG TABLET PO SCH (09:34)
[2020-06-11] MEDS: HYDROCHLOROTHIAZIDE 12.5 MG TABLET PO SCH (09:34)
[2020-06-11] MEDS: INSULIN NPH (ISOPHANE), HUMAN 100 UNIT/ML 3 ML SUBCUT SCH (09:34)
[2020-06-11] MEDS: METFORMIN HCL 500 MG TABLET PO SCH (09:34)
[2020-06-11] MEDS: ENOXAPARIN SODIUM INJ 40 MG/0.4 ML DISP.SYRIN SUBCUT SCH (09:35)
[2020-06-11] MEDS: INSULIN LISPRO 100 UNIT/ML 3 ML VIAL SUBCUT SCH (09:35)
[2020-06-11] MEDS: FERROUS SULFATE 325 MG TABLET PO SCH (09:35)
[2020-06-11 10:51] LABS: ABSOLUTE BASOPHILS # (AUTO) 0.1 10^3/uL (0.0-0.2); ABSOLUTE EOSINOPHILS # (AUTO) 0.2 10^3/uL (0.0-0.6); ABSOLUTE LYMPHOCYTES (AUTO) 1.5 10^3/uL (0.5-4.7); ABSOLUTE MONOCYTES (AUTO) 0.7 10^3/uL (0.1-1.4); ABSOLUTE NEUT (AUTO) 4.8 10^3/uL (1.7-8.2); BASOPHILS % (AUTO) 0.8 % (0-2); EOSINOPHILS % (AUTO) 3.1 % (0-6); HEMATOCRIT 32.5 % (36.0-47.0); HEMOGLOBIN 10.9 g/dL (12.0-15.5); LYMPHOCYTES % (AUTO) 20.9 % (13-45); MEAN CORPUSCULAR HEMOGLOBIN 24.6 pg (27.0-33.4); MEAN CORPUSCULAR HGB CONC 33.7 g/dL (32.0-36.0); MEAN CORPUSCULAR VOLUME 73 fl (80-97); MONOCYTES % (AUTO) 9.5 % (3-13); PLATELET COUNT 339 10^3/uL (150-450); RED BLOOD COUNT 4.44 10^6/uL (3.72-5.28); RED CELL DISTRIBUTION WIDTH 16.3 % (11.5-14.0); SEGMENTED NEUTROPHILS % (AUTO) 65.7 % (42-78); TOTAL CELLS COUNTED % (AUTO) 100 %; WHITE BLOOD COUNT 7.3 10^3/uL (4.0-10.5)
[2020-06-11 11:25] LABS: ANION GAP 10 (5-19); BLOOD UREA NITROGEN 7 mg/dL (7-20); CALCIUM 8.9 mg/dL (8.4-10.2); CARBON DIOXIDE 21 mmol/L (22-30); CHLORIDE 105 mmol/L (98-107); GLUCOSE 134 mg/dL (75-110); POTASSIUM 4.5 mmol/L (3.6-5.0)
--- NOTE | 2020-06-11 13:06 | PDOC DISCHARGE SUMMARY ---
Impression - Admit/DC Date/PCP Admission Date/Primary Care Provider: 06/04/20 18:12 ROBERT MITCHELL Discharge Date: 06/11/20 - Discharge Diagnosis (1) Cellulitis of foot Is this a current diagnosis for this admission?: Yes (2) Diabetic ulcer of toe Is this a current diagnosis for this admission?: Yes (3) Uncontrolled stage 2 hypertension Is this a current diagnosis for this admission?: Yes (4) Uncontrolled type 2 diabetes mellitus Is this a current diagnosis for this admission?: Yes (5) Morbid (severe) obesity due to excess calories Is this a current diagnosis for this admission?: Yes - Assessment Summary: Patient was admitted for left foot cellulitis with open 2nd and 5th toes wound and possible infection. Patient reported use of heat compress on affected foot couple of days prior to her presentation and worsening blisters formation on the foot and toes. Her blood glucose and diabetic control has been poor. She was seen in consultation by the surgicalist group and eventually taken to surgery on 06/06/2020 with left 2nf and 5th toes amputation. Post operatively remain stable. Blood culture was reported no growth after 5 days of incubation. Her tissue pathology reported evidence of osteomyelitis in 2nd left toe with viable margin. She was treated with antibiotics for the duration of her blood culture period. She remain afebrile in the lst 72 hours. She will be discharged home [facility] service to manage her surgical wound on wound vac. she will follow up in the office as instructed upon discharge. - Additional Information Resuscitation Status: Full Code Discharge Diet: Cardiac, Diabetic Discharge Activity: Activity As Tolerated Referrals: ROBERT MITCHELL MD [Primary Care Provider] - Home Medications: Metformin HCl 1,000 mg PO BID #60 tablet 11/16/18 Amlodipine Besylate [Norvasc 10 mg Tablet] 10 mg PO DAILY 06/04/20 Cyanocobalamin (Vitamin B-12) [Vitamin B-12] 50 mcg PO DAILY 06/04/20 Ferrous Sulfate [Feosol 325 mg Tablet] 325 mg PO DAILY 06/04/20 Hydrochlorothiazide [Hydrodiuril 12.5 mg Tablet] 12.5 mg PO DAILY 06/04/20 Insulin NPH Human Isophane [Novolin N Flexpen] 30 units SQ QPM 06/04/20 Insulin NPH Human Isophane [Novolin N Flexpen] 50 units SQ QAM 06/04/20 Insulin Regular, Human [Novolin R] 0 units SQ .PERSLIDINGSCALE MDD AT LUNCH 06/04/20 Irbesartan 300 mg PO DAILY 06/04/20 Lactobacillus Acidophilus/Fos [Acidophilus Probiotic Tablet] 1 tab PO BID 06/04/20 History of Present Illiness History of Present Illness: AAMIR GUSMAN is a 35 year old female patient known to my practice who presented to the ED with several weeks of left foot and leg pain. Patient reported usage of warm compress on her left foot for pain. She subsequently developed blister lesion on her pinky toe that eventually developed into a sore. Patient reported development of warmth and swelling over her left foot. There is development of black discoloration over her second toe with increasing pain that prompted her coming to the ED. She denied any definite fever or elevated temperature but admitted to intermittent chills. She has history of diabetes mellitus type 2 and admitted to poor glycemic control. Her medication and dietary compliance remain a concern. She denied any chest pain, abdominal pain, nausea, or vomiting. Her morbidities are as listed below. She was advised hospitalization for further evaluation and management. Hospital Course Hospital Course: Patient was admitted for left foot cellulitis with open 2nd and 5th toes wound and possible infection. Patient reported use of heat compress on affected foot couple of days prior to her presentation and worsening blisters formation on the foot and toes. Her blood glucose and diabetic control has been poor. She was seen in consultation by the surgicalist group and eventually taken to surgery on 06/06/2020 with left 2nf and 5th toes amputation. Post operatively remain stable. Blood culture was reported no growth after 5 days of incubation. Her tissue pathology reported evidence of osteomyelitis in 2nd left toe with viable margin. She was treated with antibiotics for the duration of her blood culture period. She remain afebrile in the lst 72 hours. She will be discharged home with [employer] service to manage her surgical wound on wound vac. she will follow up in the office as instructed upon discharge. Physical Exam Vital Signs: Temp Pulse Resp BP Pulse Ox 98.3 F 67 16 135/70 H 98 06/11/20 11:43 06/11/20 11:43 06/11/20 11:43 06/11/20 11:43 06/11/20 11:43 Intake & Output 09/06/11/20 06/12/20 06:59 06:59 06:59 Intake Total 5588 5366 Balance 5520 2685 Weight 160.2 kg 160.2 kg General appearance: PRESENT: appropriate in responses, morbidly obese Head exam: PRESENT: atraumatic, normocephalic Eye exam: PRESENT: conjunctiva pink. ABSENT: pallor, sclera icterus Mouth exam: PRESENT: moist Respiratory exam: PRESENT: clear to auscultation [place] Cardiovascular exam: PRESENT: RRR, +S1, +S2. ABSENT: diastolic murmur, rubs, systolic murmur GI/Abdominal exam: PRESENT: normal bowel sounds, soft. ABSENT: distended, guarding, mass, organomegaly, rebound, tenderness. Extremities exam: ABSENT: pedal edema, s/p left 2nd and 5th toes amputation dressing satisfactory. Neurological exam: PRESENT: alert, awake, oriented to person, oriented to place, oriented to time, oriented to situation, CN II-XII grossly intact. ABSENT: motor sensory deficit Psychiatric exam: PRESENT: appropriate affect, normal mood. ABSENT: homicidal ideation, suicidal ideation Skin exam: PRESENT: dry, warm. Satisfactory left foot dressing. Results Laboratory Results: WBC 7.3 10^3/uL (4.0-10.5) 06/11/20 10:23 RBC 4.44 10^6/uL (3.72-5.28) 06/11/20 10:23 Hgb 10.9 g/dL (12.0-15.5) L 06/11/20 10:23 Hct 32.5 % (36.0-47.0) L 06/11/20 10:23 MCV 73 fl (80-97) L 06/11/20 10:23 MCH 24.6 pg (27.0-33.4) L 06/11/20 10:23 MCHC 33.7 g/dL (32.0-36.0) 06/11/20 10:23 RDW 16.3 % (11.5-14.0) H 06/11/20 10:23 Plt Count 339 10^3/uL (150-450) 06/11/20 10:23 Lymph % (Auto) 20.9 % (13-45) 06/11/20 10:23 Rains % (Auto) 9.5 % (3-13) 06/11/20 10:23 Eos % (Auto) 3.1 % (0-6) 06/11/20 10:23 Baso % (Auto) 0.8 % (0-2) 06/11/20 10:23 Absolute Neuts (auto) 4.8 10^3/uL (1.7-8.2) 06/11/20 10:23 Absolute Lymphs (auto) 1.5 10^3/uL (0.5-4.7) 06/11/20 10:23 Absolute Monos (auto) 0.7 10^3/uL (0.1-1.4) 06/11/20 10:23 Absolute Eos (auto) 0.2 10^3/uL (0.0-0.6) 06/11/20 10:23 Absolute Basos (auto) 0.1 10^3/uL (0.0-0.2) 06/11/20 10:23 Seg Neutrophils % 65.7 % (42-78) 06/11/20 10:23 Sodium 136.0 mmol/L (137-145) L 06/11/20 10:23 Potassium 4.5 mmol/L (3.6-5.0) 06/11/20 10:23 Chloride 105 mmol/L (98-107) 06/11/20 10:23 Carbon Dioxide 21 mmol/L (22-30) L 06/11/20 10:23 Anion Gap 10 (5-19) 06/11/20 10:23 BUN 7 mg/dL (7-20) 06/11/20 10:23 Creatinine 0.70 mg/dL (0.52-1.25) 06/11/20 10:23 Est GFR ( Amer) > 60 (>60) 06/11/20 10:23 Est GFR (MDRD) Non-Af > 60 (>60) 06/11/20 10:23 Glucose 134 mg/dL (75-110) H 06/11/20 10:23 POC Glucose 130 mg/dL (70-110) H 06/11/20 11:43 Hemoglobin A1c % 10.7 % (4.7-6.0) H 06/05/20 06:04 Lactic Acid 1.9 mmol/L (0.7-2.1) 06/04/20 12:25 Calcium 8.9 mg/dL (8.4-10.2) 06/11/20 10:23 Total Bilirubin 0.8 mg/dL (0.2-1.3) 06/05/20 06:04 Direct Bilirubin 0.4 mg/dL (0.0-0.4) 06/05/20 06:04 Neonat Total Bilirubin Not Reportable 06/05/20 06:04 Neonat Direct Bilirubin Not Reportable 06/05/20 06:04 Neonat Indirect Bili Not Reportable 06/05/20 06:04 AST 14 U/L (14-36) 06/05/20 06:04 ALT 9 U/L (<35) 06/05/20 06:04 Alkaline Phosphatase 71 U/L (38-126) 06/05/20 06:04 Total Protein 6.8 g/dL (6.3-8.2) 06/05/20 06:04 Albumin 3.2 g/dL (3.5-5.0) L 06/05/20 06:04 Triglycerides 149 mg/dL (<150) 06/05/20 06:04 Cholesterol 138.83 mg/dL (0-200) 06/05/20 06:04 LDL Cholesterol Direct 81 mg/dL (<100) 06/05/20 06:04 VLDL Cholesterol 30.0 mg/dL (10-31) 06/05/20 06:04 HDL Cholesterol 30 mg/dL (>40) L 06/05/20 06:04 Urine Color YELLOW 06/04/20 17:30 Urine Appearance CLEAR 06/04/20 17:30 Urine pH 6.0 (5.0-9.0) 06/04/20 17:30 Ur Specific Donora 1.014 06/04/20 17:30 Urine Protein NEGATIVE mg/dL (NEGATIVE) 06/04/20 17:30 Urine Glucose (UA) 150 mg/dL (NEGATIVE) H 06/04/20 17:30 Urine Ketones NEGATIVE mg/dL (NEGATIVE) 06/04/20 17:30 Urine Blood NEGATIVE (NEGATIVE) 06/04/20 17:30 Urine Nitrite NEGATIVE (NEGATIVE) 06/04/20 17:30 Urine Bilirubin NEGATIVE (NEGATIVE) 06/04/20 17:30 Urine Urobilinogen 2.0 mg/dL (<2.0) H 06/04/20 17:30 Ur Leukocyte Esterase NEGATIVE (NEGATIVE) 06/04/20 17:30 Urine WBC (Auto) 0 /HPF 06/04/20 17:30 Urine RBC (Auto) 1 /HPF 06/04/20 17:30 Squamous Epi Cells Auto 1 /HPF 06/04/20 17:30 Urine Mucus (Auto) RARE /LPF 06/04/20 17:30 Urine Ascorbic Acid NEGATIVE (NEGATIVE) 06/04/20 17:30 Urine HCG, Qual NEGATIVE (NEGATIVE) 06/04/20 17:30 Time Trough Drawn 211506/06/20 21:16 Vancomycin Trough 11.5 ug/mL (5.0-20.0) 06/06/20 21:16 SARS-CoV-2 (PCR) NEGATIVE (NEGATIVE) 06/05/20 15:22 Impressions: Foot X-Ray 06/04/20 12:12 IMPRESSION: Negative exam. No conventional radiographic evidence of osteomyelitis. Plan Health Concerns: Wound management with poorly controlled diabetes mellitus. Plan of Treatment: Wound management with wound vac, improvement in medication and dietary compliance. Goals: Reduce readmission risk level with close monitoring. She will benefit from remote patient monitoring for her glycemic control if approved by her insurance. Time Spent: Greater than 30 Minutes Stroke Is this a Stroke Patient?: No Acute Heart Failure Is this a Heart Failure Patient?: No
[2020-06-11 13:28] VITALS: BP 133/81
== END 2020-06-11 14:36 | disposition home health service (06) | DRG 256 ==
LOC: ER 10:33 → EH 18:12 → 3S 22:27
PROVIDERS: ADMIT Internal Medicine Geriatric Medicine; ATTEND Internal Medicine Geriatric Medicine
PROC: 0Y6Y0Z0 Detachment at Left 5th Toe, Complete, Open Approach (ICD-10-PCS; principal; 2020-06-06 11:30)
DX: E11.52 Type 2 diabetes mellitus with diabetic peripheral angiopathy with gangrene (principal); I96 Gangrene, not elsewhere classified; L97.528 Non-pressure chronic ulcer of other part of left foot with other specified severity; L03.116 Cellulitis of left lower limb; Z68.42 Body mass index [BMI] 45.0-49.9, adult; B37.89 Other sites of candidiasis; B95.4 Other streptococcus as the cause of diseases classified elsewhere; E11.621 Type 2 diabetes mellitus with foot ulcer; E11.65 Type 2 diabetes mellitus with hyperglycemia; E66.01 Morbid (severe) obesity due to excess calories; I10 Essential (primary) hypertension; F17.210 Nicotine dependence, cigarettes, uncomplicated; Z79.4 Long term (current) use of insulin; Z79.899 Other long term (current) drug therapy; Z20.828 Contact with and (suspected) exposure to other viral communicable diseases
CPT/HCPCS: 01480; 36415; 80048; 80053; 80061; 80202; 81001; 81025; 82565; 82962; 83036; 83605; 85025; 87040; 87070; 87075; 87077; 87205; 87635; 88305; 88311; 93005; 93010; 93306; 96365; 96366; 96367; 99285; C9803; J1650; J1815; J2250; J2543; J2704; J3010; J3370; J3490; J7030; J7050; J7060

== ENCOUNTER 2020-06-29 13:42 | Emergency (ER) | payer OTHER ==
[2020-06-29] MEDS ORDERED: NORMAL SALINE 1000 ML 1,000 ML IV ONE (14:07)
--- NOTE | 2020-06-29 14:07 | ER Document Report ---
ED Medical Screen (RME) - General Chief Complaint: Foot Pain Stated Complaint: LEFT TOE PAIN/POST AMPUTATION Time Seen by Provider: 06/29/20 13:56 Primary Care Provider: ROBERT MITCHELL MD [Primary Care Provider] - Follow up as needed Notes: Patient is a 35-year-old female who presents emergency department with a chief complaint of left foot pain that radiates up her left leg. About 3 weeks ago, the patient had surgery for a diabetic foot ulcer. She also has cellulitis. Patient denies any fever, body aches, or chills. Patient has a wound VAC to her left foot. Exam: Wound VAC noted. Small amount of purulent drainage noted to webspace of fifth and fourth digit and left toe. I have greeted and performed a rapid initial assessment of this patient. A comprehensive ED assessment and evaluation of the patient, analysis of test results and completion of medical decision making process will be conducted by an additional ED providers. TRAVEL OUTSIDE OF THE [place] IN LAST 30 DAYS: No - Related Data Allergies/Adverse Reactions: No Known Allergies Allergy (Verified 06/29/20 13:50) Past Medical History - Social History Chew tobacco use (# tins/day): No Drug Abuse: None - Past Medical History Cardiac Medical History: Reports: Hx Hypertension Denies: Hx Coronary Artery Disease, Hx Heart Attack Pulmonary Medical History: Denies: Hx Asthma, Hx Bronchitis, Hx COPD, Hx Pneumonia Neurological Medical History: Denies: Hx Cerebrovascular Accident, Hx Seizures Endocrine Medical History: Reports: Hx Diabetes Mellitus Type 2 Renal/ Medical History: Denies: Hx Peritoneal Dialysis Musculoskeltal Medical History: Denies Hx Arthritis Psychiatric Medical History: Denies: Hx Depression Past Surgical History: Reports: Hx Gynecologic Surgery - D&C 2019 - Immunizations Hx Diphtheria, Pertussis, Tetanus Vaccination: No Physical Exam - Vital signs Vitals: Temp Pulse Resp BP Pulse Ox 98.9 F 111 H 20 155/96 H 99 06/29/20 13:48 06/29/20 13:48 06/29/20 13:48 06/29/20 13:48 06/29/20 13:48 Course - Vital Signs Vital signs: Temp Pulse Resp BP Pulse Ox 98.9 F 111 H 20 155/96 H 99 06/29/20 13:48 06/29/20 13:48 06/29/20 13:48 06/29/20 13:48 06/29/20 13:48 Doctor's Discharge - Discharge Referrals: ROBERT MITCHELL MD [Primary Care Provider] - Follow up as needed
[2020-06-29 14:55] LABS: ALKALINE PHOSPHATASE 80 U/L (38-126); ANION GAP 13 (5-19); ASPARTATE AMINO TRANSFERASE 15 U/L (14-36); BILIRUBIN,DIRECT 0.3 mg/dL (0.0-0.4); BILIRUBIN,TOTAL 0.4 mg/dL (0.2-1.3); BLOOD UREA NITROGEN 11 mg/dL (7-20); CALCIUM 9.6 mg/dL (8.4-10.2); CARBON DIOXIDE 23 mmol/L (22-30); CHLORIDE 99 mmol/L (98-107); GLUCOSE 231 mg/dL (75-110); POTASSIUM 4.3 mmol/L (3.6-5.0); TOTAL PROTEIN 8.5 g/dL (6.3-8.2)
[2020-06-29 14:56] LABS: ABSOLUTE BASOPHILS # (AUTO) 0.1 10^3/uL (0.0-0.2); ABSOLUTE EOSINOPHILS # (AUTO) 0.1 10^3/uL (0.0-0.6); ABSOLUTE LYMPHOCYTES (AUTO) 2.2 10^3/uL (0.5-4.7); ABSOLUTE MONOCYTES (AUTO) 0.6 10^3/uL (0.1-1.4); ABSOLUTE NEUT (AUTO) 4.6 10^3/uL (1.7-8.2); BASOPHILS % (AUTO) 0.7 % (0-2); EOSINOPHILS % (AUTO) 1.8 % (0-6); HEMATOCRIT 33.1 % (36.0-47.0); HEMOGLOBIN 11.4 g/dL (12.0-15.5); MEAN CORPUSCULAR HEMOGLOBIN 24.7 pg (27.0-33.4); MEAN CORPUSCULAR HGB CONC 34.6 g/dL (32.0-36.0); MEAN CORPUSCULAR VOLUME 71 fl (80-97); MONOCYTES % (AUTO) 7.7 % (3-13); PLATELET COUNT 377 10^3/uL (150-450); RED BLOOD COUNT 4.63 10^6/uL (3.72-5.28); RED CELL DISTRIBUTION WIDTH 16.7 % (11.5-14.0); SEGMENTED NEUTROPHILS % (AUTO) 60.8 % (42-78); TOTAL CELLS COUNTED % (AUTO) 100 %; WHITE BLOOD COUNT 7.5 10^3/uL (4.0-10.5)
[2020-06-29 15:02] LABS: PROTHROMBIN TIME 13.4 SEC (11.4-15.4)
--- NOTE | 2020-06-29 15:03 | RADIOLOGY REPORT (SQ) ---
EXAM DESCRIPTION: FOOT LEFT COMPLETE IMAGES COMPLETED DATE/TIME: 06/29/2020 1:41 pm REASON FOR STUDY: Left foot pain; eval osteomyelitis COMPARISON: 06/04/2020 NUMBER OF VIEWS: Three views. TECHNIQUE: AP, lateral and oblique radiographic images acquired of the left foot. LIMITATIONS: None. FINDINGS: MINERALIZATION: Normal. BONES: There is been interval resection of the distal metaphysis 5th digit metatarsal and distal phal anges. Distal amputation site demonstrates mild lucency probably postsurgical change. No other lyti c or blastic bone lesion. Moderate osteoarthritis of the midfoot. Small plantar calcaneal spur and calcifications of the plantar fascia, stable. JOINTS: No effusions. SOFT TISSUES: There is soft tissue thickening and edema overlying the 5th digit, consistent with rece nt surgical procedure. Diffuse subcutaneous edema. OTHER: No other significant finding. IMPRESSION: Interval amputation of the distal 5th digit metatarsal and phalanges. Expected postoper ative changes. Soft tissue swelling. No radiographic evidence of osteomyelitis. TECHNICAL DOCUMENTATION: JOB ID: [id number] 2010 [employer]- All Rights Reserved Reading location - IP/workstation name: [email or web address]
--- NOTE | 2020-06-29 15:04 | ER Document Report ---
ED General - General Chief Complaint: Foot Pain Stated Complaint: LEFT TOE PAIN/POST AMPUTATION Time Seen by Provider: 06/29/20 13:56 Primary Care Provider: ROBERT MITCHELL MD [Primary Care Provider] - Follow up as needed TRAVEL OUTSIDE OF THE [place] IN LAST 30 DAYS: No - HPI Notes: 35-year-old female presents with left foot pain. Patient underwent amputation of her left fifth toe on 06/06 for infected diabetic ulcer. She states she has been doing well outpatient. She has a wound vac in place, home health has been changing every M//. She states that she has been ambulatory except for yesterday due to new pain. She states she has pain to the top of her left foot and it radiates upwards. She describes the pain as hurting. She states that she had a fever yesterday, temperature 99F. No increased amount of fluid into the wound vac. She sees her surgeon tomorrow for follow-up. She is not currently on any antibiotics. States her second toe has been healing well. - Related Data Allergies/Adverse Reactions: No Known Allergies Allergy (Verified 06/29/20 13:50) Past Medical History - General Information source: Patient - Social History Smoking Status: Never Smoker Chew tobacco use (# tins/day): No Drug Abuse: None Family History: Reviewed & Not Pertinent, Hypertension Patient has homicidal ideation: No - Past Medical History Cardiac Medical History: Reports: Hx Hypertension Denies: Hx Coronary Artery Disease, Hx Heart Attack Pulmonary Medical History: Denies: Hx Asthma, Hx Bronchitis, Hx COPD, Hx Pneumonia Neurological Medical History: Denies: Hx Cerebrovascular Accident, Hx Seizures Endocrine Medical History: Reports: Hx Diabetes Mellitus Type 2 Renal/ Medical History: Denies: Hx Peritoneal Dialysis Musculoskeletal Medical History: Denies Hx Arthritis Psychiatric Medical History: Denies: Hx Depression Past Surgical History: Reports: Hx Gynecologic Surgery - D&C 2019 - Immunizations Hx Diphtheria, Pertussis, Tetanus Vaccination: No Review of Systems - Review of Systems Constitutional: Fever EENT: No symptoms reported Cardiovascular: No symptoms reported Respiratory: No symptoms reported Gastrointestinal: No symptoms reported Genitourinary: No symptoms reported Musculoskeletal: See HPI Skin: See HPI Hematologic/Lymphatic: No symptoms reported Neurological/Psychological: denies: Weakness, Numbness Physical Exam - Vital signs Vitals: Temp Pulse Resp BP Pulse Ox 98.9 F 111 H 20 155/96 H 99 06/29/20 13:48 06/29/20 13:48 06/29/20 13:48 06/29/20 13:48 06/29/20 13:48 - General General appearance: Appears well, Alert In distress: None - HEENT Head: Normocephalic, Atraumatic Extraocular movements intact: Yes Pupils: PERRL - Respiratory Respiratory status: No respiratory distress - Cardiovascular Rhythm: Regular Pulses: Normal: Dorsalis pedis Normal capillary refill: Yes - Abdominal Inspection: Obese - Extremities Notes: There is mild swelling to the dorsum of the left foot, there is no erythema or increased warmth. Mild tenderness to the distal left calf. A wound VAC is in place, it is draining a clear fluid. The visible wound appears to have granulation tissue, no montrell purulence. No tenderness when palpating to the wound. Intact range of motion to left foot/ankle - Neurological Neuro grossly intact: Yes Cognition: Normal Orientation: AAOx4 - Psychological Associated symptoms: Normal affect - Skin Skin Temperature: Warm Notes: Evidence of a well healed ulcer to left second toe Course - Re-evaluation Re-evalutation: 35-year-old female status post fifth metatarsal amputation on 06/06 here with new pain to her foot, onset yesterday. Patient is afebrile, hemodynamically stable, well-appearing, nontoxic. There is some mild swelling to the dorsum of the left foot, there is no erythema or increased warmth to suggest a cellulitis. Visible wound appears to be well-healing, no montrell purulence, no tenderness to the wound. Given her recent surgery, will obtain ultrasound to assess for DVT. Via the triage process she had labs and x-ray done. No leukocytosis or left shift, electrolytes within normal limits, no elevation of lactic acid. X-ray does not demonstrate acute changes suggestive of osteomyelitis at this time. Toradol ordered for pain. 06/29/20 18:23 Ultrasound is negative for DVT. I updated the patient on results. Heart rate 84. Given that she has had a new onset swelling, it is possible that may be an early infection is taking place. Not have a concern for a severe deep space infection at that time. I prescribed her Keflex. Encouraged her to please keep her surgical follow-up appointment tomorrow and to discuss continuation of antibiotics. Return precautions given, patient stable at time of discharge. - Vital Signs Vital signs: Temp Pulse Resp BP Pulse Ox 98.9 F 111 H 16 134/87 H 100 06/29/20 13:48 06/29/20 13:48 06/29/20 17:31 06/29/20 17:31 06/29/20 17:31 - Laboratory Result Diagrams: 06/29/20 14:17 06/29/20 14:17 Laboratory results interpreted by me: 06/29/20 06/29/20 14:17 14:17 Hgb 11.4 L Hct 33.1 L MCV 71 L MCH 24.7 L RDW 16.7 H Sodium 135.4 L Glucose 231 H Total Protein 8.5 H - Diagnostic Test Radiology reviewed: Image reviewed, Reports reviewed Discharge - Discharge Clinical Impression: Localized swelling of left foot Disposition: HOME, SELF-CARE Additional Instructions: Please follow-up with your surgeon as planned tomorrow. Have wrote for a course of Keflex for possible early infection. Please discuss this tomorrow. Please return to the emergency department for any concerning worsening symptoms. Prescriptions: Cephalexin Monohydrate [Keflex 500 mg Capsule] 500 mg PO Q6H 5 Days #20 capsule Referrals: ROBERT MITCHELL MD [Primary Care Provider] - Follow up as needed
[2020-06-29] MEDS ORDERED: KETOROLAC TROMETHAMINE INJ/PF 30 MG/1 ML SDV IV ONE (15:15)
--- NOTE | 2020-06-29 18:15 | RADIOLOGY REPORT (SQ) ---
EXAM DESCRIPTION: VENOUS UNILATERAL LOWER IMAGES COMPLETED DATE/TIME: 06/29/2020 4:56 pm REASON FOR STUDY: LEFT LE PAIN. Recent left 5th digit amputation. COMPARISON: None. TECHNIQUE: Dynamic and static perales scale and color images acquired of the left leg venous system. Se lected spectral images acquired with additional compression and augmentation maneuvers. The contralat eral common femoral vein and saphenofemoral junction were also imaged. Images stored on PACS. LIMITATIONS: None. FINDINGS: COMMON FEMORAL: Normal phasicity, compression and augmentation. No visualized echogenic ma terial on perales scale. No defects on color images. FEMORAL: Normal compression and augmentation. No visualized echogenic material on perales scale. No defe cts on color images. POPLITEAL: Normal compression, augmentation. No visualized echogenic material on preales scale. No defec ts on color images. CALF VESSELS: Normal compression, augmentation. No visualized echogenic material on perales scale. No de fects on color images. GSV and SSV: Normal compression, augmentation. No visualized echogenic material on perales scale. No def ects on color images. ANY DEEP VENOUS INSUFFICIENCY: Not evaluated. ANY EVIDENCE OF POPLITEAL CYST: No. OTHER: There is an enlarged left inguinal lymph node measuring 4.6 x 2 x 3.8 cm. This has a thickene d cortex loss of normal fatty hilum. Normal vasculature. CONTRALATERAL COMMON FEMORAL VEIN AND SAPHENOFEMORAL JUNCTION: Normal phasicity, compression and augmentation. No visualized echogenic material on perales scale. No de fects on color images. IMPRESSION: 1. No DVT or SVT in the left lower extremity. 2. Enlarged left inguinal lymph node with thickened cortex. Given patient's recent surgical procedur e this is likely reactive. A follow-up ultrasound in 6-8 weeks could be performed to confirm resolut ion. TECHNICAL DOCUMENTATION: JOB ID: [id number] 2010 [employer]- All Rights Reserved Reading location - IP/workstation name: [email or web address]
[2020-06-29 18:33] VITALS: BP 146/93
== END 2020-06-29 18:30 | disposition home or self-care (01) ==
LOC: ER 13:42
DX: R22.42 Localized swelling, mass and lump, left lower limb (principal); M79.672 Pain in left foot; R50.9 Fever, unspecified; I10 Essential (primary) hypertension; E11.9 Type 2 diabetes mellitus without complications; Z89.422 Acquired absence of other left toe(s)
CPT/HCPCS: 99285; 96361; 96374; 36415; 87040; 83605; 85025; 85610; 80053; 93971; 73630; J1885; J7030

== ENCOUNTER → 2020-08-04 | Outpatient (CLI) | payer OTHER ==
--- NOTE | 2020-08-04 16:12 | RADIOLOGY REPORT (SQ) ---
EXAM DESCRIPTION: ARTERIAL LOWER EXTREM BILAT IMAGES COMPLETED DATE/TIME: 08/04/2020 4:00 pm REASON FOR STUDY: LT FOOT ULCER L97.522 NON-PRS CHRONIC ULCER OTH PRT LEFT FOOT W FAT LAYER COMPARISON: None. TECHNIQUE: Dynamic and static perales scale and color images acquired of the lower extremity arteries. Additional selected spectral images recorded. ABIs recorded. LIMITATIONS: None. FINDINGS: RIGHT LEG: ABIS: Normal, over 1.0. INFLOW ARTERIES: Normal, no obstruction evident. FEMORAL ARTERIES:Multiphasic waveforms. Normal, no velocity elevation to suggest focal stenosis. Norm al color Doppler evaluation. No aneurysm. POPLITEAL ARTERY:Multiphasic waveforms. Normal, no velocity elevation to suggest focal stenosis. Norm al color Doppler evaluation. No aneurysm. PATENT TIBIOPERONEAL TRUNK AND 3 VESSEL RUNOFF: Yes, normal vessels. TBI: Not performed. OTHER: No other significant finding. LEFT LEG: ABIS: Normal, over 1.0. INFLOW ARTERIES: Normal, no obstruction evident. FEMORAL ARTERIES:Multiphasic waveforms. Normal, no velocity elevation to suggest focal stenosis. Norm al color Doppler evaluation. No aneurysm. POPLITEAL ARTERY:Multiphasic waveforms. Normal, no velocity elevation to suggest focal stenosis. Norm al color Doppler evaluation. No aneurysm. PATENT TIBIOPERONEAL TRUNK AND 3 VESSEL RUNOFF: Yes, normal vessels. TBI: Not performed. OTHER: No other significant finding. IMPRESSION: NORMAL BILATERAL LOWER EXTREMITY ARTERIAL DOPPLER WITH ABIs. COMMENT: KILEY NORMAL: Greater than 1.0 MINIMAL DISEASE: 0.9 to 1.0 CLAUDICATION: 0.5 to 0.9 SEVERE ARTERIAL DISEASE: Less than 0.5 [facility] NORMAL: Greater than 1.0 (1.2 If Heavy Calcifications) NORMAL TO MILD ISCHEMIA: 0.8 to 1.0 MODERATE ISCHEMIA: 0.4 to 0.8 SEVERE ISCHEMIA: Less than 0.4 TECHNICAL DOCUMENTATION: JOB ID: [id number] 2010 [employer]- All Rights Reserved Reading location - IP/workstation name: [email or web address]
--- NOTE | 2020-08-04 16:14 | RADIOLOGY REPORT (SQ) ---
EXAM DESCRIPTION: PHYSIO ARTERIAL LTD COMPLETE DATE/TIME: 08/04/2020 4:00 pm REASON FOR STUDY: LT FOOT ULCER L97.522 NON-PRS CHRONIC ULCER OTH PRT LEFT FOOT W FAT LAYER FINDINGS: Please see combined report for performance of procedure and radiologic supervision and int erpretation. IMPRESSION: Please see combined report for performance of procedure and radiologic supervision and i nterpretation. Reading location - IP/workstation name: [email or web address]
== END ==
LOC: SP 14:54
PROVIDERS: ATTEND Preventive Medicine Undersea and Hyperbaric Medicine
DX: L97.522 Non-pressure chronic ulcer of other part of left foot with fat layer exposed (principal)
CPT/HCPCS: 93922; 93925

== ENCOUNTER 2020-08-14 14:01 | Inpatient (IN) | payer OTHER ==
[2020-08-14] MEDS ORDERED: VANCOMYCIN HCL INJ 1000 MG VIAL IV ONE (14:57)
[2020-08-14] MEDS ORDERED: PIPERACILLIN/TAZOBACTAM 3.375 GM VIAL IV ONE (14:57)
--- NOTE | 2020-08-14 15:00 | ER Document Report ---
ED Medical Screen (RME) - General Chief Complaint: Abscess Stated Complaint: POSSIBLE ABSCESS/FEVER Time Seen by Provider: 08/14/20 14:41 Primary Care Provider: KACY MCKEON DPM [Primary Care Provider] - Follow up as needed TRAVEL OUTSIDE OF THE [place] IN LAST 30 DAYS: No - HPI Notes: 08/14/20 14:58 35-year-old female with past medical history of diabetes and osteomyelitis of t he left foot to the emergency department from wound care with Dr. Mckeon for complaints of infection to the left foot. She initially had her left second and fifth toe amputated in May by Dr. Day. She is on antibiotics but has not recently been on any. She is been going to the wound care clinic with Dr. Mckeon. She initially had a wound VAC but is now doing more regular dressing changes. She states earlier in the week she started to develop a fever. T-max was 103. She states also that she started to notice increased swelling and pain in the left foot. She states when she went to see Dr. Mckeon today he feels like she may be has another abscess in the wound. Brief medical screening exam patient has erythema, edema, and warmth to the dorsum of the left foot. Noted per surgical wound to the lateral foot with drainage. Noted vital signs with a heart rate of 139. Concern for possible sepsis here. Patient is nontoxic in appearance. Went ahead and started sepsis protocol. I performed a brief medical screening exam on the patient determined that the patient needs further evaluation and management by main side provider. I have placed initial orders to help expedite care. - Related Data Allergies/Adverse Reactions: No Known Allergies Allergy (Verified 08/14/20 14:40) Past Medical History - Social History Chew tobacco use (# tins/day): No Drug Abuse: None - Past Medical History Cardiac Medical History: Reports: Hx Hypertension Denies: Hx Coronary Artery Disease, Hx Heart Attack Pulmonary Medical History: Denies: Hx Asthma, Hx Bronchitis, Hx COPD, Hx Pneumonia Neurological Medical History: Denies: Hx Cerebrovascular Accident, Hx Seizures Endocrine Medical History: Reports: Hx Diabetes Mellitus Type 2 Renal/ Medical History: Denies: Hx Peritoneal Dialysis Musculoskeltal Medical History: Denies Hx Arthritis Psychiatric Medical History: Denies: Hx Depression Past Surgical History: Reports: Hx Gynecologic Surgery - D&C 2019 - Immunizations Hx Diphtheria, Pertussis, Tetanus Vaccination: No Physical Exam - Vital signs Vitals: Temp Pulse Resp BP Pulse Ox 99.3 F 139 H 18 139/79 H 100 08/14/20 14:05 08/14/20 14:05 08/14/20 14:05 08/14/20 14:05 08/14/20 14:05 Course - Vital Signs Vital signs: Temp Pulse Resp BP Pulse Ox 99.3 F 139 H 18 139/79 H 100 08/14/20 14:05 08/14/20 14:05 08/14/20 14:05 08/14/20 14:05 08/14/20 14:05 Doctor's Discharge - Discharge Referrals: KACY MCKEON DPM [Primary Care Provider] - Follow up as needed
[2020-08-14 15:28] LABS: ABSOLUTE EOSINOPHILS # (AUTO) 0.1 10^3/uL (0.0-0.6); ABSOLUTE LYMPHOCYTES (AUTO) 1.8 10^3/uL (0.5-4.7); ABSOLUTE MONOCYTES (AUTO) 1.2 10^3/uL (0.1-1.4); ABSOLUTE NEUT (AUTO) 8.8 10^3/uL (1.7-8.2); BASOPHILS % (AUTO) 0.3 % (0-2); EOSINOPHILS % (AUTO) 0.5 % (0-6); HEMATOCRIT 27.5 % (36.0-47.0); HEMOGLOBIN 9.2 g/dL (12.0-15.5); LYMPHOCYTES % (AUTO) 15.6 % (13-45); MEAN CORPUSCULAR HEMOGLOBIN 23.2 pg (27.0-33.4); MEAN CORPUSCULAR HGB CONC 33.4 g/dL (32.0-36.0); MEAN CORPUSCULAR VOLUME 70 fl (80-97); MONOCYTES % (AUTO) 9.7 % (3-13); PLATELET COUNT 471 10^3/uL (150-450); RED BLOOD COUNT 3.95 10^6/uL (3.72-5.28); RED CELL DISTRIBUTION WIDTH 17.4 % (11.5-14.0); SEGMENTED NEUTROPHILS % (AUTO) 73.9 % (42-78); TOTAL CELLS COUNTED % (AUTO) 100 %; WHITE BLOOD COUNT 11.9 10^3/uL (4.0-10.5)
[2020-08-14 15:47] LABS: ALBUMIN 3.7 g/dL (3.5-5.0); ALKALINE PHOSPHATASE 86 U/L (38-126); ANION GAP 9 (5-19); ASPARTATE AMINO TRANSFERASE 13 U/L (14-36); BILIRUBIN,DIRECT 0.2 mg/dL (0.0-0.4); BILIRUBIN,TOTAL 0.7 mg/dL (0.2-1.3); BLOOD UREA NITROGEN 7 mg/dL (7-20); CALCIUM 9.4 mg/dL (8.4-10.2); CARBON DIOXIDE 27 mmol/L (22-30); CHLORIDE 98 mmol/L (98-107); GLUCOSE 220 mg/dL (75-110); POTASSIUM 4.2 mmol/L (3.6-5.0); TOTAL PROTEIN 8.4 g/dL (6.3-8.2)
--- NOTE | 2020-08-14 16:41 | ER Document Report ---
ED General - General Chief Complaint: Abscess Stated Complaint: POSSIBLE ABSCESS/FEVER Time Seen by Provider: 08/14/20 14:41 Primary Care Provider: KACY ARNDT DPM [ACTIVE STAFF] - Follow up as needed Mode of Arrival: Wheelchair Information source: Patient TRAVEL OUTSIDE OF THE [place] IN LAST 30 DAYS: No - HPI Patient complains to provider of: Pain and swelling the left foot Notes: This patient is a 35-year-old female with poorly controlled type 2 diabetes and hypertension. She has had painful swelling of her left foot for more than a week. She had an amputation of her left fifth toe due to gangrene in May of this year. She is followed by a local marketing analyst. Unfortunately her wound has broken down and ulcerated her foot is now infected again. She has been running fevers intermittently as high as 103 degrees orally. She denies any chills. She does feel some malaise. She states she has been taking her medications as prescribed. Evidently she was seen in her marketing analyst office [place] today and was told to present here to the emergency department for possible admission because of the worsening condition of her foot. She denies any other illnesses or symptoms. She is otherwise in her usual state of health. - Related Data Allergies/Adverse Reactions: No Known Allergies Allergy (Verified 08/14/20 14:40) Past Medical History - General Information source: Patient - Social History Smoking Status: Never Smoker Chew tobacco use (# tins/day): No Drug Abuse: None Family History: Reviewed & Not Pertinent, Hypertension Patient has homicidal ideation: No - Medical History Notes: Past medical history is reviewed as documented in the medical record. - Past Medical History Cardiac Medical History: Reports: Hx Hypertension Denies: Hx Coronary Artery Disease, Hx Heart Attack Pulmonary Medical History: Denies: Hx Asthma, Hx Bronchitis, Hx COPD, Hx Pneumonia Neurological Medical History: Denies: Hx Cerebrovascular Accident, Hx Seizures Endocrine Medical History: Reports: Hx Diabetes Mellitus Type 2 Renal/ Medical History: Denies: Hx Peritoneal Dialysis Musculoskeletal Medical History: Denies Hx Arthritis Psychiatric Medical History: Denies: Hx Depression Past Surgical History: Reports: Hx Gynecologic Surgery - D&C 2019 - Immunizations Hx Diphtheria, Pertussis, Tetanus Vaccination: No Review of Systems - Review of Systems Notes: Complete review of systems is normal or nondiagnostic except as noted in the history of present illness. Physical Exam - Vital signs Vitals: Temp Pulse Resp BP Pulse Ox 99.3 F 139 H 18 139/79 H 100 08/14/20 14:05 08/14/20 14:05 08/14/20 14:05 08/14/20 14:05 08/14/20 14:05 - Notes Notes: General: Well-developed well-nourished obese female no acute distress. Vital signs and nursing chief complaint are reviewed. HEENT: Grossly normal to inspection. Neck: Supple no adenopathy. Lungs: Clear to auscultation all anthony. Heart: Regular rate and rhythm without murmur. Abdomen: Obese soft nontender no vascular megaly rigidity or guarding. Extremities: Patient has a deep ulcer along the surgical wound involving her left fifth metatarsal. This is somewhat necrotic wound edges and some purulent discharge. The foot itself is somewhat edematous and tender. It is slightly warm to the touch. Pulses are diminished but are palpable. Neuro: Alert and oriented x3. No focal neuro deficits noted. Course - Re-evaluation Re-evalutation: 08/14/20 17:13 Patient had Zosyn and vancomycin ordered by the provider in triage. Labs and cultures were initiated. After I evaluated her and determined that admission was in fact indicated. I spoke to her primary care doctor who accepted her for admission and said he would come in and see her. - Vital Signs Vital signs: Temp Pulse Resp BP Pulse Ox 100.3 F 139 H 20 139/79 H 100 08/14/20 16:39 08/14/20 14:05 08/14/20 16:39 08/14/20 14:05 08/14/20 16:39 - Laboratory Result Diagrams: 08/14/20 15:10 08/14/20 15:10 Laboratory results interpreted by me: 08/14/20 08/14/20 08/14/20 15:10 15:10 15:10 WBC 11.9 H Hgb 9.2 L Hct 27.5 L MCV 70 L MCH 23.2 L RDW 17.4 H Plt Count 471 H Absolute Neuts (auto) 8.8 H Sodium 134.3 L Glucose 220 H Lactic Acid 2.3 H AST 13 L Total Protein 8.4 H - Diagnostic Test Radiology reviewed: Image reviewed, Reports reviewed Radiology results interpreted by me: 08/14/20 17:14 Foot X-Ray 08/14/20 14:49 IMPRESSION: Osteomyelitis in the 5th metatarsal. 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
--- NOTE | 2020-08-14 16:43 | RADIOLOGY REPORT (SQ) ---
EXAM DESCRIPTION: FOOT LEFT COMPLETE IMAGES COMPLETED DATE/TIME: 08/14/2020 4:06 pm REASON FOR STUDY: left foot infection COMPARISON: None. NUMBER OF VIEWS: Three views. TECHNIQUE: AP, lateral and oblique radiographic images acquired of the left foot. LIMITATIONS: None. FINDINGS: MINERALIZATION: Normal. BONES: Amputation of the 5th digit from the mid 5th metatarsal. Extensive bone destruction in the re maining portion of the 5th metatarsal. JOINTS: No effusions. SOFT TISSUES: No soft tissue swelling. No foreign body. OTHER: No other significant finding. IMPRESSION: Osteomyelitis in the 5th metatarsal. TECHNICAL DOCUMENTATION: JOB ID: [id number] 2010 [employer]- All Rights Reserved Reading location - IP/workstation name: [email or web address]
[2020-08-14] MEDS: NORMAL SALINE 1000 ML 1,000 ML IV PRN ×3 (17:01→21:19)
--- NOTE | 2020-08-14 17:41 | EKG REPORT ---
SEVERITY:- OTHERWISE NORMAL ECG - SINUS TACHYCARDIA : Confirmed by: Butch Soriano MD 14-Aug-2020 17:41:29
[2020-08-14] MEDS ORDERED: GLUCAGON,HUMAN RECOMB 1 MG INJ IM PRN (18:45)
[2020-08-14] MEDS ORDERED: DEXTROSE 40% GEL 15 GM TUBE PO PRN ×2 (18:45)
[2020-08-14] MEDS ORDERED: DEXTROSE 50%-WATER 25 GM/50 ML DISP.SYRIN IV PRN ×2 (18:45)
[2020-08-14] MEDS ORDERED: VANCOMYCIN HCL 0 MG in DEXTROSE 5%-WATER 250 ML IV NR (19:00)
--- NOTE | 2020-08-14 19:09 | PDOC H&P ---
History of Present Illness Admission Date/PCP: 08/14/20 17:24 [facility] Patient complains of: Left foot pain History of Present Illness: AAMIR GUSMAN is a 35 year old female known to my practice who was referred to the ED for further evaluation due to worsening pain in her left foot. Patient reported that she had episode of fever 3 days prior to her presentation and developed pain in her left foot that worsen over last 2 days. She denied any instrumentation, trauma, or injury preceding her symptoms onset. She reported compliance with her left foot post 5th toe amputation dressing at home. Her home blood glucose level have been satisfactory until 3 days ago when it has remained above 200 mg/dL. Rhys reported compliance with her medication and dietary restrictions. She denied any nausea, vomiting, abdominal pain, or diarrhea. No chest pain or difficulty with her breathing. Her initial ED evaluation was significant for worsening left foot open wound, leukocytosis and X ray suggestive of osteomyelitis involving the 5th metatarsal bone. Her morbidities are as listed below. She was advised hospitalization for further evaluation and management. She will need surgical consultation for possible intervention. Past Medical History Cardiac Medical History: Reports: Hypertension Denies: Coronary Artery Disease, Myocardial Infarction Pulmonary Medical History: Denies: Asthma, Bronchitis, Chronic Obstructive Pulmonary Disease (COPD), Pneumonia Neurological Medical History: Denies: Seizures Endocrine Medical History: Reports: Diabetes Mellitus Type 2 Musculoskeltal Medical History: Denies: Arthritis Psychiatric Medical History: Denies: Depression Hematology: Denies: Anemia Social History Smoking Status: Never Smoker Electronic Cigarette use?: No Frequency of Alcohol Use: None Hx Recreational Drug Use: No Drugs: None Hx Prescription Drug Abuse: No Family History Family History: Reviewed & Not Pertinent, Hypertension Parental Family History Reviewed: Yes Children Family History Reviewed: Yes Sibling(s) Family History Reviewed.: Yes Medication/Allergy Home Medications: Metformin HCl 1,000 mg PO BID #60 tablet 11/16/18 Amlodipine Besylate [Norvasc 10 mg Tablet] 10 mg PO DAILY 06/04/20 Ferrous Sulfate [Feosol 325 mg Tablet] 325 mg PO DAILY 06/04/20 Hydrochlorothiazide [Hydrodiuril 12.5 mg Tablet] 12.5 mg PO DAILY 06/04/20 Insulin NPH Human Isophane [Novolin N Flexpen] 30 units SQ QPM 06/04/20 Insulin NPH Human Isophane [Novolin N Flexpen] 50 units SQ QAM 06/04/20 Insulin Regular, Human [Novolin R] 0 units SQ .PERSLIDINGSCALE MDD AT LUNCH 06/04/20 Irbesartan 300 mg PO DAILY 06/04/20 Lactobacillus Acidophilus/Fos [Acidophilus Probiotic Tablet] 1 tab PO BID 06/04/20 Tramadol HCl [Ultram 50 mg Tablet] 50 mg PO Q6HP PRN #60 tablet 06/11/20 Allergies/Adverse Reactions: No Known Allergies Allergy (Verified 08/14/20 14:40) Review of Systems Constitutional: PRESENT: fever(s). ABSENT: chills, headache(s) Eyes: ABSENT: visual disturbances Ears: ABSENT: hearing changes Cardiovascular: ABSENT: chest pain, dyspnea on exertion, edema, orthropnea, pal pitations Respiratory: ABSENT: cough, hemoptysis Gastrointestinal: ABSENT: abdominal pain, constipation, diarrhea, hematemesis, hematochezia, nausea, vomiting Genitourinary: ABSENT: dysuria, hematuria Musculoskeletal: ABSENT: joint swelling Integumentary: PRESENT: wounds - left foot. ABSENT: rash Neurological: ABSENT: abnormal gait, abnormal speech, confusion, dizziness, focal weakness, syncope Psychiatric: ABSENT: anxiety, depression, homidical ideation, suicidal ideation Endocrine: ABSENT: cold intolerance, heat intolerance, menstrual abnormalities, polydipsia, polyuria Hematologic/Lymphatic: ABSENT: easy bleeding, easy bruising, lymphadenopathy Physical Exam Vital Signs: Temp Pulse Resp BP Pulse Ox 100.3 F 139 H 25 H 119/52 L 98 08/14/20 16:39 08/14/20 14:05 08/14/20 18:03 08/14/20 18:03 08/14/20 18:03 Intake & Output 08/13/20 08/14/20 08/15/20 06:59 06:59 06:59 Intake Total 1000 Balance 1000 Weight 153.7 kg General appearance: PRESENT: no acute distress, morbidly obese Head exam: PRESENT: atraumatic, normocephalic Eye exam: PRESENT: conjunctiva pink, EOMI, PERRLA. ABSENT: scleral icterus Ear exam: PRESENT: normal external ear exam Mouth exam: PRESENT: moist, tongue midline Neck exam: PRESENT: full ROM. ABSENT: carotid bruit, JVD, lymphadenopathy, thyromegaly Respiratory exam: PRESENT: clear to auscultation [place] Cardiovascular exam: PRESENT: RRR, +S1, +S2. ABSENT: diastolic murmur, rubs, systolic murmur Pulses: PRESENT: normal dorsalis pedis pul, +2 pedal pulses bilateral Vascular exam: PRESENT: normal capillary refill. ABSENT: pallor GI/Abdominal exam: PRESENT: normal bowel sounds, soft. ABSENT: distended, guarding, mass, organolmegaly, rebound, tenderness Rectal exam: PRESENT: deferred Extremities exam: PRESENT: pedal edema - left foot and lower leg regions, tenderness - left foot to palpation and examination manipulation Musculoskeletal exam: PRESENT: tenderness - in left foot Neurological exam: PRESENT: alert, awake, oriented to person, oriented to place, oriented to time, oriented to situation, CN II-XII grossly intact. ABSENT: motor sensory deficit Psychiatric exam: PRESENT: appropriate affect, normal mood. ABSENT: homicidal ideation, suicidal ideation Skin exam: PRESENT: dry, mottled - left foot lateral aspect, warm. ABSENT: cyanosis, intact - open wound involving lateral as-ect of left foot soft tissue structure., rash Results Laboratory Results: 08/14/20 15:10 08/14/20 15:10 08/14/20 08/14/20 08/14/20 15:10 15:10 15:10 WBC 11.9 H RBC 3.95 Hgb 9.2 L Hct 27.5 L MCV 70 L MCH 23.2 L MCHC 33.4 RDW 17.4 H Plt Count 471 H Seg Neutrophils % 73.9 Sodium 134.3 L Potassium 4.2 Chloride 98 Carbon Dioxide 27 Anion Gap 9 BUN 7 Creatinine 0.70 Est GFR ( Amer) > 60 Glucose 220 H Lactic Acid 2.3 H Calcium 9.4 Total Bilirubin 0.7 AST 13 L Alkaline Phosphatase 86 C-Reactive Protein Total Protein 8.4 H Albumin 3.7 08/14/20 15:10 WBC RBC Hgb Hct MCV MCH MCHC RDW Plt Count Seg Neutrophils % Sodium Potassium Chloride Carbon Dioxide Anion Gap BUN Creatinine Est GFR ( Amer) Glucose Lactic Acid Calcium Total Bilirubin AST Alkaline Phosphatase C-Reactive Protein 252.6 H Total Protein Albumin Impressions: Foot X-Ray 08/14/20 14:49 IMPRESSION: Osteomyelitis in the 5th metatarsal. Assessment & Plan - Diagnosis (1) Osteomyelitis of foot, left, acute Is this a current diagnosis for this admission?: Yes Plan: See admitting attending physician orders for details about care plan. (2) Probable sepsis Is this a current diagnosis for this admission?: Yes Plan: See admitting attending physician orders for details about care plan. (3) Uncontrolled type 2 diabetes mellitus Qualifiers: Glycemic state: with hyperglycemia Qualified Code(s): E11.65 - Type 2 diabetes mellitus with hyperglycemia Is this a current diagnosis for this admission?: Yes Plan: See admitting attending physician orders for details about care plan. (4) HTN (hypertension) Qualifiers: Hypertension type: essential hypertension Qualified Code(s): I10 - Essential (primary) hypertension Is this a current diagnosis for this admission?: Yes Plan: See admitting attending physician orders for details about care plan. (5) Morbid (severe) obesity due to excess calories Is this a current diagnosis for this admission?: Yes Plan: See admitting attending physician orders for details about care plan. - Time Time Spent: 50 to 70 Minutes Medications reviewed and adjusted accordingly: Yes Anticipated Discharge Disposition: Home with Home Health Anticipated Discharge Timeframe: within 72 hours - Inpatient Certification Based on my medical assessment, after consideration of the patient's comorbidities, presenting symptoms, or acuity I expect that the services needed warrant INPATIENT care.: Yes I certify that my determination is in accordance with my understanding of Medicare's requirements for reasonable and necessary INPATIENT services [42 CFR 412.3e].: Yes Medical Necessity: Significant Comorbidiites Make Outpatient Treatment Too Risky, Need Close Monitoring Due to Risk of Patient Decompensation, Need For IV Fluids, Need For Continuous Telemetry Monitoring, Need for Pain Control, Need for IV Antibiotics, Need for Surgery, Risk of Complication if Not Cared For in H ospital, Risk of Diagnosis Which Will Require Inpatient Eval/Care/Monitoring Post Hospital 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
[2020-08-14] MEDS: INSULIN LISPRO 100 UNIT/ML 3 ML VIAL SUBCUT SCH (21:28)
[2020-08-14] MEDS ORDERED: VANCOMYCIN HCL 1,500 MG in DEXTROSE 5%-WATER 250 ML IV SCH (22:00)
[2020-08-14] MEDS: OXYCODONE-ACETAMINOPHEN 5-325 MG TABLET PO PRN (23:38)
[2020-08-15] MEDS: PIPERACILLIN SODIUM/TAZOBACTAM 3.375 GM in NORMAL SALINE 100 ML IV SCH ×4 (00:18→17:53)
[2020-08-15] MEDS: PANTOPRAZOLE SODIUM 40 MG TABLET.DR PO SCH (06:18)
[2020-08-15 06:52] LABS: ABSOLUTE EOSINOPHILS # (AUTO) 0.2 10^3/uL (0.0-0.6); ABSOLUTE LYMPHOCYTES (AUTO) 1.4 10^3/uL (0.5-4.7); ABSOLUTE MONOCYTES (AUTO) 1.3 10^3/uL (0.1-1.4); ABSOLUTE NEUT (AUTO) 7.8 10^3/uL (1.7-8.2); BASOPHILS % (AUTO) 0.4 % (0-2); EOSINOPHILS % (AUTO) 1.4 % (0-6); HEMATOCRIT 24.1 % (36.0-47.0); HEMOGLOBIN 8.1 g/dL (12.0-15.5); LYMPHOCYTES % (AUTO) 12.9 % (13-45); MEAN CORPUSCULAR HEMOGLOBIN 23.2 pg (27.0-33.4); MEAN CORPUSCULAR HGB CONC 33.4 g/dL (32.0-36.0); MEAN CORPUSCULAR VOLUME 69 fl (80-97); PLATELET COUNT 374 10^3/uL (150-450); RED BLOOD COUNT 3.48 10^6/uL (3.72-5.28); RED CELL DISTRIBUTION WIDTH 17.4 % (11.5-14.0); SEGMENTED NEUTROPHILS % (AUTO) 73.3 % (42-78); TOTAL CELLS COUNTED % (AUTO) 100 %; WHITE BLOOD COUNT 10.6 10^3/uL (4.0-10.5)
[2020-08-15 07:11] LABS: ALBUMIN 2.9 g/dL (3.5-5.0); ALKALINE PHOSPHATASE 73 U/L (38-126); ASPARTATE AMINO TRANSFERASE 11 U/L (14-36); BILIRUBIN,DIRECT 0.2 mg/dL (0.0-0.4); BILIRUBIN,TOTAL 0.6 mg/dL (0.2-1.3); BLOOD UREA NITROGEN 7 mg/dL (7-20); CALCIUM 8.8 mg/dL (8.4-10.2); CARBON DIOXIDE 29 mmol/L (22-30); CHLORIDE 102 mmol/L (98-107); CHOLESTEROL 108.73 mg/dL (0-200); GLUCOSE 204 mg/dL (75-110); POTASSIUM 4.2 mmol/L (3.6-5.0); TRIGLYCERIDES 122 mg/dL (<150)
[2020-08-15 07:22] LABS: DIRECT LDL 55 mg/dL (<100)
[2020-08-15 07:39] LABS: ANION GAP 4 (5-19)
[2020-08-15] MEDS: INSULIN LISPRO 100 UNIT/ML 3 ML VIAL SUBCUT SCH ×4 (08:42→22:04)
[2020-08-15] MEDS ORDERED: (PENDING PHARMACY ID) (Metformin Hcl [Metformin Hcl] 1,000 MG Tablet) PO SCH (10:00)
[2020-08-15] MEDS ORDERED: IRBESARTAN 300 MG PO SCH (10:00)
[2020-08-15] MEDS: FERROUS SULFATE 325 MG TABLET PO SCH (11:18)
[2020-08-15] MEDS: AMLODIPINE BESYLATE 10 MG TABLET PO SCH (11:18)
[2020-08-15] MEDS: VANCOMYCIN HCL 1,500 MG in DEXTROSE 5%-WATER 250 ML IV SCH ×2 (11:19→18:35)
[2020-08-15] MEDS: ENOXAPARIN SODIUM INJ 40 MG/0.4 ML DISP.SYRIN SUBCUT SCH (11:19)
[2020-08-15] MEDS: NORMAL SALINE 1000 ML 1,000 ML IV PRN (17:51)
[2020-08-15] MEDS: METFORMIN HCL 500 MG TABLET PO SCH (17:54)
[2020-08-15] MEDS: INSULIN NPH (ISOPHANE), HUMAN 100 UNIT/ML 3 ML SUBCUT SCH (17:55)
--- NOTE | 2020-08-15 17:56 | PDOC CONSULTATION ---
Consultation Consult Date: 08/15/20 Provider Consulted: SHINE TUCKER Consult reason:: Osteomyelitis of the remaining left fifth metatarsal bone History of Present Illness Admission Date/PCP: 08/14/20 17:24 ROBERT MITCHELL History of Present Illness: AAMIR GUSMAN is a 35 year old female diabetic who had amputation of the left fifth toe together with metatarsal head last 06/06/2020 by . Patient wound was left open and was followed at the wound care center. He did have his wound VAC placed at one time. However for the past few days her left foot started to get more swollen and more painful on the lateral aspect of the left foot. X-rays done in ED showed osteomyelitis of the remaining left fifth metatarsal bone. Patient complaining of fever and chills about 4 days ago just prior to admission. Past Medical History Cardiac Medical History: Reports: Hypertension Denies: Coronary Artery Disease, Myocardial Infarction Pulmonary Medical History: Denies: Asthma, Bronchitis, Chronic Obstructive Pulmonary Disease (COPD), Pneumonia Neurological Medical History: Denies: Seizures Endocrine Medical History: Reports: Diabetes Mellitus Type 2 Musculoskeltal Medical History: Denies: Arthritis Psychiatric Medical History: Denies: Depression Hematology: Denies: Anemia Past Surgical History Past Surgical History: Reports: Amputation - Ray amputation left fifth toe Social History Smoking Status: Never Smoker Electronic Cigarette use?: No Frequency of Alcohol Use: None Hx Recreational Drug Use: No Drugs: None Hx Prescription Drug Abuse: No Family History Family History: Reviewed & Not Pertinent, Hypertension Parental Family History Reviewed: Yes - Positive diabetes mellitus Children Family History Reviewed: No Sibling(s) Family History Reviewed.: No Medication/Allergy Home Medications: Metformin HCl 1,000 mg PO BID #60 tablet 11/16/18 Amlodipine Besylate [Norvasc 10 mg Tablet] 10 mg PO DAILY 06/04/20 Ferrous Sulfate [Feosol 325 mg Tablet] 325 mg PO DAILY 06/04/20 Hydrochlorothiazide [Hydrodiuril 12.5 mg Tablet] 12.5 mg PO DAILY 06/04/20 Insulin NPH Human Isophane [Novolin N Flexpen] 40 units SUBCUT QPM 06/04/20 Insulin NPH Human Isophane [Novolin N Flexpen] 50 units SUBCUT QAM 06/04/20 Insulin Regular, Human [Novolin R] 0 units SUBCUT .PERSLIDINGSCALE 06/04/20 Irbesartan 300 mg PO DAILY 06/04/20 Lactobacillus Acidophilus/Fos [Acidophilus Probiotic Tablet] 1 tab PO BID 06/04/20 Tramadol HCl [Ultram 50 mg Tablet] 50 mg PO Q6HP PRN #60 tablet 06/11/20 Allergies/Adverse Reactions: No Known Allergies Allergy (Verified 08/14/20 14:40) Review of Systems Constitutional: PRESENT: as per HPI Musculoskeletal: PRESENT: other - Pain to left foot lateral aspect Physical Exam Vital Signs: Temp Pulse Resp BP Pulse Ox 98.3 F 94 12 133/67 H 100 08/15/20 16:07 08/15/20 16:07 08/15/20 16:07 08/15/20 16:07 08/15/20 16:07 Intake & Output 08/14/20 08/15/20 08/16/20 06:59 06:59 06:59 Intake Total 2170 250 Balance 2170 250 Weight 152.8 kg General appearance: PRESENT: mild distress Head exam: PRESENT: atraumatic Eye exam: PRESENT: conjunctiva pink Mouth exam: PRESENT: moist Neck exam: PRESENT: full ROM Respiratory exam: PRESENT: clear to auscultation [place] Cardiovascular exam: PRESENT: RRR Pulses: PRESENT: normal radial pulses, normal dorsalis pedis pul Vascular exam: PRESENT: normal capillary refill GI/Abdominal exam: PRESENT: soft Rectal exam: PRESENT: deferred Musculoskeletal exam: PRESENT: other - Left foot swollen with tenderness and proximal lateral foot close to the heel Partially opened left fifth toe amputation site with small amount of serosanguineous drainage Neurological exam: PRESENT: alert, oriented to person, oriented to place, oriented to time, oriented to situation Psychiatric exam: PRESENT: appropriate affect Skin exam: PRESENT: normal color, warm Results Laboratory Results: 08/15/20 06:12 08/15/20 06:12 08/15/20 08/15/20 06:12 06:12 WBC 10.6 H RBC 3.48 L Hgb 8.1 L Hct 24.1 L MCV 69 L MCH 23.2 L MCHC 33.4 RDW 17.4 H Plt Count 374 Seg Neutrophils % 73.3 Sodium 135.1 L Potassium 4.2 Chloride 102 Carbon Dioxide 29 Anion Gap 4 L BUN 7 Creatinine 0.74 Est GFR ( Amer) > 60 Glucose 204 H Calcium 8.8 Total Bilirubin 0.6 AST 11 L Alkaline Phosphatase 73 Total Protein 7.0 Albumin 2.9 L Triglycerides 122 Cholesterol 108.73 LDL Cholesterol Direct 55 VLDL Cholesterol 24.0 HDL Cholesterol 22 L Impressions: Foot X-Ray 08/14/20 14:49 IMPRESSION: Osteomyelitis in the 5th metatarsal. Assessment & Plan - Diagnosis (1) Type 2 diabetes mellitus Is this a current diagnosis for this admission?: Yes (2) Osteomyelitis left fifth metatarsal bone Is this a current diagnosis for this admission?: Yes - Time Time Spent: 30 to 50 Minutes - Inpatient Certification Medical Necessity: Need for IV Antibiotics, Need for Surgery - Plan Summary Plan Summary: 35-year-old female type 2 diabetes with previous amputation of the left fifth toe and metatarsal head 06/06/2020. The amputation wound was left open and being followed at the wound care center and at one time the wound VAC placed. However for the past several days patient complaining of more pain and swelling of the left foot associated with fever and chills. X-ray of the left foot showed osteomyelitis of the remaining left fifth metatarsal bone. Is also tender around the proximal part of the metatarsal bone towards the ankle area. There is a palpable dorsalis pedis artery pulse. There is some serosanguineous drainage on his squeezing around the fifth metatarsal bone area. Her white count slightly elevated and her blood sugar still elevated. She will need at least a completion amputation of the left fifth metatarsal bone. I discussed the procedure with the patient and told her that she may need higher up amputation such as below knee if the infection is not well controlled with IV antibiotics and the amputation of the fifth metatarsal. She appears to understand this since apparently her grandmother also had diabetes and had amputation of the leg. Plans: Schedule completion of amputation of the left fifth metatarsal bone for tomorrow by Dr. Anderson.
[2020-08-15] MEDS ORDERED: INSULIN NPH HUMAN ISOPHANE 100 UNIT/ML SUBCUT SCH (18:00)
[2020-08-15] MEDS ORDERED: [UNRECOGNIZED DRUG - OTHER] SUBCUT SCH (18:00)
--- NOTE | 2020-08-15 19:23 | PDOC PROGRESS REPORT ---
Subjective Date:: 08/15/20 Subjective:: Patient denied any chest pain or difficulty with breathing. No reported signific ant pain in left foot. No fever or chills. Patient was seen in consultation by Dr. Burger, surgeon, and plan for further surgical intervention tomorrow. No nausea, vomiting, or abdominal pain. Reason For Visit: CELLULITIS OF FOOT,TYPE 2 DIABETES MELLITUS WITH Physical Exam Vital Signs: Temp Pulse Resp BP Pulse Ox 98.1 F 97 17 132/63 H 99 08/15/20 06:26 08/15/20 02:00 08/14/20 23:26 08/14/20 23:26 08/14/20 23:26 Intake & Output 08/14/20 08/15/20 08/16/20 06:59 06:59 06:59 Intake Total 2170 Balance 2170 Weight 152.8 kg General appearance: PRESENT: no acute distress, morbidly obese Head exam: PRESENT: atraumatic, normocephalic Eye exam: PRESENT: conjunctiva pink. ABSENT: scleral icterus Ear exam: PRESENT: normal external ear exam Mouth exam: PRESENT: moist, tongue midline Neck exam: PRESENT: full ROM. ABSENT: carotid bruit, JVD, lymphadenopathy, thyromegaly Respiratory exam: PRESENT: clear to auscultation [place] Cardiovascular exam: PRESENT: RRR, +S1, +S2. ABSENT: diastolic murmur, rubs, systolic murmur Pulses: PRESENT: normal dorsalis pedis pul Vascular exam: PRESENT: normal capillary refill. ABSENT: pallor GI/Abdominal exam: PRESENT: normal bowel sounds, soft. ABSENT: distended, guarding, mass, organolmegaly, rebound, tenderness Rectal exam: PRESENT: deferred Extremities exam: PRESENT: pedal edema - limiuted to left foot, tenderness Musculoskeletal exam: PRESENT: deformity - left foot s/p 5th toe amputation, tenderness - left foot to palpation and manipulation on examination, No sign ificant wound drainage. Neurological exam: PRESENT: alert, awake, oriented to person, oriented to place, oriented to time, oriented to situation, CN II-XII grossly intact. ABSENT: motor sensory deficit Psychiatric exam: PRESENT: appropriate affect, normal mood. ABSENT: homicidal ideation, suicidal ideation Skin exam: PRESENT: dry, intact, warm. ABSENT: cyanosis, rash Results Laboratory Results: 08/15/20 06:12 12/04/20 06:12 08/14/20 08/14/20 08/14/20 15:10 15:10 15:10 WBC 11.9 H RBC 3.95 Hgb 9.2 L Hct 27.5 L MCV 70 L MCH 23.2 L MCHC 33.4 RDW 17.4 H Plt Count 471 H Seg Neutrophils % 73.9 Sodium 134.3 L Potassium 4.2 Chloride 98 Carbon Dioxide 27 Anion Gap 9 BUN 7 Creatinine 0.70 Est GFR ( Amer) > 60 Glucose 220 H Lactic Acid 2.3 H Calcium 9.4 Total Bilirubin 0.7 AST 13 L Alkaline Phosphatase 86 C-Reactive Protein Total Protein 8.4 H Albumin 3.7 Triglycerides Cholesterol LDL Cholesterol Direct VLDL Cholesterol HDL Cholesterol 08/14/20 08/15/20 08/15/20 15:10 06:12 06:12 WBC 10.6 H RBC 3.48 L Hgb 8.1 L Hct 24.1 L MCV 69 L MCH 23.2 L MCHC 33.4 RDW 17.4 H Plt Count 374 Seg Neutrophils % 73.3 Sodium 135.1 L Potassium 4.2 Chloride 102 Carbon Dioxide 29 Anion Gap 4 L BUN 7 Creatinine 0.74 Est GFR ( Amer) > 60 Glucose 204 H Lactic Acid Calcium 8.8 Total Bilirubin 0.6 AST 11 L Alkaline Phosphatase 73 C-Reactive Protein 252.6 H Total Protein 7.0 Albumin 2.9 L Triglycerides 122 Cholesterol 108.73 LDL Cholesterol Direct 55 VLDL Cholesterol 24.0 HDL Cholesterol 22 L Impressions: Foot X-Ray 08/14/20 14:49 IMPRESSION: Osteomyelitis in the 5th metatarsal. Assessment & Plan - Diagnosis (1) Osteomyelitis of foot, left, acute Is this a current diagnosis for this admission?: Yes (2) Probable sepsis Is this a current diagnosis for this admission?: Yes (3) Uncontrolled type 2 diabetes mellitus Qualifiers: Glycemic state: with hyperglycemia Qualified Code(s): E11.65 - Type 2 diabetes mellitus with hyperglycemia Is this a current diagnosis for this admission?: Yes (4) HTN (hypertension) Qualifiers: Hypertension type: essential hypertension Qualified Code(s): I10 - Ess ential (primary) hypertension Is this a current diagnosis for this admission?: Yes (5) Morbid (severe) obesity due to excess calories Is this a current diagnosis for this admission?: Yes - Time Time Spent with patient: 25-34 minutes Level of Care: TELE Medications reviewed and adjusted accordingly: Yes Anticipated discharge: Home with Homehealth Anticipated DC Timeframe: within 72 hours - Inpatient Certification Based on my medical assessment, after consideration of the patient's comorbidities, presenting symptoms, or acuity I expect that the services needed warrant INPATIENT care.: Yes I certify that my determination is in accordance with my understanding of Medicare's requirements for reasonable and necessary INPATIENT services [42 CFR 412.3e].: Yes Medical Necessity: Significant Comorbidiites Make Outpatient Treatment Too Risky, Need Close Monitoring Due to Risk of Patient Decompensation, Need For IV Fluids, Need For Continuous Telemetry Monitoring, Need for Pain Control, Need for IV Antibiotics, Need for Surgery, Risk of Complication if Not Cared For in Hospital, Risk of Diagnosis Which Will Require Inpatient Eval/Care/Monitoring Post Hospital Care: D/C Supervisor [place] Documentation - Plan Summary Plan Summary: Continue antibiotic coverage. Follow up on wound and blood culture findings. Maintain NPO after midnight as per surgical team plan for intervention tomorrow.
[2020-08-16] MEDS: PIPERACILLIN SODIUM/TAZOBACTAM 3.375 GM in NORMAL SALINE 100 ML IV SCH ×4 (01:12→18:48)
--- NOTE | 2020-08-16 01:13 | CDI QUERY ---
CDI Query CDI Review: Documentation in the Medical Record indicates this patient has: Height: 5 ft 11 in Weight: 152.8 kg (336.16 lbs) Calculated BMI: 46.9 kg/m2 The following is also documented in the Medical Record (if pertinent to diagnoses) Per Progress Notes: "Morbid Obesity due to excess calories" Based on your medical judgement, can you further clarify in the Progress Notes the diagnosis associated with these findings: Morbid Obesity / 46.9 kg/m2 Overweight / 46.9 kg/m2 Obesity / 46.9 kg/m2 Other condition (please specify) None of the above / Not applicable Please note: Obesity is defined as: Class 1: BMI of 30 to < 35 Class 2: BMI of 35 to < 40 Class 3: BMI of > 40 (this is also defined as Morbid Obesity) Overweight: BMI 25 to < 30 Normal weight: BMI 18.5 to < 25 The condition of Morbid Obesity is a significant contributing factor to the health and recovery of a patient. Documentation of the BMI is clinical evidence for the diagnosis. Thank you for your consideration. REY Robbins RN Clinical Work Environment Safety Inspector Physician [email or web address] [email or web address]
[2020-08-16] MEDS: VANCOMYCIN HCL 1,500 MG in DEXTROSE 5%-WATER 250 ML IV SCH ×3 (01:15→21:27)
[2020-08-16] MEDS: PANTOPRAZOLE SODIUM 40 MG TABLET.DR PO SCH (06:06)
[2020-08-16] MEDS ORDERED: MIDAZOLAM 2 MG/2 ML INJ ONE (07:35)
[2020-08-16] MEDS ORDERED: EPHEDRINE SULFATE INJ 50 MG/1 ML AMPULE ONE (07:35)
[2020-08-16] MEDS ORDERED: FENTANYL CITRATE INJ/PF 100 MCG/2 ML AMPUL ONE ×2 (07:35→09:43)
[2020-08-16] MEDS ORDERED: PROPOFOL INJ 200 MG/20 ML VIAL IV ONE (07:36)
[2020-08-16] MEDS ORDERED: DEXMEDETOMIDINE INJ 80 MCG/20 ML VIAL IV ONE (07:36)
[2020-08-16] MEDS: INSULIN LISPRO 100 UNIT/ML 3 ML VIAL SUBCUT SCH ×4 (07:57→23:28)
[2020-08-16] MEDS ORDERED: MORPHINE SULFATE 10 MG/ML INJ IV PRN (08:28)
[2020-08-16] MEDS ORDERED: MEPERIDINE HCL/PF INJ 25 MG/1 ML DISP.SYRIN IV PRN (08:28)
[2020-08-16] MEDS ORDERED: DIPHENHYDRAMINE HCL 50 MG/ML VIAL IV PRN (08:28)
[2020-08-16] MEDS ORDERED: PROMETHAZINE HCL INJ 25 MG/1 ML VIAL IV PRN ×2 (08:28)
[2020-08-16] MEDS ORDERED: FENTANYL CITRATE INJ/PF 100 MCG/2 ML AMPUL IV PRN ×3 (08:28)
[2020-08-16] MEDS ORDERED: OXYCODONE-ACETAMINOPHEN 5-325 MG TABLET PO PRN ×2 (08:28)
[2020-08-16] MEDS ORDERED: SUCCINYLCHOLINE CHLORIDE INJ 200 MG/10 ML VIAL ONE (09:39)
[2020-08-16] MEDS ORDERED: KETOROLAC TROMETHAMINE 60 MG/2 ML SDV ONE (09:39)
[2020-08-16] MEDS ORDERED: ONDANSETRON HCL INJ/PF 4 MG/2 ML SDV ONE (09:39)
[2020-08-16] MEDS ORDERED: LIDOCAINE 2% INJ-PF (20 MG/ML) 2 ML AMPUL ONE (09:39)
[2020-08-16] MEDS ORDERED: OXYCODONE-ACETAMINOPHEN 5-325 MG TABLET ONE (09:42)
--- NOTE | 2020-08-16 09:47 | PDOC PROGRESS REPORT ---
Subjective Date:: 08/16/20 Subjective:: Patient was admitted for the left foot osteomyelitis currently going for the [facility] No other events happens Reason For Visit: CELLULITIS OF FOOT,TYPE 2 DIABETES MELLITUS WITH Physical Exam Vital Signs: Temp Pulse Resp BP Pulse Ox 98.4 F 95 18 126/68 H 98 08/16/20 07:42 08/16/20 07:00 08/16/20 04:13 08/16/20 04:13 08/16/20 04:13 Intake & Output 08/15/20 08/16/20 08/17/20 06:59 06:59 06:59 Intake Total 2170 2708 Balance 2170 2708 Weight 152.8 kg 152 kg General appearance: PRESENT: no acute distress, well-developed, well-nourished Head exam: PRESENT: atraumatic, normocephalic Eye exam: PRESENT: conjunctiva pink, EOMI, PERRLA. ABSENT: scleral icterus Ear exam: PRESENT: normal external ear exam Mouth exam: PRESENT: moist, tongue midline Neck exam: PRESENT: full ROM. ABSENT: carotid bruit, JVD, lymphadenopathy, thyromegaly Respiratory exam: PRESENT: clear to auscultation [place] Cardiovascular exam: PRESENT: RRR. ABSENT: diastolic murmur, rubs, systolic murmur Vascular exam: PRESENT: normal capillary refill GI/Abdominal exam: PRESENT: normal bowel sounds, soft. ABSENT: distended, g uarding, mass, organolmegaly, rebound, tenderness Rectal exam: PRESENT: deferred Neurological exam: PRESENT: alert, awake, oriented to person, oriented to place, oriented to time, oriented to situation, CN II-XII grossly intact. ABSENT: motor sensory deficit Psychiatric exam: PRESENT: appropriate affect, normal mood. ABSENT: homicidal ideation, suicidal ideation Skin exam: PRESENT: dry, intact, warm. ABSENT: cyanosis, rash Results Laboratory Results: 08/15/20 06:12 08/15/20 06:12 Impressions: Foot X-Ray 08/14/20 14:49 IMPRESSION: Osteomyelitis in the 5th metatarsal. Assessment & Plan - Diagnosis (1) Osteomyelitis of foot, left, acute Is this a current diagnosis for this admission?: Yes (2) Type 2 diabetes mellitus with foot ulcer Qualifiers: Diabetes mellitus half-way insulin use: unspecified terminal gauger insulin use status Qualified Code(s): E11.621 - Type 2 diabetes mellitus with foot ulcer; L97.509 - Non-pressure chronic ulcer of other part of unspecified foot with unspecified severity Is this a current diagnosis for this admission?: Yes - Time Time Spent with patient: 15-24 minutes Level of Care: TELE Medications reviewed and adjusted accordingly: Yes Anticipated discharge: Home Anticipated DC Timeframe: Other - Plan Summary Plan Summary: Continues the IV antibiotic continues sliding scale
--- NOTE | 2020-08-16 09:53 | Operative Report ---
Operative Report DATE OF SURGERY: 08/16/20 PREOPERATIVE DIAGNOSIS: Osteomyelitis of the left remaining fifth metatarsal s[place] POSTOPERATIVE DIAGNOSIS: Same OPERATION: Debridement and amputation remaining left fifth metatarsal bone SURGEON: SHINE TUCKER ANESTHESIA: GA TISSUE REMOVED OR ALTERED: Fifth metatarsal bone COMPLICATIONS: None ESTIMATED BLOOD LOSS: 150 cc QUANTITATIVE BLOOD LOSS: 150 INTRAOPERATIVE FINDINGS: Evidence of fracture of the proximal metatarsal bone with osteomyelitis. Small amount of abscess noted around the bone PROCEDURE: After adequate general anesthesia patient was placed in supine position with the left leg slightly elevated on support at the area of the calf. The left foot and ankle and lower leg were then prepped and draped in the usual sterile fashion. After appropriate timeout was then called. Next a the previous incision for the ray amputation of the fifth toe was then extended proximally towards the area of the ankle. This was deepened down into the bone. The bone was palpated and noted to be fractured the proximal side. Pieces of the bone were then rongeured. Small amount of abscess from this area that was sent for ABRASIVE COATING MACHINE OPERATOR together were a few of the bones for. The bone was practically completely removed and some necrotic tissue surrounded also removed with the use of knife and rongeur. The area was then curetted. The edges of the previous incision was then trimmed. The cavity was then irrigated with saline solution. There was some oozing noted and this was then controlled with packing using IV uniforms soaked Kerlix. Present covered with sterile 4 x 4 ABD and Kerlix and wrapped further with John Paul bandage. Needle instruments and sponge counts were all correct. Patient tolerated procedure well brought to recovery room extubated in satisfactory condition.
[2020-08-16] MEDS ORDERED: KETOROLAC TROMETHAMINE INJ/PF 30 MG/1 ML SDV ONE (10:11)
[2020-08-16] MEDS ORDERED: ACETAMINOPHEN 1,000 MG/100 ML RTUPB IV ONE (10:11)
[2020-08-16] MEDS: AMLODIPINE BESYLATE 10 MG TABLET PO SCH (11:27)
[2020-08-16] MEDS: METFORMIN HCL 500 MG TABLET PO SCH ×2 (11:27→17:39)
[2020-08-16] MEDS: INSULIN NPH (ISOPHANE), HUMAN 100 UNIT/ML 3 ML SUBCUT SCH ×2 (11:28→17:40)
[2020-08-16] MEDS: LOSARTAN POTASSIUM 50 MG TABLET PO SCH (11:28)
[2020-08-16] MEDS: FERROUS SULFATE 325 MG TABLET PO SCH (11:28)
[2020-08-16] MEDS: ENOXAPARIN SODIUM INJ 40 MG/0.4 ML DISP.SYRIN SUBCUT SCH (11:31)
[2020-08-16 12:47] LABS: VANCOMYCIN,TROUGH 8.2 ug/mL (5.0-20.0)
[2020-08-16] MEDS: OXYCODONE-ACETAMINOPHEN 5-325 MG TABLET PO PRN (18:49)
[2020-08-17] MEDS: PIPERACILLIN SODIUM/TAZOBACTAM 3.375 GM in NORMAL SALINE 100 ML IV SCH ×4 (01:26→22:29)
[2020-08-17] MEDS: VANCOMYCIN HCL 1,500 MG in DEXTROSE 5%-WATER 250 ML IV SCH ×3 (03:33→20:43)
[2020-08-17] MEDS: OXYCODONE-ACETAMINOPHEN 5-325 MG TABLET PO PRN ×3 (05:10→23:27)
[2020-08-17] MEDS: PANTOPRAZOLE SODIUM 40 MG TABLET.DR PO SCH (05:11)
--- NOTE | 2020-08-17 05:24 | PDOC PROGRESS REPORT ---
Subjective Date:: 08/17/20 Subjective:: feels ok Reason For Visit: CELLULITIS OF FOOT,TYPE 2 DIABETES MELLITUS WITH Physical Exam Vital Signs: Temp Pulse Resp BP Pulse Ox 97.9 F 89 18 101/59 L 99 08/16/20 23:59 08/16/20 23:59 08/16/20 23:59 08/16/20 23:59 08/16/20 23:59 Intake & Output 08/15/20 08/16/20 08/17/20 06:59 06:59 06:59 Intake Total 2170 2708 3165 Output Total 100 Balance 2170 2708 3065 Weight 152.8 kg 152 kg 152 kg General appearance: PRESENT: no acute distress Head exam: PRESENT: normocephalic Eye exam: PRESENT: EOMI Ear exam: PRESENT: normal external ear exam Mouth exam: PRESENT: moist Teeth exam: PRESENT: poor dentation Neck exam: PRESENT: full ROM Respiratory exam: PRESENT: clear to auscultation [place] Cardiovascular exam: PRESENT: RRR Pulses: PRESENT: normal radial pulses, normal femoral pulses Vascular exam: PRESENT: normal capillary refill Breast: PRESENT: Normal GI/Abdominal exam: PRESENT: soft Rectal exam: PRESENT: deferred Extremities exam: PRESENT: other - left lateral foot incision clean surgical dressing removed wound base clean Musculoskeletal exam: PRESENT: full ROM Neurological exam: PRESENT: alert, awake, oriented to person, oriented to place Psychiatric exam: PRESENT: appropriate affect Skin exam: PRESENT: dry Results Laboratory Results: 08/15/20 06:12 08/15/20 06:12 Impressions: Foot X-Ray 08/14/20 14:49 IMPRESSION: Osteomyelitis in the 5th metatarsal. Assessment & Plan - Time Anticipated Discharge Disposition: Home, Self Care Anticipated Discharge Timeframe: unk - Plan Summary Plan Summary: s/p debridement of left diabetic foot infection pt doing ok wound clean will cont iwth wet to dry dressing changes
[2020-08-17 05:35] LABS: ABSOLUTE BASOPHILS # (AUTO) 0.1 10^3/uL (0.0-0.2); ABSOLUTE EOSINOPHILS # (AUTO) 0.3 10^3/uL (0.0-0.6); ABSOLUTE LYMPHOCYTES (AUTO) 1.8 10^3/uL (0.5-4.7); ABSOLUTE MONOCYTES (AUTO) 0.7 10^3/uL (0.1-1.4); ABSOLUTE NEUT (AUTO) 7.2 10^3/uL (1.7-8.2); BASOPHILS % (AUTO) 0.7 % (0-2); EOSINOPHILS % (AUTO) 2.8 % (0-6); HEMATOCRIT 22.2 % (36.0-47.0); LYMPHOCYTES % (AUTO) 17.5 % (13-45); MEAN CORPUSCULAR HEMOGLOBIN 22.9 pg (27.0-33.4); MEAN CORPUSCULAR HGB CONC 33.4 g/dL (32.0-36.0); MEAN CORPUSCULAR VOLUME 69 fl (80-97); MONOCYTES % (AUTO) 6.9 % (3-13); PLATELET COUNT 457 10^3/uL (150-450); RED BLOOD COUNT 3.23 10^6/uL (3.72-5.28); RED CELL DISTRIBUTION WIDTH 17.8 % (11.5-14.0); SEGMENTED NEUTROPHILS % (AUTO) 72.1 % (42-78); TOTAL CELLS COUNTED % (AUTO) 100 %
[2020-08-17 05:37] LABS: HEMOGLOBIN 7.4 g/dL (12.0-15.5)
[2020-08-17 06:06] LABS: ANION GAP 8 (5-19); BLOOD UREA NITROGEN 7 mg/dL (7-20); CALCIUM 8.7 mg/dL (8.4-10.2); CARBON DIOXIDE 26 mmol/L (22-30); CHLORIDE 103 mmol/L (98-107); GLUCOSE 119 mg/dL (75-110); POTASSIUM 3.7 mmol/L (3.6-5.0)
[2020-08-17] MEDS: INSULIN LISPRO 100 UNIT/ML 3 ML VIAL SUBCUT SCH ×4 (09:33→22:29)
[2020-08-17] MEDS: NORMAL SALINE 1000 ML 1,000 ML IV PRN ×2 (09:35→20:43)
[2020-08-17] MEDS: FERROUS SULFATE 325 MG TABLET PO SCH (09:35)
[2020-08-17] MEDS: METFORMIN HCL 500 MG TABLET PO SCH ×2 (09:36→18:35)
[2020-08-17] MEDS: AMLODIPINE BESYLATE 10 MG TABLET PO SCH (09:36)
[2020-08-17] MEDS: LOSARTAN POTASSIUM 50 MG TABLET PO SCH (09:36)
[2020-08-17] MEDS: ENOXAPARIN SODIUM INJ 40 MG/0.4 ML DISP.SYRIN SUBCUT SCH (09:37)
[2020-08-17] MEDS: INSULIN NPH (ISOPHANE), HUMAN 100 UNIT/ML 3 ML SUBCUT SCH ×2 (09:37→18:35)
--- NOTE | 2020-08-17 09:40 | PDOC PROGRESS REPORT ---
Subjective Date:: 08/17/20 Subjective:: Patient is currently doing well status post surgery for the foot ulcers Patient hemoglobin is 7.4 No chest pain no short of breath Reason For Visit: CELLULITIS OF FOOT,TYPE 2 DIABETES MELLITUS WITH Physical Exam Vital Signs: Temp Pulse Resp BP Pulse Ox 97.7 F 87 19 126/84 H 99 08/17/20 07:39 08/17/20 07:39 08/17/20 07:39 08/17/20 07:39 08/17/20 07:39 Intake & Output 08/16/20 08/17/20 08/18/20 06:59 06:59 06:59 Intake Total 2708 3625 Output Total 100 Balance 2708 3525 Weight 152 kg 136.8 kg General appearance: PRESENT: no acute distress Eye exam: PRESENT: PERRLA Mouth exam: PRESENT: neck supple Respiratory exam: PRESENT: clear to auscultation [place] Cardiovascular exam: PRESENT: +S1, +S2 GI/Abdominal exam: PRESENT: normal bowel sounds, soft Additional comments: Dressing is intact Neurological exam: PRESENT: alert, awake, oriented to person, oriented to place, oriented to time Results Laboratory Results: 08/17/20 05:20 08/17/20 05:20 08/14/20 08/17/20 08/17/20 15:10 05:20 05:20 WBC 11.9 H 10.0 RBC 3.95 3.23 L Hgb 9.2 L 7.4 L Hct 27.5 L 22.2 L MCV 70 L 69 L MCH 23.2 L 22.9 L MCHC 33.4 33.4 RDW 17.4 H 17.8 H Plt Count 471 H 457 H Seg Neutrophils % 73.9 72.1 Sodium 136.8 L Potassium 3.7 Chloride 103 Carbon Dioxide 26 Anion Gap 8 BUN 7 Creatinine 0.69 Est GFR ( Amer) > 60 Glucose 119 H Calcium 8.7 08/15/20 00:20 Foot - Left Gram Stain - Final 08/15/20 00:20 Foot - Left Wound Culture - Final Group B Beta Streptococcus Skin Miladys 08/14/20 15:10 Blood Blood Culture (PCR) - Final Impressions: Foot X-Ray 08/14/20 14:49 IMPRESSION: Osteomyelitis in the 5th metatarsal. Assessment & Plan - Diagnosis (1) Osteomyelitis of foot, left, acute Is this a current diagnosis for this admission?: Yes Plan: Continues to IV antibiotic (2) Type 2 diabetes mellitus with foot ulcer Qualifiers: Diabetes mellitus half-way insulin use: unspecified salvage determiner insulin use status Qualified Code(s): E11.621 - Type 2 diabetes mellitus with foot ulcer; L97.509 - Non-pressure chronic ulcer of other part of unspecified foot with unspecified severity Is this a current diagnosis for this admission?: Yes Plan: Continues to current medications (3) Anemia Qualifiers: Anemia type: unspecified type Qualified Code(s): D64.9 - Anemia, unspecified Is this a current diagnosis for this admission?: Yes Plan: The recent surgery will transfuse 1 unit of blood (4) HTN (hypertension) Qualifiers: Hypertension type: essential hypertension Qualified Code(s): I10 - Essential (primary) hypertension Is this a current diagnosis for this admission?: Yes - Time Time Spent with patient: 15-24 minutes Level of Care: IMCU Medications reviewed and adjusted accordingly: Yes Anticipated discharge: Home Anticipated DC Timeframe: Other - Plan Summary Plan Summary: Continues IV antibiotics follow the culture and sensitivity
--- NOTE | 2020-08-17 19:51 | PDOC PROGRESS REPORT ---
Subjective Date:: 08/17/20 Subjective:: Less pains Reason For Visit: CELLULITIS OF FOOT,TYPE 2 DIABETES MELLITUS WITH Physical Exam Vital Signs: Temp Pulse Resp BP Pulse Ox 98.0 F 74 16 118/70 100 08/17/20 18:25 08/17/20 18:25 08/17/20 18:25 08/17/20 18:25 08/17/20 18:25 Intake & Output 08/16/20 08/17/20 08/18/20 06:59 06:59 06:59 Intake Total 3708 3625 951 Output Total 100 Balance 3708 3525 951 Weight 152 kg 136.8 kg Exam: Foot looks less swollen. Operative site looks clean. It was repacked with wet-to-dry dressings. Results Laboratory Results: 08/17/20 05:20 08/17/20 05:20 08/14/20 08/17/20 08/17/20 15:10 05:20 05:20 WBC 11.9 H 10.0 RBC 3.95 3.23 L Hgb 9.2 L 7.4 L Hct 27.5 L 22.2 L MCV 70 L 69 L MCH 23.2 L 22.9 L MCHC 33.4 33.4 RDW 17.4 H 17.8 H Plt Count 471 H 457 H Seg Neutrophils % 73.9 72.1 Sodium 136.8 L Potassium 3.7 Chloride 103 Carbon Dioxide 26 Anion Gap 8 BUN 7 Creatinine 0.69 Est GFR ( Amer) > 60 Glucose 119 H Calcium 8.7 Blood Type Antibody Screen 08/17/20 09:55 WBC RBC Hgb Hct MCV MCH MCHC RDW Plt Count Seg Neutrophils % Sodium Potassium Chloride Carbon Dioxide Anion Gap BUN Creatinine Est GFR ( Amer) Glucose Calcium Blood Type B POSITIVE Antibody Screen NEGATIVE 08/15/20 00:20 Foot - Left Gram Stain - Final 08/15/20 00:20 Foot - Left Wound Culture - Final Group B Beta Streptococcus Skin Miladys 08/14/20 15:10 Blood Blood Culture (PCR) - Final Impressions: Foot X-Ray 08/14/20 14:49 IMPRESSION: Osteomyelitis in the 5th metatarsal. Assessment & Plan - Diagnosis (1) Type 2 diabetes mellitus Is this a current diagnosis for this admission?: Yes (2) Osteomyelitis left fifth metatarsal bone Is this a current diagnosis for this admission?: Yes - Time Anticipated Discharge Disposition: Home with Home Health Anticipated Discharge Timeframe: within 72 hours - Inpatient Certification Medical Necessity: Need for IV Antibiotics, Risk of Complication if Not Cared For in Hospital - Plan Summary Plan Summary: 35-year-old female diabetic postop day #2 for removal of left fifth metatarsal with osteomyelitis. The wound looks clean. There is also less swelling of the foot. Plans: Continue with wet-to-dry dressings every 12 hours. We will reevaluate in about 24 hours to see if wound healing can be helped by a wound VAC Continue with the IV antibiotics.
[2020-08-17 20:56] LABS: VANCOMYCIN,TROUGH 9.1 ug/mL (5.0-20.0)
[2020-08-18] MEDS: PIPERACILLIN SODIUM/TAZOBACTAM 3.375 GM in NORMAL SALINE 100 ML IV SCH ×5 (00:50→23:10)
[2020-08-18] MEDS: OXYCODONE-ACETAMINOPHEN 5-325 MG TABLET PO PRN ×3 (03:48→15:09)
[2020-08-18] MEDS: VANCOMYCIN HCL 1,500 MG in DEXTROSE 5%-WATER 250 ML IV SCH ×3 (03:49→17:04)
[2020-08-18] MEDS: PANTOPRAZOLE SODIUM 40 MG TABLET.DR PO SCH (05:29)
[2020-08-18 06:08] LABS: ANION GAP 10 (5-19); BLOOD UREA NITROGEN 6 mg/dL (7-20); CALCIUM 8.9 mg/dL (8.4-10.2); CARBON DIOXIDE 25 mmol/L (22-30); CHLORIDE 103 mmol/L (98-107); GLUCOSE 101 mg/dL (75-110); POTASSIUM 3.7 mmol/L (3.6-5.0)
[2020-08-18] MEDS: INSULIN LISPRO 100 UNIT/ML 3 ML VIAL SUBCUT SCH ×4 (07:45→23:10)
[2020-08-18] MEDS: INSULIN NPH (ISOPHANE), HUMAN 100 UNIT/ML 3 ML SUBCUT SCH ×2 (08:42→17:14)
--- NOTE | 2020-08-18 10:42 | PDOC PROGRESS REPORT ---
Subjective Date:: 08/18/20 Reason For Visit: CELLULITIS OF FOOT,TYPE 2 DIABETES MELLITUS WITH Patient is, voiding, taking Percocet as needed pain Physical Exam Vital Signs: Temp Pulse Resp BP Pulse Ox 97.7 F 78 16 123/73 100 08/18/20 00:13 08/18/20 07:00 08/18/20 00:13 08/18/20 00:13 08/18/20 00:13 Intake & Output 08/17/20 08/18/20 08/19/20 06:59 06:59 06:59 Intake Total 3625 4051 Output Total 100 Balance 3525 4051 Weight 136.8 kg 134.9 kg General appearance: PRESENT: other - Anxious Musculoskeletal exam: PRESENT: other - Left foot dressing removed. Packing removed. The wound is clean, no foul smell; the foot is moderately edematous. There is some early granulation tissue. Wound repacked, fair amount of anxiety during packing Results Laboratory Results: 08/17/20 05:20 08/18/20 04:38 08/17/20 08/18/20 09:55 04:38 Sodium 137.6 Potassium 3.7 Chloride 103 Carbon Dioxide 25 Anion Gap 10 BUN 6 L Creatinine 0.81 Est GFR ( Amer) > 60 Glucose 101 Calcium 8.9 Blood Type B POSITIVE Antibody Screen NEGATIVE 08/14/20 15:10 Blood Blood Culture (PCR) - Final 08/15/20 00:20 Foot - Left Gram Stain - Final 08/15/20 00:20 Foot - Left Wound Culture - Final Group B Beta Streptococcus Skin Miladys Impressions: Foot X-Ray 08/14/20 14:49 IMPRESSION: Osteomyelitis in the 5th metatarsal. Assessment & Plan - Diagnosis (1) Osteomyelitis left fifth metatarsal bone Is this a current diagnosis for this admission?: Yes Plan: Impression: Patient 48 hours status post left fifth ray amputation, wound packed open, doing well, clean dry smell. Growing Streptococcus, on vancomycin and Zosyn Plan: 1. Continue local wound care, dressing changes; patient may be an appropriate candidate for wound VAC therapy on an outpatient basis 2. We will start stool softener. 3. PT ordered to get patient up ambulating, with a walker, weightbearing left heel only (2) Anemia Qualifiers: Anemia type: unspecified type Qualified Code(s): D64.9 - Anemia, unspe cified (3) Type 2 diabetes mellitus Is this a current diagnosis for this admission?: Yes (4) Morbid (severe) obesity due to excess calories Is this a current diagnosis for this admission?: Yes - Time Anticipated Discharge Disposition: Home, Self Care Anticipated Discharge Timeframe: within 48 hours
[2020-08-18] MEDS: NORMAL SALINE 1000 ML 1,000 ML IV PRN (11:20)
[2020-08-18] MEDS: DOCUSATE SODIUM 100 MG CAPSULE PO SCH ×2 (12:00→17:14)
[2020-08-18] MEDS: AMLODIPINE BESYLATE 10 MG TABLET PO SCH (12:00)
[2020-08-18] MEDS: LOSARTAN POTASSIUM 50 MG TABLET PO SCH (12:01)
[2020-08-18] MEDS: METFORMIN HCL 500 MG TABLET PO SCH ×2 (12:01→17:14)
[2020-08-18] MEDS: FERROUS SULFATE 325 MG TABLET PO SCH (12:01)
[2020-08-18] MEDS: ENOXAPARIN SODIUM INJ 40 MG/0.4 ML DISP.SYRIN SUBCUT SCH (12:02)
--- NOTE | 2020-08-18 17:49 | PDOC PROGRESS REPORT ---
Subjective Date:: 08/18/20 Subjective:: s/p left 5th metatarsal bone complete amputation. No fever or chills. No nausea, vomiting, or abdominal pain. No chest pain or difficulty with breathing. Hyperglycemia persist. Wound culture grew group B beta streptococcus and blood culture x 1 bottle Gram positive silver. Reason For Visit: CELLULITIS OF FOOT,TYPE 2 DIABETES MELLITUS WITH Physical Exam Vital Signs: Temp Pulse Resp BP Pulse Ox 97.9 F 86 17 133/81 H 100 08/18/20 16:48 08/18/20 16:48 08/18/20 16:48 08/18/20 16:48 08/18/20 16:48 Intake & Output 08/17/20 08/18/20 08/19/20 06:59 06:59 06:59 Intake Total 3625 5051 860 Output Total 100 Balance 3525 5051 860 Weight 136.8 kg 134.9 kg 145.9 kg General appearance: PRESENT: morbidly obese Head exam: PRESENT: atraumatic, normocephalic Eye exam: PRESENT: conjunctiva pink. ABSENT: scleral icterus Mouth exam: PRESENT: moist Respiratory exam: PRESENT: clear to auscultation [place] Cardiovascular exam: PRESENT: RRR, +S1, +S2. ABSENT: diastolic murmur, rubs, systolic murmur Vascular exam: ABSENT: pallor GI/Abdominal exam: PRESENT: normal bowel sounds, soft. ABSENT: tenderness Extremities exam: PRESENT: pedal edema - left foot and lower leg comparatively improving Musculoskeletal exam: PRESENT: ambulatory - with walker Neurological exam: PRESENT: alert, awake Skin exam: PRESENT: dry, warm, other - left foot dressing is satisfactory. Results Laboratory Results: 08/17/20 05:20 08/18/20 04:38 08/18/20 04:38 Sodium 137.6 Potassium 3.7 Chloride 103 Carbon Dioxide 25 Anion Gap 10 BUN 6 L Creatinine 0.81 Est GFR ( Amer) > 60 Glucose 101 Calcium 8.9 08/14/20 15:10 Blood Blood Culture (PCR) - Final Impressions: Foot X-Ray 08/14/20 14:49 IMPRESSION: Osteomyelitis in the 5th metatarsal. Assessment & Plan - Diagnosis (1) Osteomyelitis of foot, left, acute Is this a current diagnosis for this admission?: Yes (2) Probable sepsis Is this a current diagnosis for this admission?: Yes (3) Uncontrolled type 2 diabetes mellitus Qualifiers: Glycemic state: with hyperglycemia Qualified Code(s): E11.65 - Type 2 diabetes mellitus with hyperglycemia Is this a current diagnosis for this admission?: Yes (4) HTN (hypertension) Qualifiers: Hypertension type: essential hypertension Qualified Code(s): I10 - Essential (primary) hypertension Is this a current diagnosis for this admission?: Yes (5) Morbid (severe) obesity due to excess calories Is this a current diagnosis for this admission?: Yes (6) Morbid obesity with body mass index of 40.0-44.9 in adult Is this a current diagnosis for this admission?: Yes Plan: continue current caloric restriction and support therapy (7) Anemia of chronic disease Is this a current diagnosis for this admission?: Yes Plan: Obtain CBC in am. - Time Time Spent with patient: 25-34 minutes Level of Care: TELE Medications reviewed and adjusted accordingly: Yes Anticipated discharge: Home with Homehealth Anticipated DC Timeframe: within 72 hours - Inpatient Certification Based on my medical assessment, after consideration of the patient's comorbidities, presenting symptoms, or acuity I expect that the services needed warrant INPATIENT care.: Yes I certify that my determination is in accordance with my understanding of Medicare's requirements for reasonable and necessary INPATIENT services [42 CFR 412.3e].: Yes Medical Necessity: Significant Comorbidiites Make Outpatient Treatment Too Risky, Need Close Monitoring Due to Risk of Patient Decompensation, Need For IV Fluids, Need For Continuous Telemetry Monitoring, Need for Pain Control, Need for IV Antibiotics, Risk of Complication if Not Cared For in Hospital, Risk of Diagnosis Which Will Require Inpatient Eval/Care/Monitoring 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 Obtain CBC in Am with consideration of PRBC transfusion if hemoglobin continue downward trend.
[2020-08-19] MEDS: OXYCODONE-ACETAMINOPHEN 5-325 MG TABLET PO PRN ×5 (00:20→22:28)
[2020-08-19] MEDS: VANCOMYCIN HCL 1,500 MG in DEXTROSE 5%-WATER 250 ML IV SCH ×3 (02:53→17:26)
[2020-08-19 05:02] LABS: ABSOLUTE BASOPHILS # (AUTO) 0.1 10^3/uL (0.0-0.2); ABSOLUTE EOSINOPHILS # (AUTO) 0.4 10^3/uL (0.0-0.6); ABSOLUTE LYMPHOCYTES (AUTO) 1.7 10^3/uL (0.5-4.7); ABSOLUTE MONOCYTES (AUTO) 0.7 10^3/uL (0.1-1.4); ABSOLUTE NEUT (AUTO) 6.5 10^3/uL (1.7-8.2); BASOPHILS % (AUTO) 0.6 % (0-2); EOSINOPHILS % (AUTO) 4.2 % (0-6); HEMATOCRIT 24.7 % (36.0-47.0); LYMPHOCYTES % (AUTO) 17.7 % (13-45); MEAN CORPUSCULAR HEMOGLOBIN 23.2 pg (27.0-33.4); MEAN CORPUSCULAR HGB CONC 32.3 g/dL (32.0-36.0); MEAN CORPUSCULAR VOLUME 72 fl (80-97); PLATELET COUNT 481 10^3/uL (150-450); RED BLOOD COUNT 3.45 10^6/uL (3.72-5.28); SEGMENTED NEUTROPHILS % (AUTO) 69.5 % (42-78); TOTAL CELLS COUNTED % (AUTO) 100 %; WHITE BLOOD COUNT 9.4 10^3/uL (4.0-10.5)
[2020-08-19 05:17] LABS: ANION GAP 8 (5-19); BLOOD UREA NITROGEN 7 mg/dL (7-20); CALCIUM 8.8 mg/dL (8.4-10.2); CARBON DIOXIDE 28 mmol/L (22-30); CHLORIDE 103 mmol/L (98-107); GLUCOSE 130 mg/dL (75-110); POTASSIUM 3.8 mmol/L (3.6-5.0)
[2020-08-19] MEDS: PANTOPRAZOLE SODIUM 40 MG TABLET.DR PO SCH (05:26)
[2020-08-19] MEDS: PIPERACILLIN SODIUM/TAZOBACTAM 3.375 GM in NORMAL SALINE 100 ML IV SCH ×4 (05:26→17:25)
--- NOTE | 2020-08-19 08:18 | PDOC PROGRESS REPORT ---
Subjective Date:: 08/19/20 Subjective:: mild pains left foot operative site Reason For Visit: CELLULITIS OF FOOT,TYPE 2 DIABETES MELLITUS WITH Physical Exam Vital Signs: Temp Pulse Resp BP Pulse Ox 97.9 F 80 16 124/76 100 08/18/20 23:17 08/19/20 07:00 08/18/20 23:17 08/18/20 23:17 08/18/20 23:17 Intake & Output 08/18/20 08/19/20 08/20/20 06:59 06:59 06:59 Intake Total 5051 1940 Balance 5051 1940 Weight 134.9 kg 155.4 kg Exam: Dressings changed wit wet to dry. Wound looks clean and swelling of foot less today. Results Laboratory Results: 08/19/20 04:27 08/19/20 04:27 08/19/20 08/19/20 04:27 04:27 WBC 9.4 RBC 3.45 L Hgb 8.0 L Hct 24.7 L MCV 72 L MCH 23.2 L MCHC 32.3 RDW 19.0 H Plt Count 481 H Seg Neutrophils % 69.5 Sodium 138.8 Potassium 3.8 Chloride 103 Carbon Dioxide 28 Anion Gap 8 BUN 7 Creatinine 0.87 Est GFR ( Amer) > 60 Glucose 130 H Calcium 8.8 08/14/20 15:10 Blood Blood Culture (PCR) - Final Impressions: Foot X-Ray 08/14/20 14:49 IMPRESSION: Osteomyelitis in the 5th metatarsal. Assessment & Plan - Diagnosis (1) Type 2 diabetes mellitus Is this a current diagnosis for this admission?: Yes (2) Osteomyelitis left fifth metatarsal bone Is this a current diagnosis for this admission?: Yes - Time Anticipated Discharge Disposition: Home with Home Health Anticipated Discharge Timeframe: within 48 hours Critical Time spent with patient: 15-24 minutes - Inpatient Certification Medical Necessity: Need for IV Antibiotics - Plan Summary Plan Summary: POD 3 post amputation left 5th MT bone for osteomyelitis. B strep sensitive to Vanco. Ordered Picc line for IV Vanco daily at home for 4-6 weeks Arrange wound vac and follow up wound care center. We will sign off. Call for questions
[2020-08-19] MEDS: INSULIN LISPRO 100 UNIT/ML 3 ML VIAL SUBCUT SCH ×4 (08:27→22:19)
[2020-08-19] MEDS: METFORMIN HCL 500 MG TABLET PO SCH ×2 (09:39→17:25)
[2020-08-19] MEDS: LOSARTAN POTASSIUM 50 MG TABLET PO SCH (09:39)
[2020-08-19] MEDS: DOCUSATE SODIUM 100 MG CAPSULE PO SCH ×2 (09:39→17:25)
[2020-08-19] MEDS: FERROUS SULFATE 325 MG TABLET PO SCH (09:39)
[2020-08-19] MEDS: AMLODIPINE BESYLATE 10 MG TABLET PO SCH (09:39)
[2020-08-19] MEDS: NORMAL SALINE 1000 ML 1,000 ML IV PRN (09:43)
[2020-08-19] MEDS: INSULIN NPH (ISOPHANE), HUMAN 100 UNIT/ML 3 ML SUBCUT SCH ×2 (09:45→17:34)
[2020-08-19] MEDS: ENOXAPARIN SODIUM INJ 40 MG/0.4 ML DISP.SYRIN SUBCUT SCH (09:45)
[2020-08-19] MEDS ORDERED: NORMAL SALINE 10 ML SDV (AFTER EACH USE) IV PRN (12:30)
--- NOTE | 2020-08-19 13:06 | RADIOLOGY REPORT (SQ) ---
EXAM DESCRIPTION: PICC INSERTION IMAGES COMPLETED DATE/TIME: 08/19/2020 12:02 pm REASON FOR STUDY: IV ABX THERAPY AT HOME COMPARISON: None. FLUOROSCOPY TIME: 37 seconds of fluoroscopy was used. 1 images saved to PACS. TECHNIQUE: Fluoroscopic and ultrasound guided PICC placement. LIMITATIONS: None. PROCEDURE: After written consent and assessment were obtained, the patient was brought into the fluo roscopy room and placed supine on the table. Ultrasound evaluation of potential access sites were per formed. After successfully identifying a patent left basilic vein, the left arm was prepped and drape d in a sterile fashion along with the ultrasound probe. The entry site was anesthetized with 1% lidoc alberto. A 21 gauge 7 cm needle was advanced through the skin and into the basilic vein under live ultra sound guidance. An ultrasound image was saved to PACS confirming access site. A .018 guide wire was then inserted through the needle and into the venous system. The needle was then removed and an 11 b lade scalpel was used to make a 1cm skin incision. A 5 fr peel-away sheath was advanced over the wir e and into the venous system. A measurement was then made using the existing wire and live fluoroscop ic guidance. The wire was then removed and trimmed. The PICC was advanced through the peel-away sheat h and into the venous system. The peel-away sheath was removed and the catheter was adhered to the pa tients arm with a stat lock. The catheter was then aspirated and flushed and a sterile bandage was pl aced over the access site. A fluoroscopic spot image was saved to PACS confirming the catheter tip w ithin the superior vena cava. IMPRESSION: SUCCESSFUL PLACEMENT OF A 5 FR DUAL LUMEN 53 CM PICC IN THE LEFT BASILIC VEIN. COMMENT: Patient medication list reviewed: Yes- Quality ID# 130:Eligible professional attests to doc umenting in the medical record they obtained, updated, or reviewed the patient's current medications. . Quality ID 145: Final reports for procedures using fluoroscopy that document radiation exposure michael michele, or exposure time and number of fluorographic images (if radiation exposure indices are not avail able) Quality ID #76: The patient was prepped and draped using maximum sterile barrier technique including cap, mask, sterile gown, sterile gloves, a large sterile sheet, hand hygiene, and 2% Chlorhexidine fo r cutaneous antisepsis. When ultrasound is used, sterile ultrasound techniques are followed requiring sterile gel and sterile probes. TECHNICAL DOCUMENTATION: JOB ID: [id number] 2010 [employer]- All Rights Reserved rev-01/27 Reading location - IP/workstation name: [email or web address]
[2020-08-19] MEDS: AMOXICILLIN TR/POT CLAVULANATE 875-125 MG TAB PO SCH (22:18)
[2020-08-19] MEDS: NORMAL SALINE 10 ML SDV (SCHEDULED) IV SCH (22:19)
[2020-08-20] MEDS: PANTOPRAZOLE SODIUM 40 MG TABLET.DR PO SCH (06:41)
--- NOTE | 2020-08-20 08:32 | PDOC PROGRESS REPORT ---
Subjective Date:: 08/20/20 Subjective:: feels ok awaiting wound vac Reason For Visit: CELLULITIS OF FOOT,TYPE 2 DIABETES MELLITUS WITH Physical Exam Vital Signs: Temp Pulse Resp BP Pulse Ox 98.9 F 76 16 144/74 H 99 08/20/20 00:15 08/20/20 07:00 08/20/20 00:15 08/20/20 00:15 08/20/20 00:15 Intake & Output 08/19/20 08/20/20 08/21/20 06:59 06:59 06:59 Intake Total 2940 1445 Balance 2940 1445 Weight 155.4 kg 156.7 kg General appearance: PRESENT: no acute distress Head exam: PRESENT: normocephalic Eye exam: PRESENT: EOMI Ear exam: PRESENT: normal external ear exam Mouth exam: PRESENT: moist Neck exam: PRESENT: full ROM Respiratory exam: PRESENT: clear to auscultation [place] Cardiovascular exam: PRESENT: RRR Pulses: PRESENT: normal radial pulses, normal femoral pulses Breast: PRESENT: Normal GI/Abdominal exam: PRESENT: soft Rectal exam: PRESENT: deferred Musculoskeletal exam: PRESENT: other Neurological exam: PRESENT: alert, awake, oriented to person, oriented to place Psychiatric exam: PRESENT: appropriate affect Skin exam: PRESENT: dry Results Laboratory Results: 08/19/20 04:27 08/19/20 04:27 08/14/20 16:42 Blood Blood Culture - Final NO GROWTH IN 5 DAYS 08/14/20 15:10 Blood Blood Culture (PCR) - Final Impressions: Foot X-Ray 08/14/20 14:49 IMPRESSION: Osteomyelitis in the 5th metatarsal. PICC Line Insertion 08/19/20 00:00 IMPRESSION: SUCCESSFUL PLACEMENT OF A 5 FR DUAL LUMEN 53 CM PICC IN THE LEFT BASILIC VEIN. Assessment & Plan - Time Anticipated Discharge Disposition: Home, Self Care Anticipated Discharge Timeframe: unk - Plan Summary Plan Summary: s/p left foot debridement for osteo now on oral abx awiting wound vac can be dischared home when wound vac placed
[2020-08-20] MEDS: INSULIN LISPRO 100 UNIT/ML 3 ML VIAL SUBCUT SCH ×4 (09:10→21:29)
[2020-08-20] MEDS: INSULIN NPH (ISOPHANE), HUMAN 100 UNIT/ML 3 ML SUBCUT SCH ×2 (09:16→17:43)
[2020-08-20] MEDS: ENOXAPARIN SODIUM INJ 40 MG/0.4 ML DISP.SYRIN SUBCUT SCH (09:16)
[2020-08-20] MEDS: LOSARTAN POTASSIUM 50 MG TABLET PO SCH (09:16)
[2020-08-20] MEDS: DOCUSATE SODIUM 100 MG CAPSULE PO SCH ×2 (09:17→17:42)
[2020-08-20] MEDS: METFORMIN HCL 500 MG TABLET PO SCH ×2 (09:17→17:42)
[2020-08-20] MEDS: NORMAL SALINE 10 ML SDV (SCHEDULED) IV SCH ×2 (09:17→21:30)
[2020-08-20] MEDS: FERROUS SULFATE 325 MG TABLET PO SCH (09:17)
[2020-08-20] MEDS: AMLODIPINE BESYLATE 10 MG TABLET PO SCH (09:19)
[2020-08-20] MEDS: AMOXICILLIN TR/POT CLAVULANATE 875-125 MG TAB PO SCH ×2 (09:22→21:30)
--- NOTE | 2020-08-20 11:20 | RADIOLOGY REPORT (SQ) ---
EXAM DESCRIPTION: FOOT LEFT 2 VIEWS IMAGES COMPLETED DATE/TIME: 08/20/2020 11:11 am REASON FOR STUDY: Rule out Osteomyelitis COMPARISON: 08/14/2020. NUMBER OF VIEWS: Three views. TECHNIQUE: AP, lateral and oblique without weight bearing radiographic images acquired of the left f oot. LIMITATIONS: None. FINDINGS: MINERALIZATION: Normal. BONES: Interval amputation of the 5th metatarsal. No acute fracture or dislocation. No worrisome bon e lesions. No significant osteophytes. JOINTS: No erosions. No sherwin-articular osteopenia. No chondrocalcinosis. SOFT TISSUES: Postoperative changes. OTHER: No other significant finding. IMPRESSION: INTERVAL AMPUTATION OF THE 5TH METATARSAL. NO OTHER SIGNIFICANT BONY FINDINGS. TECHNICAL DOCUMENTATION: JOB ID: [id number] 2010 [employer]- All Rights Reserved Reading location - IP/workstation name: [email or web address]
--- NOTE | 2020-08-20 18:12 | PDOC PROGRESS REPORT ---
Subjective Date:: 08/19/20 Subjective:: No fever or chills. No nausea, vomiting, or abdominal pain. No chest pain or difficulty with breathing. Reason For Visit: CELLULITIS OF FOOT,TYPE 2 DIABETES MELLITUS WITH Physical Exam Vital Signs: Temp Pulse Resp BP Pulse Ox 98.2 F 88 12 127/74 H 100 08/19/20 10:56 08/19/20 14:00 08/19/20 10:56 08/19/20 10:56 08/19/20 10:56 Intake & Output 08/18/20 08/19/20 08/20/20 06:59 06:59 06:59 Intake Total 5051 2940 995 Balance 5051 2940 995 Weight 134.9 kg 155.4 kg Physical Exam: General appearance: PRESENT: morbidly obese Head exam: PRESENT: atraumatic, normocephalic Eye exam: PRESENT: conjunctiva pink. ABSENT: scleral icterus Mouth exam: PRESENT: moist Respiratory exam: PRESENT: clear to auscultation [place] Cardiovascular exam: PRESENT: RRR, +S1, +S2. ABSENT: diastolic murmur, rubs, systolic murmur Vascular exam: ABSENT: pallor GI/Abdominal exam: PRESENT: normal bowel sounds, soft. ABSENT: tenderness Extremities exam: PRESENT: pedal edema - left foot and lower leg comparatively improving Musculoskeletal exam: PRESENT: ambulatory - with walker Neurological exam: PRESENT: alert, awake Skin exam: PRESENT: dry, warm, other - left foot dressing is satisfactory. Results Laboratory Results: 08/19/20 04:27 08/19/20 04:27 08/19/20 08/19/20 04:27 04:27 WBC 9.4 RBC 3.45 L Hgb 8.0 L Hct 24.7 L MCV 72 L MCH 23.2 L MCHC 32.3 RDW 19.0 H Plt Count 481 H Seg Neutrophils % 69.5 Sodium 138.8 Potassium 3.8 Chloride 103 Carbon Dioxide 28 Anion Gap 8 BUN 7 Creatinine 0.87 Est GFR ( Amer) > 60 Glucose 130 H Calcium 8.8 08/14/20 16:42 Blood Blood Culture - Final NO GROWTH IN 5 DAYS 08/14/20 15:10 Blood Blood Culture (PCR) - Final Impressions: Foot X-Ray 08/14/20 14:49 IMPRESSION: Osteomyelitis in the 5th metatarsal. PICC Line Insertion 08/19/20 00:00 IMPRESSION: SUCCESSFUL PLACEMENT OF A 5 FR DUAL LUMEN 53 CM PICC IN THE LEFT BASILIC VEIN. Assessment & Plan - Diagnosis (1) Osteomyelitis of foot, left, acute Is this a current diagnosis for this admission?: Yes (2) Probable sepsis Is this a current diagnosis for this admission?: Yes (3) Uncontrolled type 2 diabetes mellitus Qualifiers: Glycemic state: with hyperglycemia Qualified Code(s): E11.65 - Type 2 diabetes mellitus with hyperglycemia Is this a current diagnosis for this admission?: Yes (4) HTN (hypertension) Qualifiers: Hypertension type: essential hypertension Qualified Code(s): I10 - Essent ial (primary) hypertension Is this a current diagnosis for this admission?: Yes (5) Morbid (severe) obesity due to excess calories Is this a current diagnosis for this admission?: Yes (6) Morbid obesity with body mass index of 40.0-44.9 in adult Is this a current diagnosis for this admission?: Yes (7) Anemia of chronic disease Is this a current diagnosis for this admission?: Yes - Time Time Spent with patient: 25-34 minutes Level of Care: TELE Medications reviewed and adjusted accordingly: Yes Anticipated DC Timeframe: within 24 hours - Inpatient Certification Based on my medical assessment, after consideration of the patient's comorbidities, presenting symptoms, or acuity I expect that the services needed warrant INPATIENT care.: Yes I certify that my determination is in accordance with my understanding of Medicare's requirements for reasonable and necessary INPATIENT services [42 CFR 412.3e].: Yes Medical Necessity: Significant Comorbidiites Make Outpatient Treatment Too Risky, Need Close Monitoring Due to Risk of Patient Decompensation, Need For Continuous Telemetry Monitoring, Need for Pain Control, Need for IV Antibiotics, Risk of Complication if Not Cared For in Hospital, Risk of Diagnosis Which Will Require Inpatient Eval/Care/Monitoring 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 Start on Augmentin 875/125 mg p.o bid. Maintain on all other current medication management.
--- NOTE | 2020-08-20 18:15 | PDOC PROGRESS REPORT ---
Subjective Date:: 08/20/20 Subjective:: No chest pain or difficulty with breathing. No fever or chills. No nausea, vomiting, or abdominal pain. Reason For Visit: CELLULITIS OF FOOT,TYPE 2 DIABETES MELLITUS WITH Physical Exam Vital Signs: Temp Pulse Resp BP Pulse Ox 98.1 F 104 H 18 142/91 H 100 08/20/20 13:05 08/20/20 14:00 08/20/20 13:05 08/20/20 13:05 08/20/20 13:05 Intake & Output 08/19/20 08/20/20 08/21/20 06:59 06:59 06:59 Intake Total 2940 1445 735 Balance 2940 1445 735 Weight 155.4 kg 156.7 kg Physical Exam: General appearance: PRESENT: morbidly obese Head exam: PRESENT: atraumatic, normocephalic Eye exam: PRESENT: conjunctiva pink. ABSENT: pallor, scleral icterus Mouth exam: PRESENT: moist Respiratory exam: PRESENT: clear to auscultation [place] Cardiovascular exam: PRESENT: RRR, +S1, +S2. ABSENT: diastolic murmur, rubs, systolic murmur GI/Abdominal exam: PRESENT: normal bowel sounds, soft. ABSENT: tenderness Extremities exam: PRESENT: pedal edema - left foot and lower leg comparatively improving Musculoskeletal exam: PRESENT: ambulatory - with walker Neurological exam: PRESENT: alert, awake Skin exam: PRESENT: dry, warm, other - left foot dressing is satisfactory. Results Laboratory Results: 08/19/20 04:27 08/19/20 04:27 08/16/20 08:34 Foot - Abscess Gram Stain - Final 08/16/20 08:34 Foot - Abscess Wound Culture - Final Group B Beta Streptococcus Cutibacterium(Propion)Species No Anaerobic Organisms 08/16/20 08:35 Foot - Abscess Gram Stain - Final 08/16/20 08:35 Foot - Abscess Wound Culture - Final Group B Beta Streptococcus Cutibacterium(Propion)Species No Anaerobic Organisms 08/14/20 15:10 Blood Blood Culture (PCR) - Final 08/14/20 15:10 Blood Blood Culture - Final Arcanobacter Haemolyticum 08/14/20 16:42 Blood Blood Culture - Final NO GROWTH IN 5 DAYS Impressions: PICC Line Insertion 08/19/20 00:00 IMPRESSION: SUCCESSFUL PLACEMENT OF A 5 FR DUAL LUMEN 53 CM PICC IN THE LEFT BASILIC VEIN. Foot X-Ray 08/20/20 00:00 IMPRESSION: INTERVAL AMPUTATION OF THE 5TH METATARSAL. NO OTHER SIGNIFICANT BONY FINDINGS. Assessment & Plan - Diagnosis (1) Osteomyelitis of foot, left, acute Is this a current diagnosis for this admission?: Yes (2) Probable sepsis Is this a current diagnosis for this admission?: Yes (3) Uncontrolled type 2 diabetes mellitus Qualifiers: Glycemic state: with hyperglycemia Qualified Code(s): E11.65 - Type 2 diabetes mellitus with hyperglycemia Is this a current diagnosis for this admission?: Yes (4) HTN (hypertension) Qualifiers: Hypertension type: essential hypertension Qualified Code(s): I10 - Essential (primary) hypertension Is this a current diagnosis for this admission?: Yes (5) Morbid (severe) obesity due to excess calories Is this a current diagnosis for this admission?: Yes (6) Morbid obesity with body mass index of 40.0-44.9 in adult Is this a current diagnosis for this admission?: Yes (7) Anemia of chronic disease Is this a current diagnosis for this admission?: Yes - Time Time Spent with patient: 25-34 minutes Level of Care: TELE Medications reviewed and adjusted accordingly: Yes Anticipated discharge: Home with Homehealth Anticipated DC Timeframe: within 24 hours - Inpatient Certification Based on my medical assessment, after consideration of the patient's comorbidities, presenting symptoms, or acuity I expect that the services needed warrant INPATIENT care.: Yes I certify that my determination is in accordance with my understanding of Medicare's requirements for reasonable and necessary INPATIENT services [42 CFR 412.3e].: Yes Medical Necessity: Significant Comorbidiites Make Outpatient Treatment Too Risky, Need Close Monitoring Due to Risk of Patient Decompensation, Need For IV Fluids, Need For Continuous Telemetry Monitoring, Risk of Complication if Not Cared For in Hospital, Risk of Diagnosis Which Will Require Inpatient Eval/Care/Monitoring Post Hospital Care: D/C Public Opinion Survey Taker Documentation - Plan Summary Plan Summary: Continue current medial management. Follow up on wound vac device provision.
[2020-08-20] MEDS: OXYCODONE-ACETAMINOPHEN 5-325 MG TABLET PO PRN (21:29)
[2020-08-21] MEDS: PANTOPRAZOLE SODIUM 40 MG TABLET.DR PO SCH (05:27)
[2020-08-21] MEDS: INSULIN NPH (ISOPHANE), HUMAN 100 UNIT/ML 3 ML SUBCUT SCH (07:52)
[2020-08-21] MEDS: INSULIN LISPRO 100 UNIT/ML 3 ML VIAL SUBCUT SCH (07:53)
[2020-08-21 10:21] VITALS: BP 150/72
--- NOTE | 2020-08-22 13:53 | PDOC DISCHARGE SUMMARY ---
Impression - Admit/DC Date/PCP Admission Date/Primary Care Provider: 08/14/20 17:24 ROBERT MITCHELL Discharge Date: 08/21/20 - Discharge Diagnosis (1) Osteomyelitis of foot, left, acute Is this a current diagnosis for this admission?: Yes (2) Probable sepsis Is this a current diagnosis for this admission?: Yes (3) Uncontrolled type 2 diabetes mellitus Is this a current diagnosis for this admission?: Yes (4) HTN (hypertension) Is this a current diagnosis for this admission?: Yes (5) Morbid (severe) obesity due to excess calories Is this a current diagnosis for this admission?: Yes (6) Morbid obesity with body mass index of 40.0-44.9 in adult Is this a current diagnosis for this admission?: Yes (7) Anemia of chronic disease Is this a current diagnosis for this admission?: Yes - Assessment Summary: Patient presented with worsening pain and swelling involving her left foot and her initial evaluation in the ED was suggestive of left foot infection with osteomyelitis. She was seen in consultation by the surgicalist and advised hospitalization for further evaluation and management. 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 her blood culture did not grow any significant bacterial. Her wound culture suggested soft tissue infection. She was managed with IV Vancomycin and Zosyn but eventually changed to oral antibiotic for 14 days therapy since she has no residual bone infection. Her left foot X-ray revealed complete removal of her left 5th metatarsal bone. she will be discharged home today and follow up with the surgical team, wound care center and myself in the office as instructed upon discharge. - Additional Information Resuscitation Status: Full Code Referrals: WOUND CARE [Outside] - 09/01/20 3:30 pm (FOLLOW UP IN 1-2 WEEKS) KACY ARNDT DPM [ACTIVE STAFF] - 09/02/20 11:15 am ROBERT MITCHELL MD [Primary Care Provider] - 09/02/20 9:00 am () Prescriptions: Amoxicillin/Potassium Clav [Augmentin 875-125 Tablet] 1 tab PO Q12 #28 tablet Home Medications: Metformin HCl 1,000 mg PO BID #60 tablet 11/16/18 Amlodipine Besylate [Norvasc 10 mg Tablet] 10 mg PO DAILY 06/04/20 Ferrous Sulfate [Feosol 325 mg Tablet] 325 mg PO DAILY 06/04/20 Hydrochlorothiazide [Hydrodiuril 12.5 mg Tablet] 12.5 mg PO DAILY 06/04/20 Insulin NPH Human Isophane [Novolin N Flexpen] 40 units SUBCUT QPM 06/04/20 Insulin NPH Human Isophane [Novolin N Flexpen] 50 units SUBCUT QAM 06/04/20 Insulin Regular, Human [Novolin R] 0 units SUBCUT .PERSLIDINGSCALE 06/04/20 Irbesartan 300 mg PO DAILY 06/04/20 Lactobacillus Acidophilus/Fos [Acidophilus Probiotic Tablet] 1 tab PO BID 06/04/20 Tramadol HCl [Ultram 50 mg Tablet] 50 mg PO Q6HP PRN #60 tablet 06/11/20 Amoxicillin/Potassium Clav [Augmentin 875-125 Tablet] 1 tab PO Q12 #28 tablet 08/21/20 History of Present Illiness History of Present Illness: AAMIR GUSMAN is a 35 year old female known to my practice who was referred to the ED for further evaluation due to worsening pain in her left foot. Patient reported that she had episode of fever 3 days prior to her presentation and developed pain in her left foot that worsen over last 2 days. She denied any instrumentation, trauma, or injury preceding her symptoms onset. She reported compliance with her left foot post 5th toe amputation dressing at home. Her home blood glucose level have been satisfactory until 3 days ago when it has remained above 200 mg/dL. She reported compliance with her medication and dietary restrictions. She denied any nausea, vomiting, abdominal pain, or diarrhea. No chest pain or difficulty with her breathing. Her initial ED evaluation was significant for worsening left foot open wound, leukocytosis and left foot X ray suggestive of osteomyelitis involving the 5th metatarsal bone. Her morbidities are as listed below. She was advised hospitalization for further evaluation and management. She will need surgical consultation for possible intervention. Hospital Course Hospital Course: Patient presented with worsening pain and swelling involving her left foot and her initial evaluation in the ED was suggestive of left foot infection with osteomyelitis. She was seen in consultation by the surgicalist and advised hospitalization for further evaluation and management. 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 her blood culture did not grow any significant bacterial. Her wound culture suggested soft tissue infection. She was managed with IV Vancomycin and Zosyn but eventually changed to oral antibiotic for 14 days therapy since she has no residual bone infection. Her left foot X-ray revealed complete removal of her left 5th metatarsal bone. she will be discharged home today and follow up with the surgical team, wound care center and myself in the office as instructed upon discharge. Physical Exam Vital Signs: Temp Pulse Resp BP Pulse Ox 98.1 F 77 18 144/84 H 100 08/21/20 08:34 08/21/20 08:34 08/21/20 08:34 08/21/20 08:34 08/21/20 08:34 Intake & Output 08/20/20 08/21/20 08/22/20 06:59 06:59 06:59 Intake Total 1445 1235 800 Balance 1445 1235 800 Weight 156.7 kg 156 kg General appearance: PRESENT: morbidly obese Head exam: PRESENT: atraumatic, normocephalic Eye exam: PRESENT: conjunctiva pink. ABSENT: pallor, sclera icterus Mouth exam: PRESENT: moist Respiratory exam: PRESENT: clear to auscultation [place] Cardiovascular exam: PRESENT: RRR, +S1, +S2. ABSENT: diastolic murmur, rubs, systolic murmur GI/Abdominal exam: PRESENT: normal bowel sounds, soft. ABSENT: tenderness Extremities exam: PRESENT: pedal edema - left foot and lower leg comparatively improving Musculoskeletal exam: PRESENT: ambulatory - with walker Neurological exam: PRESENT: alert, awake Skin exam: PRESENT: dry, warm, other - left foot dressing is satisfactory. Results Laboratory Results: WBC 9.4 10^3/uL (4.0-10.5) 08/19/20 04:27 RBC 3.45 10^6/uL (3.72-5.28) L 08/19/20 04:27 Hgb 8.0 g/dL (12.0-15.5) L 08/19/20 04:27 Hct 24.7 % (36.0-47.0) L 08/19/20 04:27 MCV 72 fl (80-97) L 08/19/20 04:27 MCH 23.2 pg (27.0-33.4) L 08/19/20 04:27 MCHC 32.3 g/dL (32.0-36.0) 08/19/20 04:27 RDW 19.0 % (11.5-14.0) H 08/19/20 04:27 Plt Count 481 10^3/uL (150-450) H 08/19/20 04:27 Lymph % (Auto) 17.7 % (13-45) 08/19/20 04:27 [place] % (Auto) 8.0 % (3-13) 08/19/20 04:27 Eos % (Auto) 4.2 % (0-6) 08/19/20 04:27 Baso % (Auto) 0.6 % (0-2) 08/19/20 04:27 Absolute Neuts (auto) 6.5 10^3/uL (1.7-8.2) 08/19/20 04:27 Absolute Lymphs (auto) 1.7 10^3/uL (0.5-4.7) 08/19/20 04:27 Absolute Monos (auto) 0.7 10^3/uL (0.1-1.4) 08/19/20 04:27 Absolute Eos (auto) 0.4 10^3/uL (0.0-0.6) 08/19/20 04:27 Absolute Basos (auto) 0.1 10^3/uL (0.0-0.2) 08/19/20 04:27 Seg Neutrophils % 69.5 % (42-78) 08/19/20 04:27 Sodium 138.8 mmol/L (137-145) 08/19/20 04:27 Potassium 3.8 mmol/L (3.6-5.0) 08/19/20 04:27 Chloride 103 mmol/L (98-107) 08/19/20 04:27 Carbon Dioxide 28 mmol/L (22-30) 08/19/20 04:27 Anion Gap 8 (5-19) 08/19/20 04:27 BUN 7 mg/dL (7-20) 08/19/20 04:27 Creatinine 0.87 mg/dL (0.52-1.25) 08/19/20 04:27 Est GFR ( Amer) > 60 (>60) 08/19/20 04:27 Est GFR (MDRD) Non-Af > 60 (>60) 08/19/20 04:27 Glucose 130 mg/dL (75-110) H 08/19/20 04:27 POC Glucose 156 mg/dL (70-110) H 08/21/20 06:10 Hemoglobin A1c % 8.4 % (4.7-6.0) H 08/15/20 06:12 Lactic Acid 2.3 mmol/L (0.7-2.1) H 08/14/20 15:10 Calcium 8.8 mg/dL (8.4-10.2) 08/19/20 04:27 Total Bilirubin 0.6 mg/dL (0.2-1.3) 08/15/20 06:12 Direct Bilirubin 0.2 mg/dL (0.0-0.4) 08/15/20 06:12 Neonat Total Bilirubin Not Reportable 08/15/20 06:12 Neonat Direct Bilirubin Not Reportable 08/15/20 06:12 Neonat Indirect Bili Not Reportable 08/15/20 06:12 AST 11 U/L (14-36) L 08/15/20 06:12 ALT 7 U/L (<35) 08/15/20 06:12 Alkaline Phosphatase 73 U/L (38-126) 08/15/20 06:12 C-Reactive Protein 252.6 mg/L (<10.0) H 08/14/20 15:10 Total Protein 7.0 g/dL (6.3-8.2) 08/15/20 06:12 Albumin 2.9 g/dL (3.5-5.0) L 08/15/20 06:12 Triglycerides 122 mg/dL (<150) 08/15/20 06:12 Cholesterol 108.73 mg/dL (0-200) 08/15/20 06:12 LDL Cholesterol Direct 55 mg/dL (<100) 08/15/20 06:12 VLDL Cholesterol 24.0 mg/dL (10-31) 08/15/20 06:12 HDL Cholesterol 22 mg/dL (>40) L 08/15/20 06:12 Time Trough Drawn 202808/17/20 20:29 Vancomycin Trough 9.1 ug/mL (5.0-20.0) 08/17/20 20:29 Influenza A (RT-PCR) NEGATIVE (NEGATIVE) 08/15/20 19:27 Influenza B (RT-PCR) NEGATIVE (NEGATIVE) 12/04/20 19:27 RSV (RT-PCR) NEGATIVE (NEGATIVE) 08/15/20 19:27 SARS-CoV-2 Rap RNA(RT-PCR) NEGATIVE (NEGATIVE) 08/15/20 19:27 Blood Type B POSITIVE 08/17/20 09:55 Blood Type Confirm B POSITIVE 08/17/20 11:17 Antibody Screen NEGATIVE 08/17/20 09:55 Crossmatch See Detail 08/17/20 09:55 Impressions: Foot X-Ray 08/14/20 14:49 IMPRESSION: Osteomyelitis in the 5th metatarsal. PICC Line Insertion 08/19/20 00:00 IMPRESSION: SUCCESSFUL PLACEMENT OF A 5 FR DUAL LUMEN 53 CM PICC IN THE LEFT BASILIC VEIN. Foot X-Ray 08/20/20 00:00 IMPRESSION: INTERVAL AMPUTATION OF THE 5TH METATARSAL. NO OTHER SIGNIFICANT BONY FINDINGS. Plan Health Concerns: High readmission risk. Compliance with medication, dietary restrictions, and wound management. Plan of Treatment: Maintain on oral antibiotic therapy x 14 days., RETENTION SPECIALIST service to provide visiting nurse to monitor wound management on wound vac therapy. Follow up with surgical team and wound care center as instructed upon discharge. Goals: Reduce readmission risk, improve glycemic control and wound healing prospect. Time Spent: Greater than 30 Minutes - I had extensive discussion with patient during this hospitalization regarding her high risk of complication from uncon trolled diabetes mellitus and future amputation if she continue on current trend of noncompliabnce with her care plan. Stroke Is this a Stroke Patient?: No Acute Heart Failure Is this a Heart Failure Patient?: No
--- NOTE | 2020-08-28 12:48 | Progress Note ---
Provider Note Provider Note: Please see my discharge and progress note diagnoses including osteomyelitis of left foot ( that is bone involvement with infection)
== END 2020-08-21 10:30 | disposition home health service (06) | DRG 616 ==
LOC: ER 14:01 → EH 17:24 → 4N 20:06
PROVIDERS: ADMIT Internal Medicine Geriatric Medicine; ATTEND Internal Medicine Geriatric Medicine
PROC: 0Y6N0ZF Detachment at Left Foot, Partial 5th Ray, Open Approach (ICD-10-PCS; principal; 2020-08-16 08:15)
PROC: 30233N1 Transfusion of Nonautologous Red Blood Cells into Peripheral Vein, Percutaneous Approach (ICD-10-PCS; 2020-08-17)
PROC: 02HV33Z Insertion of Infusion Device into Superior Vena Cava, Percutaneous Approach (ICD-10-PCS; 2020-08-19)
PROC: B518ZZA Fluoroscopy of Superior Vena Cava, Guidance (ICD-10-PCS; 2020-08-19)
PROC: B548ZZA Ultrasonography of Superior Vena Cava, Guidance (ICD-10-PCS; 2020-08-19)
DX: E11.69 Type 2 diabetes mellitus with other specified complication (principal); A41.9 Sepsis, unspecified organism; M86.172 Other acute osteomyelitis, left ankle and foot; Z68.41 Body mass index [BMI] 40.0-44.9, adult; B95.1 Streptococcus, group B, as the cause of diseases classified elsewhere; E11.65 Type 2 diabetes mellitus with hyperglycemia; E66.01 Morbid (severe) obesity due to excess calories; Z20.828 Contact with and (suspected) exposure to other viral communicable diseases; I10 Essential (primary) hypertension; D63.8 Anemia in other chronic diseases classified elsewhere; E11.628 Type 2 diabetes mellitus with other skin complications; L08.89 Other specified local infections of the skin and subcutaneous tissue; Z79.4 Long term (current) use of insulin; Z79.899 Other long term (current) drug therapy; Z89.422 Acquired absence of other left toe(s); Z83.3 Family history of diabetes mellitus
CPT/HCPCS: 01480; 36415; 36430; 36573; 80048; 80053; 80061; 80202; 82962; 83036; 83605; 85025; 86140; 86850; 86900; 86901; 86920; 87040; 87070; 87075; 87077; 87150; 87205; 88305; 88311; 93005; 93010; 96365; 99140; 99285; 0241U; C9803; J0131; J0330; J1642; J1650; J1815; J1885; J2250; J2405; J2543; J2704; J3010; J3370; J3490; J7030; J7050; J7060; P9016

== ENCOUNTER → 2020-08-26 | Outpatient (CLI) | payer OTHER ==
--- NOTE | 2020-08-26 13:40 | RADIOLOGY REPORT (SQ) ---
EXAM DESCRIPTION: CHEST 2 VIEWS IMAGES COMPLETED DATE/TIME: 08/26/2020 12:24 pm REASON FOR STUDY: (J93.9)PNEUMOTHORAX, UNSPECIFIED COMPARISON: None. EXAM PARAMETERS: NUMBER OF VIEWS: two views TECHNIQUE: Digital Frontal and Lateral radiographic views of the chest acquired. RADIATION DOSE: NA LIMITATIONS: none FINDINGS: LUNGS AND PLEURA: No opacities, masses or pneumothorax. No pleural effusion. MEDIASTINUM AND HILAR STRUCTURES: No masses or contour abnormalities. HEART AND VASCULAR STRUCTURES: Heart normal size. No evidence for failure. BONES: No acute findings. HARDWARE: None in the chest. OTHER: No other significant finding. IMPRESSION: NO ACUTE RADIOGRAPHIC FINDING IN THE CHEST. TECHNICAL DOCUMENTATION: JOB ID: [id number] 2010 [employer]- All Rights Reserved Reading location - IP/workstation name: [email or web address]
== END ==
LOC: RAD 12:03
PROVIDERS: ATTEND Preventive Medicine Undersea and Hyperbaric Medicine
DX: J93.9 Pneumothorax, unspecified (principal)
CPT/HCPCS: 71046

== ENCOUNTER → 2020-09-25 | Outpatient (CLI) | payer OTHER ==
[2020-09-25 15:06] LABS: ABSOLUTE EOSINOPHILS # (AUTO) 0.1 10^3/uL (0.0-0.6); ABSOLUTE LYMPHOCYTES (AUTO) 2.7 10^3/uL (0.5-4.7); ABSOLUTE MONOCYTES (AUTO) 0.6 10^3/uL (0.1-1.4); ABSOLUTE NEUT (AUTO) 5.2 10^3/uL (1.7-8.2); BASOPHILS % (AUTO) 0.5 % (0-2); EOSINOPHILS % (AUTO) 1.2 % (0-6); HEMATOCRIT 31.5 % (36.0-47.0); HEMOGLOBIN 10.8 g/dL (12.0-15.5); MEAN CORPUSCULAR HGB CONC 34.4 g/dL (32.0-36.0); MEAN CORPUSCULAR VOLUME 70 fl (80-97); MONOCYTES % (AUTO) 6.6 % (3-13); PLATELET COUNT 415 10^3/uL (150-450); RED BLOOD COUNT 4.52 10^6/uL (3.72-5.28); RED CELL DISTRIBUTION WIDTH 20.3 % (11.5-14.0); SEGMENTED NEUTROPHILS % (AUTO) 60.7 % (42-78); TOTAL CELLS COUNTED % (AUTO) 100 %; WHITE BLOOD COUNT 8.6 10^3/uL (4.0-10.5)
--- NOTE | 2020-09-25 15:20 | RADIOLOGY REPORT (SQ) ---
EXAM DESCRIPTION: FOOT LEFT COMPLETE IMAGES COMPLETED DATE/TIME: 09/25/2020 2:55 pm REASON FOR STUDY: (L97.522)NON-PRS CHRONIC ULCER OTH PRT LEFT FOOT W FAT LAYER EXPOSED L97.522 NON- PRS CHRONIC ULCER OTH PRT LEFT FOOT W FAT LAYER E11.621 TYPE 2 DIABETES MELLITUS WITH FOOT ULCER COMPARISON: 08/20/2020 NUMBER OF VIEWS: Three views. TECHNIQUE: AP, lateral and oblique radiographic images acquired of the left foot. LIMITATIONS: None. FINDINGS: Interval development of periosteal reaction along the lateral surface of the proximal 4th metatarsal status post amputation of the 5th metatarsal. Dystrophic calcifications in the more later al soft tissues. Plantar swelling. No foreign body. IMPRESSION: Periosteal reaction for which cannot exclude osteomyelitis. TECHNICAL DOCUMENTATION: JOB ID: [id number] 2010 [email or web address]- All Rights Reserved Reading location - IP/workstation name: [email or web address]
[2020-09-25 15:24] LABS: ALBUMIN 3.9 g/dL (3.5-5.0); ALKALINE PHOSPHATASE 88 U/L (38-126); ANION GAP 6 (5-19); ASPARTATE AMINO TRANSFERASE 14 U/L (14-36); BILIRUBIN,DIRECT 0.2 mg/dL (0.0-0.4); BILIRUBIN,TOTAL 0.3 mg/dL (0.2-1.3); BLOOD UREA NITROGEN 13 mg/dL (7-20); C-REACTIVE PROTEIN 15.3 mg/L (<10.0); CALCIUM 9.8 mg/dL (8.4-10.2); CARBON DIOXIDE 28 mmol/L (22-30); CHLORIDE 101 mmol/L (98-107); GLUCOSE 129 mg/dL (75-110); POTASSIUM 4.2 mmol/L (3.6-5.0); TOTAL PROTEIN 8.4 g/dL (6.3-8.2)
[2020-09-25 15:42] LABS: ERYTHROCYTE SEDIMENTATION RATE 64 mm/hr (0-20)
== END ==
LOC: RAD 14:27
PROVIDERS: ATTEND Preventive Medicine Undersea and Hyperbaric Medicine
DX: E11.621 Type 2 diabetes mellitus with foot ulcer (principal); L97.522 Non-pressure chronic ulcer of other part of left foot with fat layer exposed
CPT/HCPCS: 36415; 80053; 85025; 85652; 86140